=== PATIENT | male | born 1990 | race Caucasian/White ===

== ENCOUNTER → 2021-04-23 13:32 | Outpatient (BNVA) | payer OTHER, SELFPAY | PROVIDERS: PCP Internal Medicine; Visit Provider Internal Medicine | DX: S62.336D Displaced fracture of neck of fifth metacarpal bone, right hand, subsequent encounter for fracture with routine healing (principal); W34.09XD Accidental discharge from other specified firearms, subsequent encounter | CPT/HCPCS: 99202 ==

== ENCOUNTER → 2021-07-30 15:31 | Outpatient (BNVA) | payer OTHER, SELFPAY | PROVIDERS: PCP Internal Medicine | DX: Z02.1 Encounter for pre-employment examination (principal) ==

== ENCOUNTER 2022-05-16 17:55 | Emergency (ER) | payer OTHER, SELFPAY ==
--- NOTE | ~2022-05-16 | XR_ITS ---
EXAMINATION: PORTABLE CHEST 1 VIEW CLINICAL INFORMATION: hypoxia . COMPARISON: 07/27/2012. TECHNIQUE: Portable frontal view of the chest was obtained. FINDINGS: The lungs are hypoexpanded with minimal basilar atelectasis. No focal infiltrate, effusion, edema, or pneumothorax. Cardiac and mediastinal silhouettes are within normal limits for technique. No acute bony abnormality seen. XR/XR chest 1V IMPRESSION: Hypoexpanded with minimal basilar atelectasis but otherwise no evidence of acute disease.
--- NOTE | ~2022-05-16 | CT_ITS ---
EXAMINATION: CTA CHEST PE STUDY CLINICAL INFORMATION: hypoxia, tachycardia COMPARISON: No pertinent prior studies are available for comparison. TECHNIQUE: Prior to contrast administration, noncontrast localization images were obtained. After the administration of 65 mL of Omnipaque nonionic IV contrast, contiguous thin slice helical images were obtained through the thorax. Reformatted MIP images in the coronal and sagittal planes were obtained at the acquisition workstation. This CT examination was performed using dose optimization techniques as appropriate, variously including the following: *Automated exposure control *Adjustment of mA and/or kV according to patient size (this includes techniques or standardized protocols for targeted exams where dose is matched to indication/reason for exam; i.e. extremities or head) *Use of iterative reconstruction technique DLP: 453 mGy-cm. FINDINGS: The bolus timing on this study was suboptimal but acceptable for visualization of the pulmonary arterial tree. There are no intraluminal pulmonary arterial filling defects present to suggest central pulmonary embolism. Dependent atelectasis. No abnormal pulmonary nodules or masses are appreciated. No significant hilar or mediastinal adenopathy. There is no evidence of pleural effusion or pneumothorax. The heart is normal in size. No evidence of ventricular septal bowing or right heart strain. Great vessels are normal. Small hiatal hernia. There is no pericardial effusion or pericardial thickening. Limited evaluation of the upper abdominal viscera demonstrates prominent spleen measuring 16.[address] in AP length. CT/CT angio chest PE protocol IMPRESSION: No central pulmonary emboli. Distal branch vessels are less well seen but no segmental or subsegmental pulmonary emboli appreciated either VTE: Negative
[2022-05-16 18:12] LABS: Glucose, Whole Blood 120 mg/dL (60-115)
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
[2022-05-16 18:15] VITALS: BP 129/73; PULSE 121; O2SAT 85
--- NOTE | 2022-05-16 18:21 | ECG_ITS ---
Test Reason : GENERAL MEDICAL Blood Pressure : / mmHG Vent. Rate : 125 BPM Atrial Rate : 125 BPM P-R Int : 146 ms QRS Dur : 108 ms QT Int : 316 ms P-R-T Axes : 039 -26 032 degrees QTc Int : 456 ms Sinus tachycardia Minimal voltage criteria for LVH, may be normal variant ( R in aVL ) Abnormal ECG No previous ECGs available Referred By: Hannah Watt Electronically Signed By:ANÍBAL OLSON
[2022-05-16 18:30] VITALS: BP 116/49; PULSE 127; RESP 18; TEMP 37; O2SAT 96; BMI 30.8
[2022-05-16] MEDS: 0.9 % Sodium Chloride 1,000 ML 999 ML IVCONT ×2 (18:52→21:23)
[2022-05-16 18:54] LABS: MANUAL DIFF FLAG NO
[2022-05-16 18:57] LABS: Basophils Absolute Auto 0.2 X10*3/uL (0.0-0.2); Basophils Percent Auto 1.9 % (0-2); Eosinophils Absolute Auto 0.4 X10*3/uL (0.0-0.4); Eosinophils Percent Auto 4.2 % (0-4); Hematocrit 45.8 % (42.0-52.0); Hemoglobin 15.5 g/dl (14.0-18.0); Imm Gran Abs Auto 0.03 X10*3/uL (0.00-0.03); Imm Gran Pct Auto 0.4 % (0.0-0.4); Lymphocytes Absolute Auto 2.8 X10*3/uL (1.2-4.9); Lymphocytes Percent Auto 33.1 % (20-40); Mean Corpuscular HGB Conc 33.8 g/dl (31.0-36.0); Mean Corpuscular Hemoglobin 31.3 pg (27.0-33.0); Mean Corpuscular Volume 92.5 fL (80.0-98.0); Mean Platelet Volume 11.6 fL (9.4-12.4); Monocytes Absolute Auto 0.7 X10*3/uL (0.1-1.2); Neutrophils Absolute Auto 4.4 x10*3/uL (2.0-8.3); Neutrophils Percent Auto 52.4 % (45-73); Platelet Count 160 X10*3/uL (160-400); Red Blood Count 4.95 X10*6/uL (4.60-5.80); Red Cell Distribution Width 12.9 % (11.0-16.0); White Blood Count 8.5 X10*3/uL (4.8-10.8)
[2022-05-16 19:17] LABS: Alanine Aminotransferase 85 U/L (0-40); Albumin Level 4.5 g/dL (3.5-5.0); Alkaline Phosphatase 144 U/L (39-117); Anion Gap 19 (12-20); Aspartate Amino Transferase 101 U/L (5-37); Bilirubin Direct 0.3 mg/dL (0.0-0.5); Bilirubin Total 0.7 mg/dL (0.0-1.0); Blood Urea Nitrogen 8 mg/dL (9-16); Calcium 9.4 mg/dL (8.4-10.2); Carbon Dioxide 25 mmol/L (22-29); Chloride 106 mmol/L (96-108); Creatinine Clr Calc Pharmacy 155.6; Estimated Glomerular Filt Rate > 60; Ethanol 374 mg/dL; Glucose Random 124 mg/dL (60-115); Lipase 19 U/L (8-78); Sodium 146 mmol/L (135-145); Total Protein 8.4 g/dL (6.5-8.0)
[2022-05-16 19:19] LABS: Troponin-I High Sensitivity < 3.5 ng/L (<3.5-35.0)
[2022-05-16 19:34] LABS: D Dimer High Sensitivity < 150 NG/ML
[2022-05-16 19:50] VITALS: BP 113/57; PULSE 118; RESP 19; TEMP 36.8; O2SAT 94
[2022-05-16 20:00] VITALS: BP 113/57; PULSE 127; RESP 16; O2SAT 95
--- NOTE | 2022-05-16 20:28 | PC.NURSE ---
pt a&ox3, sinus tach on monitor, vss, 18G IV placed left AC, labs drawn, 1L NS running, urine sample obtained, no new orders at this time.
[2022-05-16 20:38] LABS: Appearance Urine Clear; Color Urine Yellow; Glucose Urine UA Negative (Negative); Leukocyte Esterase Urine Negative (Negative); Nitrite Urine Negative (Negative); PH 6.5 (5.0-9.0); Urine Blood Negative (Negative); Urine Ketones Negative (Negative); Urine Protein Negative (Neg-Trace)
[2022-05-16 20:51] LABS: Amphetamine Screen Urine Not Detected (Not Detect); Barbiturates, Urine Not Detected (Not Detect); Benzodiazepines Screen Urine Not Detected (Not Detect); Cannabinoid Screen Urine Not Detected (Not Detect); Cocaine Screen Urine Not Detected (Not Detect); Fentanyl, urine Not Detected (Not Detect); Opiate Screen Urine Not Detected (Not Detect); Phencyclidine Screen Urine Not Detected (Not Detect)
--- NOTE | 2022-05-16 21:37 | PC.NURSE ---
pt taken off oxygen to test O2. pt desats into the 90's. pt placed back on O2. Will Medicated.
[2022-05-16] MEDS: iohexoL 350 MG/ML 100 ML INFUS..BTL IV (21:58)
[2022-05-16] MEDS: LORazepam 1 MG TABLET 2 MG PO (21:59)
[2022-05-16 22:35] LABS: COVID-19 Test Negative (Negative); IDNOW Serial# 55D5AD1C
[2022-05-16 23:30] VITALS: BP 135/86; PULSE 88; RESP 17; TEMP 36.4; O2SAT 94
--- NOTE | 2022-05-16 23:32 | PC.NURSE ---
Reviewed discharge instructions with pt. pt verbalized underttanding.
== END 2022-05-16 23:37 | disposition home or self-care (01) ==
PROVIDERS: Nurse Practitioner Family; Emergency Provider Student in an Organized Health Care Education/Training Program
DX: F10.129 Alcohol abuse with intoxication, unspecified (principal); R00.0 Tachycardia, unspecified; R09.02 Hypoxemia; Y90.8 Blood alcohol level of 240 mg/100 ml or more; Z20.822 Contact with and (suspected) exposure to COVID-19; Z79.899 Other long term (current) drug therapy
CPT/HCPCS: 36415; 71045; 71275; 80048; 80076; 80307; 81003; 82077; 82947; 83690; 83735; 84484; 85025; 85379; 87635; 93005; 96360; 99285; Q9967

== ENCOUNTER 2023-02-11 06:02 | Inpatient (IN) | payer OTHER, SELFPAY ==
[2023-02-11] VITALS (16 sets, daily range): BP systolic 115–156; BP diastolic 55–93; PULSE 106–130; RESP 17–24; TEMP 36.6–37.1; O2SAT 92–100; BMI 30.8
--- NOTE | 2023-02-11 | ECG_ITS ---
Test Reason : TACHYCARDIA Blood Pressure : / mmHG Vent. Rate : 127 BPM Atrial Rate : 127 BPM P-R Int : 152 ms QRS Dur : 088 ms QT Int : 316 ms P-R-T Axes : 052 -07 030 degrees QTc Int : 459 ms Sinus tachycardia Otherwise normal ECG When compared with ECG of 16-MAY-2022 18:42, No significant change was found Referred By: Generic ED Physician Electronically Signed By:TITI HUDSON
--- NOTE | ~2023-02-11 | CT_ITS ---
EXAMINATION: CT ABDOMEN AND PELVIS WITHOUT CONTRAST CLINICAL INFORMATION: Pancreatitis COMPARISON: None available. TECHNIQUE: Multidetector volumetric imaging was performed from the superior aspect of the liver through the pubic symphysis. Sagittal and coronal reformatted images were obtained on the technologist's workstation. This CT examination was performed using dose optimization techniques as appropriate, variously including the following: *Automated exposure control *Adjustment of mA and/or kV according to patient size (this includes techniques or standardized protocols for targeted exams where dose is matched to indication/reason for exam; i.e. extremities or head) *Use of iterative reconstruction technique DLP: 88 5 mGy-cm FINDINGS: LUNG BASES: The visualized lung bases are unremarkable. LIVER, GALLBLADDER, AND BILIARY TREE: Enlarged fatty liver. The gallbladder is normal. There is no biliary duct dilatation. PANCREAS: Unremarkable. SPLEEN: Unremarkable. ADRENAL GLANDS: Unremarkable. KIDNEYS AND URETERS: The kidneys are normal in size, shape, and attenuation. No hydronephrosis, hydroureter, or calculi seen. No perinephric stranding. BLADDER: Unremarkable. GASTROINTESTINAL TRACT: The small and large bowel are unremarkable. The appendix is unremarkable. ABDOMINAL WALL: No significant hernia is appreciated. Skin thickening and stranding of the subcutaneous fat of the right flank and buttock. LYMPH NODES: Normal. VASCULAR: Unremarkable. PELVIC VISCERA: Unremarkable. OSSEOUS STRUCTURES: Unremarkable. CT/CT abdomen pelvis wo IV con IMPRESSION: Enlarged fatty liver. Normal-appearing pancreas. Skin thickening and stranding of the subcutaneous fat over the right flank and buttock. Differential would include changes related to trauma cellulitis. Clinical correlation recommended. Fleischner guidelines were followed.
--- NOTE | ~2023-02-11 | CT_ITS ---
CT HEAD WITHOUT IV CONTRAST CT CERVICAL SPINE WITHOUT IV CONTRAST INDICATION: Fall. COMPARISON: None available. TECHNIQUE: Multidetector CT acquisitions of the head and cervical spine were obtained without IV contrast. Multiplanar reformats were acquired and utilized for image interpretation. This CT examination was performed using dose optimization techniques as appropriate, variously including the following: *Automated exposure control *Adjustment of mA and/or kV according to patient size (this includes techniques or standardized protocols for targeted exams where dose is matched to indication/reason for exam; i.e. extremities or head) *Use of iterative reconstruction technique FINDINGS: HEAD: There is no intracranial hemorrhage, hydrocephalus, extra-axial surface collection, midline shift, or other herniation pattern. Yan to white matter differentiation is diffusely maintained without evidence of an evolved acute territorial infarct. The basilar cisterns are preserved. No significant soft tissue abnormality. No acute osseous abnormality. The paranasal sinuses and the mastoid air cells are well aerated. CERVICAL SPINE: Straightening the cervical lordosis. The vertebral body heights are maintained. There is moderate disc volume loss at C4-C5. There are no acute fractures and there are no acute subluxations. Craniocervical junction is intact. CT/CT cervical spine wo IV con IMPRESSION: - No acute intracranial findings. - No acute osseous findings within the cervical spine.
--- NOTE | ~2023-02-11 | CT_ITS ---
CT HEAD WITHOUT IV CONTRAST CT CERVICAL SPINE WITHOUT IV CONTRAST INDICATION: Fall. COMPARISON: None available. TECHNIQUE: Multidetector CT acquisitions of the head and cervical spine were obtained without IV contrast. Multiplanar reformats were acquired and utilized for image interpretation. This CT examination was performed using dose optimization techniques as appropriate, variously including the following: *Automated exposure control *Adjustment of mA and/or kV according to patient size (this includes techniques or standardized protocols for targeted exams where dose is matched to indication/reason for exam; i.e. extremities or head) *Use of iterative reconstruction technique FINDINGS: HEAD: There is no intracranial hemorrhage, hydrocephalus, extra-axial surface collection, midline shift, or other herniation pattern. [place] to white matter differentiation is diffusely maintained without evidence of an evolved acute territorial infarct. The basilar cisterns are preserved. No significant soft tissue abnormality. No acute osseous abnormality. The paranasal sinuses and the mastoid air cells are well aerated. CERVICAL SPINE: Straightening the cervical lordosis. The vertebral body heights are maintained. There is moderate disc volume loss at C4-C5. There are no acute fractures and there are no acute subluxations. Craniocervical junction is intact. CT/CT head/brain wo IV con IMPRESSION: - No acute intracranial findings. - No acute osseous findings within the cervical spine.
--- NOTE | ~2023-02-11 | CT_ITS ---
EXAMINATION: CT CHEST WITHOUT CONTRAST CLINICAL INFORMATION: Rule out pneumonia COMPARISON: Previous chest CT and chest x-ray from April 2022 TECHNIQUE: Multidetector volumetric CT imaging of the chest was done. Axial MIP volume rendering provided. Sagittal and coronal reformatted images were obtained. This CT examination was performed using dose optimization techniques as appropriate, variously including the following: *Automated exposure control *Adjustment of mA and/or kV according to patient size (this includes techniques or standardized protocols for targeted exams where dose is matched to indication/reason for exam; i.e. extremities or head) *Use of iterative reconstruction technique DLP: 337 mGy-cm FINDINGS: LUNGS: The lungs are clear with no evidence of inflammation or nodules. MEDIASTINUM: The wall of the esophagus is diffusely thickened and the esophagus is slightly dilated and fluid-filled. The mediastinum is otherwise normal. CORONARY ARTERY CALCIFICATION: None visualized on this study. PLEURA: There is no pleural effusion. No pleural mass or thickening. AXILLA: No lymphadenopathy. UPPER ABDOMEN: Unremarkable. OSSEOUS STRUCTURES: Unremarkable. CT/CT chest wo IV con IMPRESSION: Diffuse wall thickening of the esophagus. The esophagus is slightly dilated and fluid-filled. This is a new finding from April 2022 exam. Esophagitis should be considered. Fleischner guidelines were followed.
[2023-02-11] MEDS: 0.9 % Sodium Chloride 1,000 ML 999 ML IV ×2 (06:23→07:47)
[2023-02-11] MEDS: LORazepam 2 MG/ML VIAL IVPUSH (06:24)
[2023-02-11] MEDS: ondansetron HCL 4 MG/2 ML VIAL IVPUSH ×4 (06:30→19:40)
[2023-02-11 06:34] LABS: Basophils Absolute Auto 0.1 X10*3/uL (0.0-0.2); Basophils Percent Auto 0.3 % (0-2); Hematocrit 44.7 % (42.0-52.0); Hemoglobin 16.4 g/dl (14.0-18.0); Imm Gran Abs Auto 0.23 X10*3/uL (0.00-0.03); Imm Gran Pct Auto 0.8 % (0.0-0.4); Lymphocytes Absolute Auto 1.2 X10*3/uL (1.2-4.9); Lymphocytes Percent Auto 3.9 % (20-40); MANUAL DIFF FLAG SCAN; Mean Corpuscular HGB Conc 36.7 g/dl (31.0-36.0); Mean Corpuscular Volume 84.5 fL (80.0-98.0); Mean Platelet Volume 12.2 fL (9.4-12.4); Monocytes Absolute Auto 1.7 X10*3/uL (0.1-1.2); Monocytes Percent Auto 5.7 % (2-11); Neutrophils Absolute Auto 26.6 x10*3/uL (2.0-8.3); Neutrophils Percent Auto 89.3 % (45-73); Platelet Count 183 X10*3/uL (160-400); Red Blood Count 5.29 X10*6/uL (4.60-5.80); Red Cell Distribution Width 12.6 % (11.0-16.0); SCAN SMEAR FLAG 1; White Blood Count 29.7 X10*3/uL (4.8-10.8)
[2023-02-11 06:41] LABS: INTERNATIONAL NORM RATIO 1.1 (0.9-1.1); Prothrombin Time 12.5 SEC (10.0-13.1)
[2023-02-11 06:44] LABS: Partial Thromboplastin Time 31.6 SEC (26.0-36.4)
--- NOTE | 2023-02-11 06:48 | ED_ITS ---
HPI - General Adult General Chief complaint: General Medical Stated complaint: Alcohol withdrawal Time Seen by Provider: 02/11/23 06:30 Source: patient Mode of arrival: ambulatory Limitations: no limitations History of Present Illness HPI narrative: 32 yold male with pmh of alcohol abuse presents to the ED for alochol withdrawal. Patient states he has been sober for 18 days cold turkey and then last night he had a relapse started drinking a lot of alcohol. Patient was drinking to compensate for lack of alcohol and the past 18 days and to treat his incoming withdrawal. Patient states abdominal pain, nausea, and vomitting. Patient also states tremors. Related Data Home Medications Medication Instructions Recorded Confirmed lisinopril 10 mg tablet 1 tab PO DAILY 05/16/22 02/11/23 acamprosate 333 mg tablet,delayed 666 mg PO TID 02/11/23 02/11/23 release bupropion HCl 300 mg 24 hr tablet, 300 mg PO DAILY 02/11/23 02/11/23 extended release clonidine HCl 0.2 mg tablet 0.2 mg PO Q8H PRN Anxiety 02/11/23 02/11/23 folic acid 1 mg tablet 1 mg PO DAILY 02/11/23 02/11/23 mirtazapine 15 mg tablet 15 mg PO BEDTIME 02/11/23 02/11/23 multivitamin with folic acid 400 1 tab PO DAILY 02/11/23 02/11/23 mcg tablet (Daily-Roma (with folic acid)) naltrexone microspheres 380 mg 380 mg IM QMONTH 02/11/23 02/11/23 intramuscular suspension,extended release (Vivitrol) thiamine HCl (vitamin B1) 100 mg 100 mg PO DAILY 02/11/23 02/11/23 tablet Allergies Allergy/AdvReac Type Severity Reaction Status Date / Time No Known Allergies Allergy Verified 05/16/22 18:15 Review of Systems Review of Systems: Tremors. Abdominal pain, nausea, vomiting, Yes all other systems are reviewed and are negative PMFSH Past Medical History Medical History (Updated 02/12/23 @ 09:22 by Vickie Heath MD) Anxiety Depression Hypertension Social History Social History Household Members: Spouse Housing: Apartment Alcohol intake: current Alcohol intake frequency: 3 or more drinks per day Alcohol type: hard liquor Patient Tobacco Use Status: Never used Tobacco Use of substances other than those prescribed or required for medical reasons: No Currently Displaying Signs/Symptoms of Drug Intoxication Withdrawal: No Have you been hit, kicked, punched, or otherwise hurt by someone within the past year? If so, by whom?: No Do you feel safe in your current relationship?: Yes Is there a partner from a previous relationship who is making you feel unsafe now?: No Are you made to feel afraid or neglected: No Advance Directives: No Advance Directives Information Provided: No Do you have thoughts of harming others: None Do you have a plan to hurt others: No Plan Recently lost weight without trying: No Nutrition Risks: Poor intake 0-25% >4 days service: No Physical Exam ED Vital Signs: Vital Signs - 24 hr 02/11/23 06:03 02/11/23 06:32 02/11/23 09:46 Temperature 98.7 F 97.9 F Pulse Rate 129 H 127 H 130 H Respiratory Rate 20 21 H 24 H Blood Pressure 156/88 H 140/93 H 151/74 H Pulse Oximetry 97 99 95 Oxygen Delivery Method Room Air Room Air Room Air 02/11/23 10:35 Temperature Pulse Rate 130 H Respiratory Rate 21 H Blood Pressure Pulse Oximetry 96 Oxygen Delivery Method Room Air BMI result Body Mass Index 30.8 Const General: cooperative, healthy appearing, comfortable, no acute distress, well de veloped, alert, awake and Physically active Orientation/consciousness: oriented to person, oriented to place, oriented to time and patient oriented x3 [facility] Head: Yes normal to inspection, Yes No palpable skull fracture present, Yes normocephalic, Yes atraumatic and No abrasion Eyes General: appearance normal, both eyes and all related structures Neck Neck: Yes normal visual inspection, Yes full ROM, Yes no lymphadenopathy, Yes no meningeal signs, Yes trachea midline, Yes supple, No anterior neck swelling and No tender Chest Chest palpation & inspection: normal inspection of the chest and normal palpation of entire chest wall Resp Effort & Inspection: normal respiratory effort and able to speak in complete sentences Auscultation: clear to auscultation bilaterally Cardio Jugular venous distension: no JVD Heart sounds: S1 normal heart sound present and S2 normal heart sound present GI Inspection: Yes normal to inspection and No abdominal wall ecchymosis Palpation (GI): Soft to palpation, not firm, Tenderness to palpation present (GI) (generalized), no guarding and not rigid General: No CVA tenderness and Yes no CVA tenderness Back/Spine/Pelvis Back: no CVA tenderness, No CVA tenderness and No back tenderness Back/spine/pelvis image: 1. Positive for area of ecchymosis and tenderness. Negative for erythema or warmth. Skin General skin exam: no rashes or lesions noted and elasticity normal Neuro General: oriented to person, oriented to place, oriented to time, patient oriented x3, gait normal, tone normal, moves all extremities, Normal light touch and pain sensation, no meningeal signs, no focal motor deficits, CN's II-XI intact bilaterally and normal sensation to monofilament Extrem General: Yes normal to inspection and Yes full ROM Psych Appearance: grossly normal, well kempt and not disheveled Course Reevaluation(s) Reevaluation #1: Patient presented as alcohol severe withdrawal. Patient already received Ativan and Zofran. Patient will be started on phenobarbital. Chemistry shows severe electrolyte deficiency. Fluids ordered. Thiamine and folate ordered. Patient in an TIFFANIE. Magnesium normal. Anion Gap is 41. Patient dehydrated. White blood cell count [id number] was sent for abdominal CT scan to check for pancreatitis other lipase is normal. AK I would not do IV contrast. Was sent for chest CT to rule out walking pneumonia aspiration pneumonia. ABG ordered with bicarb of 15 Time: 07:42 Reevaluation #2: Patient placed on sodium bicarb drip. Waiting for CT scan imaging results. Time: 07:50 Reevaluation #3: CT scan of chest shows esophagitis. CT scan of abdomen states no pancreatitis just fatty liver also show possible right flank subcutaneous cellulitis. Upon evaluation of right flank, it was found that patient has actual ecchymosis patient states he might have fallen the past 3 days but do not remember. Right flank negative for any erythema or warmth. just ecchymosis. Not suspecting cellulitis. Right flank area is a contusion. Will order head CT cervical spine CT scan due to possibility of fall. Chest CT negative for pneumonia. Time: 20:26 Additional Reevaluation(s): Consulted with ICU Dr., Dr. Heath recommends patient be admitted to ICU. Rec ommends Garcia administration, serum osmolality, and Tylenol/salicylate levels. Patient had one episode of mild coffee ground emesis.Protonix given 80mg bolus. Dr. Mittal recommends patient being on protonix drip for gastritis. Medications Administered Generic Name Dose Route Start Last Admin Trade Name Freq PRN Reason Stop Dose Admin Acamprosate 666 mg 02/12/23 21:00 02/14/23 16:13 Acamprosate Calcium 333 Mg Tablet.Dr PO Not Given TID DEVON Benzocaine 1 lozenge 02/12/23 00:28 02/13/23 11:23 Throat Lozenge, Medicated Lozenge MUCOUS MEM 1 lozenge Q2H PRN Administration Sore Throat Bupropion HCl 300 mg 02/12/23 20:40 02/14/23 09:04 Bupropion Hcl Xl 300 Mg Tab.Er.24h PO 300 mg DAILY DEVON Administration Calcium Carbonate 750 mg 02/12/23 14:34 02/14/23 03:58 Calcium Carbonate 750 Mg Tab.Chew PO 750 mg Q4H PRN Administration heartburn Clonidine HCl 0.2 mg 02/12/23 20:38 02/14/23 12:02 Clonidine Hcl 0.2 Mg Tablet PO 0.2 mg Q8H PRN Administration Anxiety Protocol Folic Acid 1 mg 02/13/23 09:00 02/14/23 09:04 Folic Acid 1 Mg Tablet PO 1 mg DAILY DEVON Administration Lisinopril 10 mg 02/13/23 09:00 02/14/23 09:04 Lisinopril 10 Mg Tablet PO 10 mg DAILY DEVON Administration Protocol Mirtazapine 15 mg 02/12/23 21:00 02/13/23 20:31 Mirtazapine 15 Mg Tablet PO 15 mg BEDTIME DEVON Administration Multivitamins/Vitamin C 1 tab 02/13/23 09:00 02/14/23 09:05 Multivitamin Tablet PO 1 tab DAILY DEVON Administration Ondansetron HCl 4 mg 02/12/23 14:34 02/13/23 20:32 Ondansetron Hcl 4 Mg/2 Ml Vial IVPUSH 4 mg Q8H PRN Administration Nausea and Vomiting Phenobarbital 30 mg 02/13/23 21:00 02/14/23 09:04 Phenobarbital 30 Mg Tablet PO 02/15/23 09:01 30 mg BID DEVON Administration Protocol Phenobarbital Sodium 130 mg 02/14/23 12:09 02/14/23 13:46 Phenobarbital Sodium 130 Mg/Ml Vial IM 130 mg ONCE PRN Administration Alcohol Withdrawal Sucralfate 1 gm 02/13/23 11:30 02/14/23 17:22 Sucralfate Oral Suspension 1 Gm/10 Ml Oral.Susp PO 1 gm QIDACHS DEVON Administration Thiamine HCl 100 mg 02/13/23 09:00 02/14/23 09:05 Thiamine Hcl 100 Mg Tablet PO 100 mg DAILY DEVON Administration Discontinued Medications Generic Name Dose Route Start Last Admin Trade Name Terranceq PRN Reason Stop Dose Admin Al Hydroxide/Mg Hydroxide 30 ml 02/12/23 20:39 02/12/23 20:54 Magnesium Hydrox/Alum Hydrox 30 Ml Oral.Susp PO 02/12/23 20:40 30 ml ONCE ONE Administration Folic Acid 1 mg 02/11/23 07:08 02/11/23 07:59 Folic Acid 1 Mg Tablet PO 02/11/23 07:09 1 mg ONCE ONE Administration Sodium Chloride 1,000 mls @ 999 mls/hr 02/11/23 06:22 02/11/23 07:24 Ns IV 02/11/23 07:22 Infused .Q1H1M STA Infusion Sodium Chloride 1,000 mls @ 999 mls/hr 02/11/23 06:54 02/11/23 10:09 Ns IV 02/11/23 07:54 Infused .Q1H1M STA Infusion Sodium Bicarbonate 150 meq/ 1,000 mls @ 100 mls/hr 02/11/23 07:55 02/11/23 13:23 Dextrose IV 02/11/23 17:54 Infused .Q10H STA Infusion Albumin Human 100 mls @ 100 mls/hr 02/11/23 10:30 02/11/23 14:07 Kedbumin 25 % IV 02/11/23 12:29 Infused Q1H DEVON Infusion Potassium Chloride/Dextrose/Sod Cl 20 meq in 1,000 mls @ 150 mls/hr 02/11/23 12:00 02/11/23 20:33 Kcl 20 Meq In 5% Dex/0.45% Sod IVCONT Infused .Q6H40M DEVON Infusion Thiamine HCl 100 mg/ Sodium 101 mls @ 202 mls/hr 02/11/23 12:00 02/12/23 09:50 Chloride IV Infused DAILY DEVON Infusion Magnesium Sulfate 2 gm in 50 mls @ 25 mls/hr 02/11/23 11:52 02/11/23 15:49 Magnesium Sulfate/H2o IV 02/11/23 13:51 Infused ONCE ONE Infusion Potassium Phosphate 15 mmol in 250 mls @ 62.5 mls/hr 02/11/23 20:45 02/12/23 06:30 Kphos IV 02/12/23 04:44 Infused Q4H DEVON Infusion Potassium Chloride/Dextrose/Sod Cl 20 meq in 1,000 mls @ 100 mls/hr 02/11/23 20:45 02/13/23 23:21 Kcl 20 Meq In 5% Dex/0.9% Sod IVCONT 02/13/23 22:00 Infused .Q10H DEVON Infusion Potassium Phosphate 15 mmol in 250 mls @ 62.5 mls/hr 02/12/23 08:00 02/12/23 12:33 Kphos IV 02/12/23 11:59 Infused ONCE ONE Infusion Potassium Phosphate 15 mmol in 250 mls @ 62.5 mls/hr 02/12/23 08:57 02/12/23 11:17 Kphos IV 02/12/23 12:56 Not Given ONCE ONE Lorazepam 2 mg 02/11/23 06:15 02/11/23 06:24 Lorazepam 2 Mg/Ml Vial IVPUSH 02/11/23 06:16 2 mg ONCE ONE Administration Lorazepam 2 mg 02/11/23 06:52 02/11/23 08:10 Lorazepam 2 Mg/Ml Vial IVPUSH 02/11/23 06:53 Not Given ONCE ONE Morphine Sulfate 4 mg 02/11/23 06:52 02/11/23 07:57 Morphine Sulfate 4 Mg/Ml Cartridge IVPUSH 02/11/23 06:53 4 mg ONCE ONE Administration Protocol Ondansetron HCl 4 mg 02/11/23 06:28 02/11/23 06:30 Ondansetron Hcl 4 Mg/2 Ml Vial IVPUSH 02/11/23 06:29 4 mg ONCE ONE Administration Ondansetron HCl 4 mg 02/11/23 07:52 02/11/23 08:01 Ondansetron Hcl 4 Mg/2 Ml Vial IVPUSH 02/11/23 07:53 4 mg ONCE ONE Administration Ondansetron HCl 4 mg 02/11/23 13:24 02/11/23 19:40 Ondansetron Hcl 4 Mg/2 Ml Vial IVPUSH 4 mg Q4H PRN Administration Nausea Pantoprazole Sodium 80 mg 02/11/23 09:06 02/11/23 11:22 Pantoprazole Sodium 40 Mg/10 Ml Vial IVPUSH 02/11/23 09:07 80 mg ONCE ONE Administration Pantoprazole Sodium 40 mg 02/11/23 16:30 02/14/23 06:22 Pantoprazole Sodium 40 Mg/10 Ml Vial IVPUSH 40 mg BID@0630,1630 DEVON Administration Phenobarbital 60 mg 02/11/23 21:00 02/13/23 08:10 Phenobarbital 30 Mg Tablet PO 02/13/23 09:01 60 mg BID DEVON Administration Protocol Phenobarbital Sodium 427.7 mg 02/11/23 07:30 02/11/23 07:45 Phenobarbital Sodium 130 Mg/Ml Im Once IM 02/11/23 07:31 427.7 mg ONCE ONE Administration Protocol Phenobarbital Sodium 320.76 mg 02/11/23 10:30 02/11/23 13:35 Phenobarbital Sodium 130 Mg/Ml Vial Im Q3hx2 IM 02/11/23 13:31 320.76 mg Q3H DEVON Administration Protocol Thiamine HCl 100 mg 02/11/23 07:08 02/11/23 07:59 Thiamine Hcl 100 Mg Tablet PO 02/11/23 07:09 100 mg ONCE ONE Administration Medical Decision Making Medical Decision Making [facility] Narrative: 32-year-old male presents to the ED for alcohol withdrawal. Patient has history of alcohol abuse. Patient states he has been sober for 18 days and then went on a drinking binge. Patient states abdominal pain, nausea vomiting. Patient vital signs indicate tachycardia hypertensive. Due to severity of withdrawals patient given Ativan morphine and Zofran. Patient started on phenobarb protoc ol. Patient has white blood cell count [id number] no source of infection. CT scan is negative for pancreatitis. Chest CT negative for pneumonia. Abdominal CT scan shows fatty liver. Abdominal CT scan states right flank possible cellulitis but on physical exam right flank is not red or warm but does shows ecchymosis consistent with contusionn. Patient is in alcoholic ketoacidosis from alcohol abuse. Patient is in TIFFANIE. Patient's hyponatremia. Case discussed with ICU attending Dr. Heath for admission. Patient given sodium bicarb. patient given protonix for one episode of mild coffee ground emesis. Patient does not have pneumoina. Differential Diagnosis Differential Diagnoses: The differential diagnosis associated with the p resentation includes (Alcohol withdrawal, pancreatitis, delirium tremors, aspiration pneumonia, metabolic acidosis, brain bleed, skull fracture) Admission/Observation Consideration of admission/observation: Escalation of care including admission/observation considered Consult Healthcare Provider Management of the patient was discussed with: Hydrostatic Tubing Tester (Dr. Heath ICU) Lab Data MDM Lab Attestation statement: I reviewed the patient's lab results. 02/11/23 06:21 02/11/23 06:21 Labs: Lab Results 02/11/23 02/11/23 02/11/23 Range/Units 06:21 06:21 06:21 WBC 29.7 H (4.8-10.8) X10*3/uL RBC 5.29 (4.60-5.80) X10*6/uL Hgb 16.4 (14.0-18.0) g/dl Hct 44.7 (42.0-52.0) % MCV 84.5 (80.0-98.0) fL MCH 31.0 (27.0-33.0) pg MCHC 36.7 H (31.0-36.0) g/dl RDW 12.6 (11.0-16.0) % Plt Count 183 (160-400) X10*3/uL MPV 12.2 (9.4-12.4) fL Immature Gran % (Auto) 0.8 H (0.0-0.4) % Neut % (Auto) 89.3 H (45-73) % Lymph % (Auto) 3.9 L (20-40) % Putnam % (Auto) 5.7 (2-11) % Eos % (Auto) 0.0 (0-4) % Baso % (Auto) 0.3 (0-2) % Lymph # (Auto) 1.2 (1.2-4.9) X10*3/uL Putnam # (Auto) 1.7 H (0.1-1.2) X10*3/uL Eos # (Auto) 0.0 (0.0-0.4) X10*3/uL Baso # (Auto) 0.1 (0.0-0.2) X10*3/uL Abs Immat Gran (auto) 0.23 H (0.00-0.03) X10*3/uL Absolute Neuts (auto) 26.6 H (2.0-8.3) x10*3/uL Absolute Nucleated RBC 0.000 (0.0-0.012) X10*3/uL Nucleated RBC % (auto) 0.0 (0.0-0.2) /100WBC Smear Tech's Comments VERIFIED PT 12.5 (10.0-13.1) SEC INR 1.1 (0.9-1.1) APTT 31.6 (26.0-36.4) SEC O2 Saturation % ABG pH at Pt Temp (7.35-7.45) ABG pCO2 at Pt Temp (32-45) mmHg ABG pO2 at Pt Temp (83-108) mmHg ABG HCO3 (22-26) mmol/L ABG Base Excess (Actual) mmol/L Sodium 129 L (135-145) mmol/L Potassium 4.4 (3.3-5.1) mmol/L Chloride 79 L D (96-108) mmol/L Carbon Dioxide 13 L (22-29) mmol/L Anion Gap 41 H (12-20) BUN 22 H (9-16) mg/dL Creatinine 1.58 H (0.5-1.4) mg/dL Estim Creat Clear Calc 94.6 Estimated GFR 51 Random Glucose 130 H (60-115) mg/dL Osmolality (281-305) mosm/kg Lactic Acid (0.5-2.0) mmol/L Lactic Acid F/U @ 2Hr (0.5-2.0) mmol/L Calcium 9.6 (8.4-10.2) mg/dL Phosphorus (2.7-4.5) mg/dL Magnesium 1.7 (1.6-2.6) mg/dL Total Bilirubin 2.6 H (0.0-1.0) mg/dL AST 120 H (5-37) U/L ALT 104 H (0-40) U/L Alkaline Phosphatase 164 H (39-117) U/L Troponin I High Sens (<3.5-35.0) ng/L Total Protein 9.1 H (6.5-8.0) g/dL Albumin 5.2 H (3.5-5.0) g/dL Lipase 19 (8-78) U/L Urine Color Urine Appearance Urine pH (5.0-9.0) Ur Specific Pearson (1.005-1.025) Urine Protein (Neg-Trace) mg/dL Urine Glucose (UA) (Negative) mg/dL Urine Ketones (Negative) mg/dL Urine Blood (Negative) Urine Nitrite (Negative) Ur Leukocyte Esterase (Negative) Urine RBC (0-2) /HPF Urine WBC (0-5) /HPF Ur Squamous Epith Cells (0-2) /HPF Urine Bacteria (None Seen) Hyaline Casts (0-2) /LPF Salicylates (15-30) mg/dL Urine Opiates Screen (Not Detect) Urine Fentanyl Screen (Not Detect) Acetaminophen (<30) mcg/mL Ur Barbiturates Screen (Not Detect) Ur Phencyclidine Scrn (Not Detect) Ur Amphetamines Screen (Not Detect) U Benzodiazepines Scrn (Not Detect) Urine Cocaine Screen (Not Detect) U Marijuana (THC) Screen (Not Detect) Volat Analys Perform On Ethyl Alcohol 11 mg/dL Ethyl Alcohol mg/dL (NONE DETECTED) mg/dL Ethyl Alcohol g/dL (NONE DETECTED) g/dL(%) Isopropyl Alc, Quant (NONE DETECTED) mg/dL Acetone Level (NONE DETECTED) mg/dL B-Hydroxybutyrate (0.02-0.027) mmol/L 02/11/23 02/11/23 02/11/23 Range/Units 07:09 07:38 07:38 WBC (4.8-10.8) X10*3/uL RBC (4.60-5.80) X10*6/uL Hgb (14.0-18.0) g/dl Hct (42.0-52.0) % MCV (80.0-98.0) fL MCH (27.0-33.0) pg MCHC (31.0-36.0) g/dl RDW (11.0-16.0) % Plt Count (160-400) X10*3/uL MPV (9.4-12.4) fL Immature Gran % (Auto) (0.0-0.4) % Neut % (Auto) (45-73) % Lymph % (Auto) (20-40) % Putnam % (Auto) (2-11) % Eos % (Auto) (0-4) % Baso % (Auto) (0-2) % Lymph # (Auto) (1.2-4.9) X10*3/uL Putnam # (Auto) (0.1-1.2) X10*3/uL Eos # (Auto) (0.0-0.4) X10*3/uL Baso # (Auto) (0.0-0.2) X10*3/uL Abs Immat Gran (auto) (0.00-0.03) X10*3/uL Absolute Neuts (auto) (2.0-8.3) x10*3/uL Absolute Nucleated RBC (0.0-0.012) X10*3/uL Nucleated RBC % (auto) (0.0-0.2) /100WBC Smear Tech's Comments PT (10.0-13.1) SEC INR (0.9-1.1) APTT (26.0-36.4) SEC O2 Saturation 89.0 % ABG pH at Pt Temp 7.39 (7.35-7.45) ABG pCO2 at Pt Temp 24 L (32-45) mmHg ABG pO2 at Pt Temp 70 L (83-108) mmHg ABG HCO3 15 L (22-26) mmol/L ABG Base Excess (Actual) -7.3 mmol/L Sodium (135-145) mmol/L Potassium (3.3-5.1) mmol/L Chloride (96-108) mmol/L Carbon Dioxide (22-29) mmol/L Anion Gap (12-20) BUN (9-16) mg/dL Creatinine (0.5-1.4) mg/dL Estim Creat Clear Calc Estimated GFR Random Glucose (60-115) mg/dL Osmolality (281-305) mosm/kg Lactic Acid 3.4 H* (0.5-2.0) mmol/L Lactic Acid F/U @ 2Hr (0.5-2.0) mmol/L Calcium (8.4-10.2) mg/dL Phosphorus (2.7-4.5) mg/dL Magnesium (1.6-2.6) mg/dL Total Bilirubin (0.0-1.0) mg/dL AST (5-37) U/L ALT (0-40) U/L Alkaline Phosphatase (39-117) U/L Troponin I High Sens 20.2 (<3.5-35.0) ng/L Total Protein (6.5-8.0) g/dL Albumin (3.5-5.0) g/dL Lipase (8-78) U/L Urine Color Urine Appearance Urine pH (5.0-9.0) Ur Specific Pearson (1.005-1.025) Urine Protein (Neg-Trace) mg/dL Urine Glucose (UA) (Negative) mg/dL Urine Ketones (Negative) mg/dL Urine Blood (Negative) Urine Nitrite (Negative) Ur Leukocyte Esterase (Negative) Urine RBC (0-2) /HPF Urine WBC (0-5) /HPF Ur Squamous Epith Cells (0-2) /HPF Urine Bacteria (None Seen) Hyaline Casts (0-2) /LPF Salicylates (15-30) mg/dL Urine Opiates Screen (Not Detect) Urine Fentanyl Screen (Not Detect) Acetaminophen (<30) mcg/mL Ur Barbiturates Screen (Not Detect) Ur Phencyclidine Scrn (Not Detect) Ur Amphetamines Screen (Not Detect) U Benzodiazepines Scrn (Not Detect) Urine Cocaine Screen (Not Detect) U Marijuana (THC) Screen (Not Detect) Volat Analys Perform On Ethyl Alcohol mg/dL Ethyl Alcohol mg/dL (NONE DETECTED) mg/dL Ethyl Alcohol g/dL (NONE DETECTED) g/dL(%) Isopropyl Alc, Quant (NONE DETECTED) mg/dL Acetone Level (NONE DETECTED) mg/dL B-Hydroxybutyrate (0.02-0.027) mmol/L 02/11/23 02/11/23 02/11/23 Range/Units 09:50 09:50 09:53 WBC (4.8-10.8) X10*3/uL RBC (4.60-5.80) X10*6/uL Hgb (14.0-18.0) g/dl Hct (42.0-52.0) % MCV (80.0-98.0) fL MCH (27.0-33.0) pg MCHC (31.0-36.0) g/dl RDW (11.0-16.0) % Plt Count (160-400) X10*3/uL MPV (9.4-12.4) fL Immature Gran % (Auto) (0.0-0.4) % Neut % (Auto) (45-73) % Lymph % (Auto) (20-40) % Putnam % (Auto) (2-11) % Eos % (Auto) (0-4) % Baso % (Auto) (0-2) % Lymph # (Auto) (1.2-4.9) X10*3/uL Putnam # (Auto) (0.1-1.2) X10*3/uL Eos # (Auto) (0.0-0.4) X10*3/uL Baso # (Auto) (0.0-0.2) X10*3/uL Abs Immat Gran (auto) (0.00-0.03) X10*3/uL Absolute Neuts (auto) (2.0-8.3) x10*3/uL Absolute Nucleated RBC (0.0-0.012) X10*3/uL Nucleated RBC % (auto) (0.0-0.2) /100WBC Smear Tech's Comments PT (10.0-13.1) SEC INR (0.9-1.1) APTT (26.0-36.4) SEC O2 Saturation % ABG pH at Pt Temp (7.35-7.45) ABG pCO2 at Pt Temp (32-45) mmHg ABG pO2 at Pt Temp (83-108) mmHg ABG HCO3 (22-26) mmol/L ABG Base Excess (Actual) mmol/L Sodium (135-145) mmol/L Potassium (3.3-5.1) mmol/L Chloride (96-108) mmol/L Carbon Dioxide (22-29) mmol/L Anion Gap (12-20) BUN (9-16) mg/dL Creatinine (0.5-1.4) mg/dL Estim Creat Clear Calc Estimated GFR Random Glucose (60-115) mg/dL Osmolality (281-305) mosm/kg Lactic Acid (0.5-2.0) mmol/L Lactic Acid F/U @ 2Hr (0.5-2.0) mmol/L Calcium (8.4-10.2) mg/dL Phosphorus (2.7-4.5) mg/dL Magnesium (1.6-2.6) mg/dL Total Bilirubin (0.0-1.0) mg/dL AST (5-37) U/L ALT (0-40) U/L Alkaline Phosphatase (39-117) U/L Troponin I High Sens (<3.5-35.0) ng/L Total Protein (6.5-8.0) g/dL Albumin (3.5-5.0) g/dL Lipase (8-78) U/L Urine Color Yellow Urine Appearance Clear Urine pH 5.5 (5.0-9.0) Ur Specific Pearson 1.020 (1.005-1.025) Urine Protein 30 (1+) H (Neg-Trace) mg/dL Urine Glucose (UA) Negative (Negative) mg/dL Urine Ketones >=160 (Negative) mg/dL Urine Blood Negative (Negative) Urine Nitrite Negative (Negative) Ur Leukocyte Esterase Negative (Negative) Urine RBC 3-5 H (0-2) /HPF Urine WBC 0-5 (0-5) /HPF Ur Squamous Epith Cells 3-5 (0-2) /HPF Urine Bacteria None Seen (None Seen) Hyaline Casts >20 (0-2) /LPF Salicylates < 5.0 L (15-30) mg/dL Urine Opiates Screen POSITIVE H (Not Detect) Urine Fentanyl Screen Not Detected (Not Detect) Acetaminophen < 17 (<30) mcg/mL Ur Barbiturates Screen POSITIVE H (Not Detect) Ur Phencyclidine Scrn Not Detected (Not Detect) Ur Amphetamines Screen Not Detected (Not Detect) U Benzodiazepines Scrn Not Detected (Not Detect) Urine Cocaine Screen Not Detected (Not Detect) U Marijuana (THC) Screen Not Detected (Not Detect) Volat Analys Perform On Ethyl Alcohol mg/dL Ethyl Alcohol mg/dL (NONE DETECTED) mg/dL Ethyl Alcohol g/dL (NONE DETECTED) g/dL(%) Isopropyl Alc, Quant (NONE DETECTED) mg/dL Acetone Level (NONE DETECTED) mg/dL B-Hydroxybutyrate (0.02-0.027) mmol/L 02/11/23 02/11/23 02/11/23 Range/Units 09:53 09:53 11:43 WBC (4.8-10.8) X10*3/uL RBC (4.60-5.80) X10*6/uL Hgb (14.0-18.0) g/dl Hct (42.0-52.0) % MCV (80.0-98.0) fL MCH (27.0-33.0) pg MCHC (31.0-36.0) g/dl RDW (11.0-16.0) % Plt Count (160-400) X10*3/uL MPV (9.4-12.4) fL Immature Gran % (Auto) (0.0-0.4) % Neut % (Auto) (45-73) % Lymph % (Auto) (20-40) % Putnam % (Auto) (2-11) % Eos % (Auto) (0-4) % Baso % (Auto) (0-2) % Lymph # (Auto) (1.2-4.9) X10*3/uL Putnam # (Auto) (0.1-1.2) X10*3/uL Eos # (Auto) (0.0-0.4) X10*3/uL Baso # (Auto) (0.0-0.2) X10*3/uL Abs Immat Gran (auto) (0.00-0.03) X10*3/uL Absolute Neuts (auto) (2.0-8.3) x10*3/uL Absolute Nucleated RBC (0.0-0.012) X10*3/uL Nucleated RBC % (auto) (0.0-0.2) /100WBC Smear Tech's Comments PT (10.0-13.1) SEC INR (0.9-1.1) APTT (26.0-36.4) SEC O2 Saturation % ABG pH at Pt Temp (7.35-7.45) ABG pCO2 at Pt Temp (32-45) mmHg ABG pO2 at Pt Temp (83-108) mmHg ABG HCO3 (22-26) mmol/L ABG Base Excess (Actual) mmol/L Sodium (135-145) mmol/L Potassium (3.3-5.1) mmol/L Chloride (96-108) mmol/L Carbon Dioxide (22-29) mmol/L Anion Gap (12-20) BUN (9-16) mg/dL Creatinine (0.5-1.4) mg/dL Estim Creat Clear Calc Estimated GFR Random Glucose (60-115) mg/dL Osmolality 298 (281-305) mosm/kg Lactic Acid (0.5-2.0) mmol/L Lactic Acid F/U @ 2Hr 1.6 (0.5-2.0) mmol/L Calcium (8.4-10.2) mg/dL Phosphorus 2.1 L (2.7-4.5) mg/dL Magnesium (1.6-2.6) mg/dL Total Bilirubin (0.0-1.0) mg/dL AST (5-37) U/L ALT (0-40) U/L Alkaline Phosphatase (39-117) U/L Troponin I High Sens (<3.5-35.0) ng/L Total Protein (6.5-8.0) g/dL Albumin (3.5-5.0) g/dL Lipase (8-78) U/L Urine Color Urine Appearance Urine pH (5.0-9.0) Ur Specific Pearson (1.005-1.025) Urine Protein (Neg-Trace) mg/dL Urine Glucose (UA) (Negative) mg/dL Urine Ketones (Negative) mg/dL Urine Blood (Negative) Urine Nitrite (Negative) Ur Leukocyte Esterase (Negative) Urine RBC (0-2) /HPF Urine WBC (0-5) /HPF Ur Squamous Epith Cells (0-2) /HPF Urine Bacteria (None Seen) Hyaline Casts (0-2) /LPF Salicylates (15-30) mg/dL Urine Opiates Screen (Not Detect) Urine Fentanyl Screen (Not Detect) Acetaminophen (<30) mcg/mL Ur Barbiturates Screen (Not Detect) Ur Phencyclidine Scrn (Not Detect) Ur Amphetamines Screen (Not Detect) U Benzodiazepines Scrn (Not Detect) Urine Cocaine Screen (Not Detect) U Marijuana (THC) Screen (Not Detect) Volat Analys Perform On Ethyl Alcohol mg/dL Ethyl Alcohol mg/dL (NONE DETECTED) mg/dL Ethyl Alcohol g/dL (NONE DETECTED) g/dL(%) Isopropyl Alc, Quant (NONE DETECTED) mg/dL Acetone Level (NONE DETECTED) mg/dL B-Hydroxybutyrate 7.60 H (0.02-0.027) mmol/L 02/11/23 Range/Units 11:43 WBC (4.8-10.8) X10*3/uL RBC (4.60-5.80) X10*6/uL Hgb (14.0-18.0) g/dl Hct (42.0-52.0) % MCV (80.0-98.0) fL MCH (27.0-33.0) pg MCHC (31.0-36.0) g/dl RDW (11.0-16.0) % Plt Count (160-400) X10*3/uL MPV (9.4-12.4) fL Immature Gran % (Auto) (0.0-0.4) % Neut % (Auto) (45-73) % Lymph % (Auto) (20-40) % [place] % (Auto) (2-11) % Eos % (Auto) (0-4) % Baso % (Auto) (0-2) % Lymph # (Auto) (1.2-4.9) X10*3/uL [place] # (Auto) (0.1-1.2) X10*3/uL Eos # (Auto) (0.0-0.4) X10*3/uL Baso # (Auto) (0.0-0.2) X10*3/uL Abs Immat Gran (auto) (0.00-0.03) X10*3/uL Absolute Neuts (auto) (2.0-8.3) x10*3/uL Absolute Nucleated RBC (0.0-0.012) X10*3/uL Nucleated RBC % (auto) (0.0-0.2) /100WBC Smear Tech's Comments PT (10.0-13.1) SEC INR (0.9-1.1) APTT (26.0-36.4) SEC O2 Saturation % ABG pH at Pt Temp (7.35-7.45) ABG pCO2 at Pt Temp (32-45) mmHg ABG pO2 at Pt Temp (83-108) mmHg ABG HCO3 (22-26) mmol/L ABG Base Excess (Actual) mmol/L Sodium (135-145) mmol/L Potassium (3.3-5.1) mmol/L Chloride (96-108) mmol/L Carbon Dioxide (22-29) mmol/L Anion Gap (12-20) BUN (9-16) mg/dL Creatinine (0.5-1.4) mg/dL Estim Creat Clear Calc Estimated GFR Random Glucose (60-115) mg/dL Osmolality (281-305) mosm/kg Lactic Acid (0.5-2.0) mmol/L Lactic Acid F/U @ 2Hr (0.5-2.0) mmol/L Calcium (8.4-10.2) mg/dL Phosphorus (2.7-4.5) mg/dL Magnesium (1.6-2.6) mg/dL Total Bilirubin (0.0-1.0) mg/dL AST (5-37) U/L ALT (0-40) U/L Alkaline Phosphatase (39-117) U/L Troponin I High Sens (<3.5-35.0) ng/L Total Protein (6.5-8.0) g/dL Albumin (3.5-5.0) g/dL Lipase (8-78) U/L Urine Color Urine Appearance Urine pH (5.0-9.0) Ur Specific [place] (1.005-1.025) Urine Protein (Neg-Trace) mg/dL Urine Glucose (UA) (Negative) mg/dL Urine Ketones (Negative) mg/dL Urine Blood (Negative) Urine Nitrite (Negative) Ur Leukocyte Esterase (Negative) Urine RBC (0-2) /HPF Urine WBC (0-5) /HPF Ur Squamous Epith Cells (0-2) /HPF Urine Bacteria (None Seen) Hyaline Casts (0-2) /LPF Salicylates (15-30) mg/dL Urine Opiates Screen (Not Detect) Urine Fentanyl Screen (Not Detect) Acetaminophen (<30) mcg/mL Ur Barbiturates Screen (Not Detect) Ur Phencyclidine Scrn (Not Detect) Ur Amphetamines Screen (Not Detect) U Benzodiazepines Scrn (Not Detect) Urine Cocaine Screen (Not Detect) U Marijuana (THC) Screen (Not Detect) Volat Analys Perform On WHOLE BLOOD Ethyl Alcohol mg/dL Ethyl Alcohol mg/dL NONE DETECTED (NONE DETECTED) mg/dL Ethyl Alcohol g/dL NONE DETECTED (NONE DETECTED) g/dL(%) Isopropyl Alc, Quant NONE DETECTED (NONE DETECTED) mg/dL Acetone Level 21 H (NONE DETECTED) mg/dL B-Hydroxybutyrate (0.02-0.027) mmol/L Independent Interpretation I performed an independent interpretation of an: EKG (Sinus tachycardia. Ventricular rate 127. Pr interval 152. Care is 88. QTC 459. Negative STEMI) and CT Scan Radiology Impression Discussion of test interpretation with radiology: I have reviewed the radiologist's reading. Independent Historian Clinical information obtained from an independent historian. History obtained from or confirmed by: Parent Chronic Conditions Patient?s care impacted by: Other (Alcohol abuse) Critical Care Time Critical Care Time Critical Care Time: Yes Total Critical Care Time: 60 Attestation: Patient is severe alcoholic withdrawal. placed on phenobarbital protocol and placed on sodium bicarb drip. Discharge Plan Discharge Clinical Impression: Alcohol withdrawal, TIFFANIE (acute kidney injury), Alcoholic ketoacidosis Patient Disposition: Admitted As Inpatient Interventions: Admission Worksheet (ED) Last Done: 02/11/23 15:12 Discharge Date/Time: 02/11/23 13:15
[2023-02-11 06:51] LABS: Alanine Aminotransferase 104 U/L (0-40); Albumin Level 5.2 g/dL (3.5-5.0); Alkaline Phosphatase 164 U/L (39-117); Anion Gap 41 (12-20); Aspartate Amino Transferase 120 U/L (5-37); Bilirubin Total 2.6 mg/dL (0.0-1.0); Blood Urea Nitrogen 22 mg/dL (9-16); Calcium 9.6 mg/dL (8.4-10.2); Carbon Dioxide 13 mmol/L (22-29); Chloride 79 mmol/L (96-108); Creatinine Clr Calc Pharmacy 94.6; Estimated Glomerular Filt Rate 51; Ethanol 11 mg/dL; Glucose Random 130 mg/dL (60-115); Lipase 19 U/L (8-78); Potassium 4.4 mmol/L (3.3-5.1); Sodium 129 mmol/L (135-145); Total Protein 9.1 g/dL (6.5-8.0)
--- NOTE | 2023-02-11 06:52 | ECG_ITS ---
Test Reason : etoh Blood Pressure : / mmHG Vent. Rate : 118 BPM Atrial Rate : 118 BPM P-R Int : 170 ms QRS Dur : 100 ms QT Int : 342 ms P-R-T Axes : 056 -16 035 degrees QTc Int : 479 ms Sinus tachycardia Minimal voltage criteria for LVH, may be normal variant ( R in aVL ) Borderline ECG When compared with ECG of 11-FEB-2023 06:22, No significant change was found Referred By: Pablo Woods Electronically Signed By:TITI HUDSON
[2023-02-11 07:01] LABS: SLIDE REVIEW VERIFIED
[2023-02-11 07:18] LABS: ABG Base Excess -7.3 mmol/L; ABG HCO3 15 mmol/L (22-26); ABG pCO2 24 mmHg (32-45); ABG pH 7.39 (7.35-7.45); ABG pO2 70 mmHg (83-108)
[2023-02-11 07:40] LABS: Magnesium 1.7 mg/dL (1.6-2.6)
[2023-02-11] MEDS: PHENobarbitaL sodium 130 MG/ML IM ONCE 427.7 MG IM (07:45)
[2023-02-11] MEDS: Morphine Sulfate 4 MG/ML CARTRIDGE IVPUSH (07:57)
[2023-02-11] MEDS: Folic Acid 1 MG TABLET PO (07:59)
[2023-02-11] MEDS: Thiamine HCL 100 MG TABLET PO (07:59)
[2023-02-11 08:04] LABS: Lactic Acid 3.4 mmol/L (0.5-2.0)
--- NOTE | 2023-02-11 08:04 | PC.NURSE ---
Pt alert and orient, calm, pleasant on approach. c/o pain to ABD and nausea, medication administered. call gomez placed with in reach and bed at lowest position.
[2023-02-11 08:07] LABS: Troponin-I High Sensitivity 20.2 ng/L (<3.5-35.0)
[2023-02-11 08:16] LABS: ABG Refer to POC result
[2023-02-11 09:43] LABS: Reflex Lactate? Lactic Acid Added
--- NOTE | 2023-02-11 10:04 | PHA.MEDREC ---
Pharmacy Consult ? Medication Reconciliation Pharmacy has completed the medication reconciliation. Patient confirmed medications. Patient reports not adherent when he is drinking. Reports use to take naltrexone and will restart, last filled in . Report not adherent to acampraosate, last filled 11/23/22. His last vivitrol injection was a few months ago. Fior Hirsch, PharmD
[2023-02-11 10:09] LABS: Appearance Urine Clear; Color Urine Yellow; Glucose Urine UA Negative (Negative); Leukocyte Esterase Urine Negative (Negative); Nitrite Urine Negative (Negative); PH 5.5 (5.0-9.0); UMIC TRIGGER UACC YES; Urine Blood Negative (Negative); Urine Ketones >=160 mg/dL (Negative); Urine Protein 30 (1+) mg/dL (Neg-Trace)
[2023-02-11 10:19] LABS: Bacteria Urine None Seen (None Seen); Hyaline Casts Urine >20 /LPF (0-2); WBC Urine 0-5 /HPF (0-5)
[2023-02-11 10:22] LABS: ~Lactic Acid-LAB USE ONLY 1.6 mmol/L (0.5-2.0)
[2023-02-11 10:24] LABS: Osmolality, Serum 298 mosm/kg (281-305)
[2023-02-11 10:26] LABS: Amphetamine Screen Urine Not Detected (Not Detect); Barbiturates, Urine POSITIVE (Not Detect); Benzodiazepines Screen Urine Not Detected (Not Detect); Cannabinoid Screen Urine Not Detected (Not Detect); Cocaine Screen Urine Not Detected (Not Detect); Fentanyl, urine Not Detected (Not Detect); Opiate Screen Urine POSITIVE (Not Detect); Phencyclidine Screen Urine Not Detected (Not Detect)
[2023-02-11 10:33] LABS: Acetaminophen LAB < 17 mcg/mL (<30); Salicylate < 5.0 mg/dL (15-30)
--- NOTE | 2023-02-11 10:33 | PC.NURSE ---
Pharmacy contacted, pending Sodium bi-carb from pharmacy
[2023-02-11] MEDS: Sodium Bicarbonate 8.4% 150 MEQ in Dextrose 5 % 850 ML 100 MEQ IV (11:20)
[2023-02-11] MEDS: PHENobarbitaL sodium 130 MG/ML VIAL IM Q3Hx2 320.76 MG IM ×2 (11:21→13:35)
[2023-02-11] MEDS: Albumin Human 25 % 100 ML IV ×2 (11:22→12:54)
[2023-02-11] MEDS: Pantoprazole Sodium 40 MG/10 ML VIAL 80 MG IVPUSH (11:22)
--- NOTE | 2023-02-11 12:11 | P.HPCC_ITS ---
History of Present Illness Date of Service: 02/11/23 Attending physician on admission: Vickie Heath Chief Complaint: Feels ill and with vague epigastric and periumbilical abdominal pain 32-year-old male who is a chronic binge alcoholic who just went on a recent binge for the last 3 days with very high volume of vodka stopped the the night before arriving here and and still has an alcohol level of 11 but he feels he is having some withdrawal issues he senses palpitations and he is in sinus tach no tremors he claims that he is having some visual hallucinations but he is perfectly oriented nonfocal neurologically and he is afebrile but feels better very sick with mid abdominal pain but a benign abdominal exam Bedside echo shows class 1 LV and RV function CT scan of the abdomen pelvis shows normal pancreas liver consistent with steatosis and chest the CT of course is clean and head CT scan is clean By laboratory he has evidence of metabolic acidosis with a profound anion gap of about 40 with a very trivial level of a lactate so clearly there is another metabolic acid and because the syndrome is so mimicked by salicylate toxicity I sent off that level sent off acetaminophen to get a sense as to whether not this is Roulette glutamic acid and of course will working him up for sepsis with volume replacement by protocol as well as culturing him but I do not believe that that is the case ultimately from what I am seeing I believe this is going to be alcoholic ketoacidosis so will send off a beta hydroxybutyrate and and urine for ketones and I believe he also has with the elevated transaminases alcoholic hepatitis but he has a normal PT INR and he has modest transaminase elevation so I do not think we are going to have a high meld score Review of Systems Review of Systems: Yes all other systems are reviewed and are negative [facility] Past Medical History Medical History (Updated 02/12/23 @ 09:22 by Vickie Heath MD) Anxiety Depression Hypertension Social History Social History Household Members: Spouse Housing: Apartment Alcohol intake: current Alcohol intake frequency: 3 or more drinks per day Alcohol type: hard liquor Patient Tobacco Use Status: Never used Tobacco Use of substances other than those prescribed or required for medical reasons: No Currently Displaying Signs/Symptoms of Drug Intoxication Withdrawal: No Have you been hit, kicked, punched, or otherwise hurt by someone within the past year? If so, by whom?: No Do you feel safe in your current relationship?: Yes Is there a partner from a previous relationship who is making you feel unsafe now?: No Are you made to feel afraid or neglected: No Advance Directives: No Advance Directives Information Provided: No Do you have thoughts of harming others: None Do you have a plan to hurt others: No Plan Recently lost weight without trying: No Nutrition Risks: Poor intake 0-25% >4 days Meds Allergies Allergy/AdvReac Type Severity Reaction Status Date / Time No Known Allergies Allergy Verified 05/16/22 18:15 Active Medications: Current Medications Sodium Bicarbonate 150 meq/ (Dextrose) 1,000 mls @ 100 mls/hr IV .Q10H STA Stop: 02/11/23 17:54 Last Admin: 02/11/23 11:20 Dose: 100 mls/hr Albumin Human (Kedbumin 25 %) 100 mls @ 100 mls/hr IV Q1H DEVON Stop: 02/11/23 12:29 Last Admin: 02/11/23 11:22 Dose: 100 mls/hr Potassium Chloride/Dextrose/Sod Cl (Kcl 20 Meq In 5% Dex/0.45% Sod) 20 meq in 1,000 mls @ 150 mls/hr IVCONT .Q6H40M DEVON Thiamine HCl 100 mg/ Sodium (Chloride) 101 mls @ 202 mls/hr IV DAILY DEVON Magnesium Sulfate (Magnesium Sulfate/H2o) 2 gm in 50 mls @ 25 mls/hr IV ONCE ONE Stop: 02/11/23 13:51 Pharmacy Consult (Consult Rx Etoh Phenob Im/Po) 1 each MISCELLANE ONCE PRN; Protocol PRN Reason: Consult order Phenobarbital (Phenobarbital 30 Mg Tablet) 60 mg PO BID DEVON; Protocol Stop: 02/13/23 09:01 Phenobarbital (Phenobarbital 30 Mg Tablet) 30 mg PO BID DEVON; Protocol Stop: 02/15/23 09:01 Phenobarbital (Phenobarbital 30 Mg Tablet) 30 mg PO DAILY DEVON; Protocol Stop: 02/17/23 09:01 Phenobarbital Sodium (Phenobarbital Sodium 130 Mg/Ml Vial Im Q3hx2) 320.76 mg IM Q3H DEVON; Protocol Stop: 02/11/23 13:31 Last Admin: 02/11/23 11:21 Dose: 320.76 mg Home Medications Medication Instructions Recorded Confirmed Last Taken Type lisinopril 10 mg tablet 1 tab PO DAILY 05/16/22 02/11/23 Unknown History acamprosate 333 mg tablet,delayed 666 mg PO TID 02/11/23 02/11/23 Unknown History release bupropion HCl 300 mg 24 hr tablet, 300 mg PO DAILY 02/11/23 02/11/23 Unknown History extended release clonidine HCl 0.2 mg tablet 0.2 mg PO Q8H PRN Anxiety 02/11/23 02/11/23 Unknown History folic acid 1 mg tablet 1 mg PO DAILY 02/11/23 02/11/23 Unknown History mirtazapine 15 mg tablet 15 mg PO BEDTIME 02/11/23 02/11/23 Unknown History multivitamin with folic acid 400 1 tab PO DAILY 02/11/23 02/11/23 Unknown History mcg tablet (Daily-Roma (with folic acid)) naltrexone microspheres 380 mg 380 mg IM QMONTH 02/11/23 02/11/23 2 Months Ago History intramuscular suspension,extended ~12/12/22 release (Vivitrol) thiamine HCl (vitamin B1) 100 mg 100 mg PO DAILY 02/11/23 02/11/23 Unknown History tablet Physical Exam Vital Signs: Vital Signs: Last Vital Signs Temp 97.9 F 02/11/23 09:46 Pulse 130 H 02/11/23 10:35 Resp 21 H 02/11/23 10:35 BP 151/74 H 02/11/23 09:46 Pulse Ox 96 02/11/23 10:35 O2 Del Method Room Air 02/11/23 10:35 BMI result Body Mass Index 30.8 Alert oriented and physically much more comfortable with resolution of that as we are resolving I should say his metabolic acidosis Tachycardic but not tremulous skin color is normal Abdomen is soft and nontender to exam with no organomegaly Lungs clear no adventitious sounds Cardiac exam with normal LV and RV function Results Labs 02/11/23 06:21 02/11/23 06:21 Labs: Laboratory Results - last 24 hr 02/11/23 02/11/23 02/11/23 06:21 06:21 06:21 MCV 84.5 MCH 31.0 MCHC 36.7 H RDW 12.6 Plt Count 183 MPV 12.2 Immature Gran % (Auto) 0.8 H Neut % (Auto) 89.3 H Lymph % (Auto) 3.9 L [place] % (Auto) 5.7 Eos % (Auto) 0.0 Baso % (Auto) 0.3 Lymph # (Auto) 1.2 [place] # (Auto) 1.7 H Eos # (Auto) 0.0 Baso # (Auto) 0.1 Abs Immat Gran (auto) 0.23 H Absolute Neuts (auto) 26.6 H Absolute Nucleated RBC 0.000 Nucleated RBC % (auto) 0.0 Smear Tech's Comments VERIFIED PT 12.5 INR 1.1 APTT 31.6 O2 Saturation ABG pH at Pt Temp ABG pCO2 at Pt Temp ABG pO2 at Pt Temp ABG HCO3 ABG Base Excess (Actual) Anion Gap 41 H Estim Creat Clear Calc 94.6 Estimated GFR 51 Random Glucose 130 H Osmolality Lactic Acid Lactic Acid F/U @ 2Hr Calcium 9.6 Magnesium 1.7 Total Bilirubin 2.6 H AST 120 H ALT 104 H Alkaline Phosphatase 164 H Troponin I High Sens Total Protein 9.1 H Albumin 5.2 H Lipase 19 Urine Color Urine Appearance Urine pH Ur Specific [place] Urine Protein Urine Glucose (UA) Urine Ketones Urine Blood Urine Nitrite Ur Leukocyte Esterase Urine RBC Urine WBC Ur Squamous Epith Cells Urine Bacteria Hyaline Casts Salicylates Urine Opiates Screen Urine Fentanyl Screen Acetaminophen Ur Barbiturates Screen Ur Phencyclidine Scrn Ur Amphetamines Screen U Benzodiazepines Scrn Urine Cocaine Screen U Marijuana (THC) Screen Ethyl Alcohol 11 02/11/23 02/11/23 02/11/23 07:09 07:38 07:38 MCV MCH MCHC RDW Plt Count MPV Immature Gran % (Auto) Neut % (Auto) Lymph % (Auto) [place] % (Auto) Eos % (Auto) Baso % (Auto) Lymph # (Auto) [place] # (Auto) Eos # (Auto) Baso # (Auto) Abs Immat Gran (auto) Absolute Neuts (auto) Absolute Nucleated RBC Nucleated RBC % (auto) Smear Tech's Comments PT INR APTT O2 Saturation 89.0 ABG pH at Pt Temp 7.39 ABG pCO2 at Pt Temp 24 L ABG pO2 at Pt Temp 70 L ABG HCO3 15 L ABG Base Excess (Actual) -7.3 Anion Gap Estim Creat Clear Calc Estimated GFR Random Glucose Osmolality Lactic Acid 3.4 H* Lactic Acid F/U @ 2Hr Calcium Magnesium Total Bilirubin AST ALT Alkaline Phosphatase Troponin I High Sens 20.2 Total Protein Albumin Lipase Urine Color Urine Appearance Urine pH Ur Specific [place] Urine Protein Urine Glucose (UA) Urine Ketones Urine Blood Urine Nitrite Ur Leukocyte Esterase Urine RBC Urine WBC Ur Squamous Epith Cells Urine Bacteria Hyaline Casts Salicylates Urine Opiates Screen Urine Fentanyl Screen Acetaminophen Ur Barbiturates Screen Ur Phencyclidine Scrn Ur Amphetamines Screen U Benzodiazepines Scrn Urine Cocaine Screen U Marijuana (THC) Screen Ethyl Alcohol 02/11/23 02/11/23 02/11/23 09:50 09:50 09:53 MCV MCH MCHC RDW Plt Count MPV Immature Gran % (Auto) Neut % (Auto) Lymph % (Auto) [place] % (Auto) Eos % (Auto) Baso % (Auto) Lymph # (Auto) [place] # (Auto) Eos # (Auto) Baso # (Auto) Abs Immat Gran (auto) Absolute Neuts (auto) Absolute Nucleated RBC Nucleated RBC % (auto) Smear Tech's Comments PT INR APTT O2 Saturation ABG pH at Pt Temp ABG pCO2 at Pt Temp ABG pO2 at Pt Temp ABG HCO3 ABG Base Excess (Actual) Anion Gap Estim Creat Clear Calc Estimated GFR Random Glucose Osmolality Lactic Acid Lactic Acid F/U @ 2Hr Calcium Magnesium Total Bilirubin AST ALT Alkaline Phosphatase Troponin I High Sens Total Protein Albumin Lipase Urine Color Yellow Urine Appearance Clear Urine pH 5.5 Ur Specific [place] 1.020 Urine Protein 30 (1+) H Urine Glucose (UA) Negative Urine Ketones >=160 Urine Blood Negative Urine Nitrite Negative Ur Leukocyte Esterase Negative Urine RBC 3-5 H Urine WBC 0-5 Ur Squamous Epith Cells 3-5 Urine Bacteria None Seen Hyaline Casts >20 Salicylates < 5.0 L Urine Opiates Screen POSITIVE H Urine Fentanyl Screen Not Detected Acetaminophen < 17 Ur Barbiturates Screen POSITIVE H Ur Phencyclidine Scrn Not Detected Ur Amphetamines Screen Not Detected U Benzodiazepines Scrn Not Detected Urine Cocaine Screen Not Detected U Marijuana (THC) Screen Not Detected Ethyl Alcohol 02/11/23 02/11/23 09:53 09:53 MCV MCH MCHC RDW Plt Count MPV Immature Gran % (Auto) Neut % (Auto) Lymph % (Auto) [place] % (Auto) Eos % (Auto) Baso % (Auto) Lymph # (Auto) [place] # (Auto) Eos # (Auto) Baso # (Auto) Abs Immat Gran (auto) Absolute Neuts (auto) Absolute Nucleated RBC Nucleated RBC % (auto) Smear Tech's Comments PT INR APTT O2 Saturation ABG pH at Pt Temp ABG pCO2 at Pt Temp ABG pO2 at Pt Temp ABG HCO3 ABG Base Excess (Actual) Anion Gap Estim Creat Clear Calc Estimated GFR Random Glucose Osmolality 298 Lactic Acid Lactic Acid F/U @ 2Hr 1.6 Calcium Magnesium Total Bilirubin AST ALT Alkaline Phosphatase Troponin I High Sens Total Protein Albumin Lipase Urine Color Urine Appearance Urine pH Ur Specific [place] Urine Protein Urine Glucose (UA) Urine Ketones Urine Blood Urine Nitrite Ur Leukocyte Esterase Urine RBC Urine WBC Ur Squamous Epith Cells Urine Bacteria Hyaline Casts Salicylates Urine Opiates Screen Urine Fentanyl Screen Acetaminophen Ur Barbiturates Screen Ur Phencyclidine Scrn Ur Amphetamines Screen U Benzodiazepines Scrn Urine Cocaine Screen U Marijuana (THC) Screen Ethyl Alcohol Imaging Radiologist's Impressions: Impressions Abdomen/Pelvis CT 02/11/23 07:25 IMPRESSION: Enlarged fatty liver. Normal-appearing pancreas. Skin thickening and stranding of the subcutaneous fat over the right flank and buttock. Differential would include changes related to trauma cellulitis. Clinical correlation recommended. Fleischner guidelines were followed. Chest CT 02/11/23 07:25 IMPRESSION: Diffuse wall thickening of the esophagus. The esophagus is slightly dilated and fluid-filled. This is a new finding from April 2022 exam. Esophagitis should be considered. Fleischner guidelines were followed. Cervical Spine CT 02/11/23 09:10 IMPRESSION: - No acute intracranial findings. - No acute osseous findings within the cervical spine. Head CT 02/11/23 09:10 IMPRESSION: - No acute intracranial findings. - No acute osseous findings within the cervical spine. Assessment and Plan (1) Alcohol withdrawal: Status: Acute (2) TIFFANIE (acute kidney injury): Status: Acute (3) Alcoholic ketoacidosis: Status: Acute (4) Alcoholic hepatitis without ascites: Status: Acute (5) Hypophosphatemia: Status: Acute (6) Hyponatremia: Status: Acute (7) Thrombocytopenia: Status: Acute Plan The plan now is IV fluids at relatively high rate with but with potassium and as needed magnesium and phosphate replacement and this is after we initiated IV thigh min as we continue to watch by TESFAYE protocol for worsening withdrawal sy mptomatology for which he is on phenobarbital protocol and we continue to watch his liver functions to be sure they do not worsen Time Spent With Patient Time: Total time managing care of this patient today 60____ minutes.
--- NOTE | 2023-02-11 12:24 | PC.NURSE ---
Pt A&O X 4, stated he was able to rest for a little. IV's patent, stated he is having positive effect from phenobarb protocol. remains in bed with at bedside.
[2023-02-11 13:04] LABS: Phosphorus 2.1 mg/dL (2.7-4.5)
[2023-02-11] MEDS: Thiamine HCL 100 MG in 0.9 % Sodium Chloride 100 ML 202 MG IV (13:31)
[2023-02-11] MEDS: KCl 20 mEq in 5% Dex/0.45% Sod 20 MEQ/1,000 ML IV.SOLN 150 MEQ IVCONT ×2 (13:32→19:42)
[2023-02-11] MEDS: Magnesium Sulfate/H2O 2 GM/50 ML PIGGYBACK IV (13:35)
--- NOTE | 2023-02-11 15:50 | PC.NURSE ---
per md stop bicarb drip and start Kcl drip. md informed of pt's CIWA, anxiety and nausea. zofrna given w/ minimal effect, md informed. no new orders at this time. admission assessment completed. pts took belongings home. pt requested psych consult, md informed. md spoke with pt and pt's at bedside
[2023-02-11] MEDS: Pantoprazole Sodium 40 MG/10 ML VIAL IVPUSH (16:37)
[2023-02-11 18:13] LABS: VBG Base Excess 5.1 mmol/L; VBG HCO3 28 mmol/L (22-26); VBG pCO2 37 mmHg; VBG pH 7.49 (7.32-7.43); VBG pO2 83 mmHg
[2023-02-11 18:15] LABS: INTERNATIONAL NORM RATIO 1.1 (0.9-1.1)
[2023-02-11 18:31] LABS: Venous Blood Gas Refer to POC result
[2023-02-11] MEDS: PHENobarbitaL 30 MG TABLET 60 MG PO (19:54)
[2023-02-11 20:08] LABS: Alanine Aminotransferase 74 U/L (0-40); Albumin Level 4.4 g/dL (3.5-5.0); Alkaline Phosphatase 104 U/L (39-117); Anion Gap 21 (12-20); Aspartate Amino Transferase 98 U/L (5-37); Bilirubin Total 2.5 mg/dL (0.0-1.0); Blood Urea Nitrogen 21 mg/dL (9-16); Calcium 8.5 mg/dL (8.4-10.2); Carbon Dioxide 23 mmol/L (22-29); Chloride 86 mmol/L (96-108); Creatinine Clr Calc Pharmacy 114.1; Estimated Glomerular Filt Rate > 60; Glucose Random 113 mg/dL (60-115); Magnesium 2.1 mg/dL (1.6-2.6); Phosphorus 1.5 mg/dL (2.7-4.5); Potassium 3.7 mmol/L (3.3-5.1); Sodium 126 mmol/L (135-145); Total Protein 7.3 g/dL (6.5-8.0)
[2023-02-11] MEDS: KCl 20 mEq in 5% Dex/0.9% Sod 20 MEQ/1,000 ML IV.SOLN 150 MEQ IVCONT (20:46)
--- NOTE | 2023-02-11 21:07 | PC.NURSE ---
Patient alert and oriented x 4. C/O nausea, prn zofran given at 1939. C/O increasing anxiety, PO pheno given early at 2044 per LEARNING COORDINATOR order. Denies any pain or discomfort. Sinus tach on tele hr 115. No respiratory distress noted, on room air- 02 94%. Patient resting comfortably in bed at this time.
[2023-02-11] MEDS: Potassium Phosphate/NS 15 MMOL/250 ML PLAST..BAG 62.5 MMOL IV (21:50)
[2023-02-12] VITALS (14 sets, daily range): BP systolic 95–152; BP diastolic 62–89; PULSE 74–122; RESP 14–20; TEMP 36.1–37.7; O2SAT 92–98; BMI 31.9
[2023-02-12] MEDS: Throat Lozenge, Medicated LOZENGE 1 LOZENGE MUCOUS MEM (00:37)
[2023-02-12] MEDS: Potassium Phosphate/NS 15 MMOL/250 ML PLAST..BAG 62.5 MMOL IV ×2 (02:09→07:45)
[2023-02-12] MEDS: KCl 20 mEq in 5% Dex/0.9% Sod 20 MEQ/1,000 ML IV.SOLN 150 MEQ IVCONT (02:57)
[2023-02-12 05:29] LABS: VBG Base Excess 5.4 mmol/L; VBG HCO3 28 mmol/L (22-26); VBG pCO2 37 mmHg; VBG pH 7.49 (7.32-7.43); VBG pO2 36 mmHg
[2023-02-12 05:36] LABS: Venous Blood Gas Refer to POC result
[2023-02-12 05:49] LABS: MANUAL DIFF FLAG NO
[2023-02-12 05:51] LABS: Basophils Percent Auto 0.5 % (0-2); Eosinophils Absolute Auto 0.1 X10*3/uL (0.0-0.4); Eosinophils Percent Auto 1.2 % (0-4); Hematocrit 32.8 % (42.0-52.0); Hemoglobin 11.8 g/dl (14.0-18.0); Imm Gran Abs Auto 0.03 X10*3/uL (0.00-0.03); Imm Gran Pct Auto 0.3 % (0.0-0.4); Lymphocytes Absolute Auto 1.2 X10*3/uL (1.2-4.9); Lymphocytes Percent Auto 14.1 % (20-40); Mean Corpuscular Hemoglobin 31.2 pg (27.0-33.0); Mean Corpuscular Volume 86.8 fL (80.0-98.0); Mean Platelet Volume 12.1 fL (9.4-12.4); Monocytes Absolute Auto 0.7 X10*3/uL (0.1-1.2); Monocytes Percent Auto 7.9 % (2-11); Neutrophils Absolute Auto 6.6 x10*3/uL (2.0-8.3); Red Blood Count 3.78 X10*6/uL (4.60-5.80); Red Cell Distribution Width 12.7 % (11.0-16.0); White Blood Count 8.6 X10*3/uL (4.8-10.8)
[2023-02-12] MEDS: Pantoprazole Sodium 40 MG/10 ML VIAL IVPUSH ×2 (06:01→17:27)
[2023-02-12 06:09] LABS: Alanine Aminotransferase 74 U/L (0-40); Albumin Level 4.1 g/dL (3.5-5.0); Alkaline Phosphatase 100 U/L (39-117); Anion Gap 17 (12-20); Aspartate Amino Transferase 104 U/L (5-37); Bilirubin Total 2.3 mg/dL (0.0-1.0); Blood Urea Nitrogen 13 mg/dL (9-16); Calcium 8.8 mg/dL (8.4-10.2); Carbon Dioxide 23 mmol/L (22-29); Chloride 94 mmol/L (96-108); Estimated Glomerular Filt Rate > 60; Glucose Random 114 mg/dL (60-115); Magnesium 2.2 mg/dL (1.6-2.6); Phosphorus 1.5 mg/dL (2.7-4.5); Sodium 130 mmol/L (135-145); Total Protein 6.7 g/dL (6.5-8.0)
[2023-02-12 06:13] LABS: Platelet Count 48 X10*3/uL (160-400)
[2023-02-12] MEDS: Thiamine HCL 100 MG in 0.9 % Sodium Chloride 100 ML 202 MG IV (08:51)
[2023-02-12] MEDS: PHENobarbitaL 30 MG TABLET 60 MG PO ×2 (08:51→19:53)
--- NOTE | 2023-02-12 08:58 | P.PNCC_ITS ---
Subjective Subjective Date of Service: 02/12/23 Interval History: 32-year-old recent bingeing alcoholic on vodka and for that and he stopped his naltrexone a few weeks ago and also recently stopped his Wellbutrin and came in early in the withdrawal. Feeling he was withdrawing but he had abdominal complaints like a classic ketoacidotic in this case it is an alcoholic ketoacidosis but is anion gap of 40 has now normalized and his depressed serum bicarb has normalized we did document the presence of beta hydroxybutyrate and urine ketones so all consistent with alcoholic ketoacidosis with all the metabolic issues fully repaired he just remains mildly hypophosphatemic at 1.5 that is being replaced orally and he is able now to start a diet goes all nausea is gone but he did develop thrombocytopenia very abrupt his platelets today are 48,000 I believe the Zofran is probably the greater culprit so I stop the Zofran that simply has to be watched but the initial hyponatremia is improving from 126-130 so I decreased his IV rate started him on a diet and we could start mobilizing and his alcoholic hepatitis is stable in terms of the transaminase level which is modest and his PT INR is still normal so he does not have a high meld score Thus far no withdrawal symptomatology definitely calmer with a diminishing heart rate yesterday in the 120s today's just about 100 and also no complicating fever Critical Care Time (minutes): 35 Physical Exam Vital Signs: Vital Signs: Last Vital Signs Temp 99.4 F 02/12/23 08:00 Pulse 96 02/12/23 08:00 Resp 15 02/12/23 08:00 BP 127/85 02/12/23 08:00 Pulse Ox 94 02/12/23 08:00 O2 Del Method Room Air 02/12/23 08:00 BMI result Body Mass Index 31.9 Stable vital signs with diminishing heart rate no tremor no confusion nonfocal neurologic Normal LV and RV function by bedside echo Clear chest Abdomen benign nontender Objective Data Labs 02/12/23 05:24 02/12/23 05:24 Labs: Laboratory Results - last 24 hr 02/11/23 02/11/23 02/11/23 09:50 09:50 09:53 WBC RBC Hgb Hct MCV MCH MCHC RDW Plt Count MPV Immature Gran % (Auto) Neut % (Auto) Lymph % (Auto) Drew % (Auto) Eos % (Auto) Baso % (Auto) Lymph # (Auto) Drew # (Auto) Eos # (Auto) Baso # (Auto) Abs Immat Gran (auto) Absolute Neuts (auto) Absolute Nucleated RBC Nucleated RBC % (auto) PT INR VBG pH VBG pCO2 VBG pO2 VBG HCO3 VBG O2 Saturation VBG Base Excess Sodium Potassium Chloride Carbon Dioxide Anion Gap BUN Creatinine Estim Creat Clear Calc Estimated GFR Random Glucose Osmolality Lactic Acid F/U @ 2Hr Calcium Phosphorus Magnesium Total Bilirubin AST ALT Alkaline Phosphatase Total Protein Albumin Urine Color Yellow Urine Appearance Clear Urine pH 5.5 Ur Specific [place] 1.020 Urine Protein 30 (1+) H Urine Glucose (UA) Negative Urine Ketones >=160 Urine Blood Negative Urine Nitrite Negative Ur Leukocyte Esterase Negative Urine RBC 3-5 H Urine WBC 0-5 Ur Squamous Epith Cells 3-5 Urine Bacteria None Seen Hyaline Casts >20 Salicylates < 5.0 L Urine Opiates Screen POSITIVE H Urine Fentanyl Screen Not Detected Acetaminophen < 17 Ur Barbiturates Screen POSITIVE H Ur Phencyclidine Scrn Not Detected Ur Amphetamines Screen Not Detected U Benzodiazepines Scrn Not Detected Urine Cocaine Screen Not Detected U Marijuana (THC) Screen Not Detected B-Hydroxybutyrate 02/11/23 02/11/23 02/11/23 09:53 09:53 11:43 WBC RBC Hgb Hct MCV MCH MCHC RDW Plt Count MPV Immature Gran % (Auto) Neut % (Auto) Lymph % (Auto) Drew % (Auto) Eos % (Auto) Baso % (Auto) Lymph # (Auto) Drew # (Auto) Eos # (Auto) Baso # (Auto) Abs Immat Gran (auto) Absolute Neuts (auto) Absolute Nucleated RBC Nucleated RBC % (auto) PT INR VBG pH VBG pCO2 VBG pO2 VBG HCO3 VBG O2 Saturation VBG Base Excess Sodium Potassium Chloride Carbon Dioxide Anion Gap BUN Creatinine Estim Creat Clear Calc Estimated GFR Random Glucose Osmolality 298 Lactic Acid F/U @ 2Hr 1.6 Calcium Phosphorus 2.1 L Magnesium Total Bilirubin AST ALT Alkaline Phosphatase Total Protein Albumin Urine Color Urine Appearance Urine pH Ur Specific [place] Urine Protein Urine Glucose (UA) Urine Ketones Urine Blood Urine Nitrite Ur Leukocyte Esterase Urine RBC Urine WBC Ur Squamous Epith Cells Urine Bacteria Hyaline Casts Salicylates Urine Opiates Screen Urine Fentanyl Screen Acetaminophen Ur Barbiturates Screen Ur Phencyclidine Scrn Ur Amphetamines Screen U Benzodiazepines Scrn Urine Cocaine Screen U Marijuana (THC) Screen B-Hydroxybutyrate 7.60 H 02/11/23 02/11/23 02/11/23 18:00 18:00 18:03 WBC RBC Hgb Hct MCV MCH MCHC RDW Plt Count MPV Immature Gran % (Auto) Neut % (Auto) Lymph % (Auto) Drew % (Auto) Eos % (Auto) Baso % (Auto) Lymph # (Auto) Drew # (Auto) Eos # (Auto) Baso # (Auto) Abs Immat Gran (auto) Absolute Neuts (auto) Absolute Nucleated RBC Nucleated RBC % (auto) PT 13.0 INR 1.1 VBG pH 7.49 H VBG pCO2 37 VBG pO2 83 VBG HCO3 28 H VBG O2 Saturation 99.0 VBG Base Excess 5.1 Sodium 126 L Potassium 3.7 Chloride 86 L Carbon Dioxide 23 Anion Gap 21 H BUN 21 H Creatinine 1.31 Estim Creat Clear Calc 114.1 Estimated GFR > 60 Random Glucose 113 Osmolality Lactic Acid F/U @ 2Hr Calcium 8.5 D Phosphorus 1.5 L Magnesium 2.1 Total Bilirubin 2.5 H AST 98 H ALT 74 H Alkaline Phosphatase 104 Total Protein 7.3 Albumin 4.4 Urine Color Urine Appearance Urine pH Ur Specific [place] Urine Protein Urine Glucose (UA) Urine Ketones Urine Blood Urine Nitrite Ur Leukocyte Esterase Urine RBC Urine WBC Ur Squamous Epith Cells Urine Bacteria Hyaline Casts Salicylates Urine Opiates Screen Urine Fentanyl Screen Acetaminophen Ur Barbiturates Screen Ur Phencyclidine Scrn Ur Amphetamines Screen U Benzodiazepines Scrn Urine Cocaine Screen U Marijuana (THC) Screen B-Hydroxybutyrate 02/12/23 02/12/23 02/12/23 05:20 05:24 05:24 WBC 8.6 RBC 3.78 L D Hgb 11.8 L D Hct 32.8 L D MCV 86.8 MCH 31.2 MCHC 36.0 RDW 12.7 Plt Count 48 L D MPV 12.1 Immature Gran % (Auto) 0.3 Neut % (Auto) 76.0 H Lymph % (Auto) 14.1 L Drew % (Auto) 7.9 Eos % (Auto) 1.2 Baso % (Auto) 0.5 Lymph # (Auto) 1.2 Drew # (Auto) 0.7 Eos # (Auto) 0.1 Baso # (Auto) 0.0 Abs Immat Gran (auto) 0.03 Absolute Neuts (auto) 6.6 Absolute Nucleated RBC 0.000 Nucleated RBC % (auto) 0.0 PT INR VBG pH 7.49 H VBG pCO2 37 VBG pO2 36 VBG HCO3 28 H VBG O2 Saturation 64.0 VBG Base Excess 5.4 Sodium 130 L Potassium 4.0 Chloride 94 L Carbon Dioxide 23 Anion Gap 17 BUN 13 Creatinine 1.04 Estim Creat Clear Calc 146.0 Estimated GFR > 60 Random Glucose 114 Osmolality Lactic Acid F/U @ 2Hr Calcium 8.8 Phosphorus 1.5 L Magnesium 2.2 Total Bilirubin 2.3 H AST 104 H ALT 74 H Alkaline Phosphatase 100 Total Protein 6.7 Albumin 4.1 Urine Color Urine Appearance Urine pH Ur Specific [place] Urine Protein Urine Glucose (UA) Urine Ketones Urine Blood Urine Nitrite Ur Leukocyte Esterase Urine RBC Urine WBC Ur Squamous Epith Cells Urine Bacteria Hyaline Casts Salicylates Urine Opiates Screen Urine Fentanyl Screen Acetaminophen Ur Barbiturates Screen Ur Phencyclidine Scrn Ur Amphetamines Screen U Benzodiazepines Scrn Urine Cocaine Screen U Marijuana (THC) Screen B-Hydroxybutyrate Progress Note: A&P Assessment and plan (1) Thrombocytopenia: Status: Acute (2) Hyponatremia: Status: Acute (3) Hypophosphatemia: Status: Acute (4) Alcoholic hepatitis without ascites: Status: Acute (5) Alcohol withdrawal: Status: Acute (6) TIFFANIE (acute kidney injury): Status: Acute (7) Alcoholic ketoacidosis: Status: Acute Plan So his alcoholic ketoacidosis has resolved and I am replacing his mild hypophosphatemia initiating a diet and he has no further signs of withdrawal and his hyponatremia is resolving with a sodium now up to 130 and the plan therefore is to send him to a step-down area and he wishes before discharge psych consult to help him with his addiction habits Quality Stroke Does the patient have a stroke diagnosis?: No VTE Prior VTE?: No VTE Risk Level:: Medical - moderate - high VTE Device Contraindication: N/A - Device Ordered VTE Drug Contraindication: N/A - Med Ordered
[2023-02-12] MEDS: KCl 20 mEq in 5% Dex/0.9% Sod 20 MEQ/1,000 ML IV.SOLN 100 MEQ IVCONT ×2 (11:13→19:53)
--- NOTE | 2023-02-12 13:43 | MHC.CM.PN ---
Addendum entered by Charissa Ann RN 02/12/23 14:02: PT VERIFIES COVID VACC X2, PCP IS ALLA BRIONES AT HAS COMPLETED A HCP NAMING HIS LAWSON [facility]ERSEN [phone] HIS [facility] AND NO ALTERNATE CHOSEN, PT PROVIDED W/EDUCATIONAL INFO ORGINAL AND 2 COPIES, COP[facility] AND PLACED IN CHART. 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 ANTIC D/C HOME NO SERVICES ONCE MEDICALLY CLEARED.
[2023-02-12] MEDS: Calcium Carbonate 750 MG TAB.CHEW PO (15:22)
[2023-02-12] MEDS: ondansetron HCL 4 MG/2 ML VIAL IVPUSH (15:23)
[2023-02-12] MEDS: cloNIDine HCL 0.2 MG TABLET PO (20:53)
[2023-02-12] MEDS: Mirtazapine 15 MG TABLET PO (20:53)
[2023-02-12] MEDS: buPROPion HCl XL 300 MG TAB.ER.24H PO (20:53)
[2023-02-12] MEDS: Magnesium Hydrox/Alum Hydrox 30 ML ORAL.SUSP PO (20:54)
[2023-02-13 00:11] VITALS: BP 130/70; PULSE 88; RESP 16; TEMP 36.5; O2SAT 98
[2023-02-13] MEDS: Pantoprazole Sodium 40 MG/10 ML VIAL IVPUSH ×2 (05:31→16:09)
[2023-02-13] MEDS: KCl 20 mEq in 5% Dex/0.9% Sod 20 MEQ/1,000 ML IV.SOLN 100 MEQ IVCONT ×2 (05:31→16:09)
[2023-02-13 05:34] LABS: Acetone 21 mg/dL (NONE DETECTED); Analysis performed on: WHOLE BLOOD; Ethyl Alcohol g/dL (%) NONE DETECTED g/dL(%) (NONE DETECTED); Ethyl Alcohol mg/dL NONE DETECTED (NONE DETECTED); Isopropanol NONE DETECTED (NONE DETECTED)
[2023-02-13 07:22] VITALS: BP 142/87; PULSE 94; RESP 18; TEMP 36.7; O2SAT 96
[2023-02-13] MEDS: PHENobarbitaL 30 MG TABLET 60 MG PO (08:10)
[2023-02-13] MEDS: buPROPion HCl XL 300 MG TAB.ER.24H PO (08:11)
[2023-02-13] MEDS: cloNIDine HCL 0.2 MG TABLET PO ×2 (08:11→18:31)
[2023-02-13] MEDS: Folic Acid 1 MG TABLET PO (08:11)
[2023-02-13] MEDS: Calcium Carbonate 750 MG TAB.CHEW PO ×2 (08:11→20:32)
[2023-02-13] MEDS: lisinopriL 10 MG TABLET PO (08:11)
[2023-02-13] MEDS: Multivitamin TABLET 1 TAB PO (08:11)
[2023-02-13] MEDS: Thiamine HCL 100 MG TABLET PO (08:11)
[2023-02-13 08:32] LABS: MANUAL DIFF FLAG NO
[2023-02-13 08:34] LABS: Basophils Absolute Auto 0.1 X10*3/uL (0.0-0.2); Basophils Percent Auto 0.8 % (0-2); Eosinophils Absolute Auto 0.1 X10*3/uL (0.0-0.4); Eosinophils Percent Auto 1.9 % (0-4); Hematocrit 31.6 % (42.0-52.0); Hemoglobin 11.2 g/dl (14.0-18.0); Imm Gran Abs Auto 0.02 X10*3/uL (0.00-0.03); Imm Gran Pct Auto 0.3 % (0.0-0.4); Lymphocytes Absolute Auto 1.3 X10*3/uL (1.2-4.9); Lymphocytes Percent Auto 20.6 % (20-40); Mean Corpuscular HGB Conc 35.4 g/dl (31.0-36.0); Mean Corpuscular Hemoglobin 31.5 pg (27.0-33.0); Mean Platelet Volume 12.4 fL (9.4-12.4); Monocytes Absolute Auto 0.6 X10*3/uL (0.1-1.2); Monocytes Percent Auto 9.3 % (2-11); Neutrophils Absolute Auto 4.3 x10*3/uL (2.0-8.3); Neutrophils Percent Auto 67.1 % (45-73); Red Blood Count 3.55 X10*6/uL (4.60-5.80); Red Cell Distribution Width 12.9 % (11.0-16.0); White Blood Count 6.4 X10*3/uL (4.8-10.8)
[2023-02-13 08:35] LABS: Platelet Count 51 X10*3/uL (160-400)
[2023-02-13 08:53] LABS: Anion Gap 12 (12-20); Blood Urea Nitrogen 5 mg/dL (9-16); Calcium 9.5 mg/dL (8.4-10.2); Carbon Dioxide 26 mmol/L (22-29); Chloride 100 mmol/L (96-108); Creatinine Clr Calc Pharmacy 199.8; Estimated Glomerular Filt Rate > 60; Glucose Random 113 mg/dL (60-115); Potassium 3.8 mmol/L (3.3-5.1); Sodium 134 mmol/L (135-145)
[2023-02-13] MEDS: Sucralfate Oral Suspension 1 GM/10 ML ORAL.SUSP PO ×3 (11:17→20:31)
[2023-02-13] MEDS: Throat Lozenge, Medicated LOZENGE 1 LOZENGE MUCOUS MEM (11:23)
--- NOTE | 2023-02-13 12:02 | P.PNIM_ITS ---
Subjective Subjective Date of Service: 02/13/23 Interval History: Seen and evaluated this morning denies fever or chills reporting mild withdrawal symptoms and feeling generally weak No reported overnight events Review of Systems Review of Systems: Yes all other systems are reviewed and are negative Physical Exam Vital Signs: Vital Signs: Last Vital Signs Temp 98.1 F 02/13/23 07:22 Pulse 94 02/13/23 07:22 Resp 18 02/13/23 07:22 BP 142/87 H 02/13/23 07:22 Pulse Ox 96 02/13/23 07:22 O2 Del Method Room Air 02/13/23 07:22 BMI result Body Mass Index 31.9 Const: Other: Constitutional : Awake, interactive, in mild distress but overall comfortable Neck : Normal inspection, Supple Cardiovascular : RRR, no JVP, no lower extremity edema Respiratory : good bilateral air entry, no crackles, wheezes or rhonchi Gastrointestinal: soft, lax, Normal bowel sounds, Non tender Skin : Warm, Dry Neurological : Alert & oriented x3, No focal deficit Objective Data Active Medications Acamprosate (Acamprosate Calcium 333 Mg Tablet.) 666 mg PO TID [facility] Last Admin: 02/13/23 08:11 Dose: Not Given Documented By: KATLIN Non-Admin Reason: Patient Refused Benzocaine (Throat Lozenge, Medicated Lozenge) 1 lozenge MUCOUS MEM Q2H PRN PRN Reason: Sore Throat Last Admin: 02/13/23 11:23 Dose: 1 lozenge Documented By: KATLIN Bupropion HCl (Bupropion Hcl Xl 300 Mg Tab.Er.24h) 300 mg PO DAILY [facility] Last Admin: 02/13/23 08:11 Dose: 300 mg Documented By: KATLIN Calcium Carbonate (Calcium Carbonate 750 Mg Tab.Chew) 750 mg PO Q4H PRN PRN Reason: heartburn Last Admin: 02/13/23 08:11 Dose: 750 mg Documented By: KATLIN Clonidine HCl (Clonidine Hcl 0.2 Mg Tablet) 0.2 mg PO Q8H PRN; Protocol PRN Reason: Anxiety Last Admin: 02/13/23 08:11 Dose: 0.2 mg Documented By: KATLIN Folic Acid (Folic Acid 1 Mg Tablet) 1 mg PO DAILY [facility] Last Admin: 02/13/23 08:11 Dose: 1 mg Documented By: KATLIN Potassium Chloride/Dextrose/Sod Cl (Kcl 20 Meq In 5% Dex/0.9% Sod) 20 meq in 1,000 mls @ 100 mls/hr IVCONT .Q10H [facility] Last Admin: 02/13/23 05:31 Dose: 100 mls/hr Documented By: LALIT Lisinopril (Lisinopril 10 Mg Tablet) 10 mg PO DAILY [facility]; Protocol Last Admin: 02/13/23 08:11 Dose: 10 mg Documented By: KATLIN Mirtazapine (Mirtazapine 15 Mg Tablet) 15 mg PO BEDTIME [facility] Last Admin: 02/12/23 20:53 Dose: 15 mg Documented By: LALIT Multivitamins/Vitamin C (Multivitamin Tablet) 1 tab PO DAILY [facility] Last Admin: 02/13/23 08:11 Dose: 1 tab Documented By: KATLIN Ondansetron HCl (Ondansetron Hcl 4 Mg/2 Ml Vial) 4 mg IVPUSH Q8H PRN PRN Reason: Nausea and Vomiting Last Admin: 02/12/23 15:23 Dose: 4 mg Documented By: KATLIN Pantoprazole Sodium (Pantoprazole Sodium 40 Mg/10 Ml Vial) 40 mg IVPUSH BID@0630,1630 [facility] Last Admin: 02/13/23 05:31 Dose: 40 mg Documented By: LALIT Pharmacy Consult (Consult Rx Etoh Phenob Im/Po) 1 each MISCELLANE ONCE PRN; Protocol PRN Reason: Consult order Phenobarbital (Phenobarbital 30 Mg Tablet) 30 mg PO BID [facility]; Protocol Stop: 02/15/23 09:01 Phenobarbital (Phenobarbital 30 Mg Tablet) 30 mg PO DAILY [facility]; Protocol Stop: 02/17/23 09:01 Sucralfate (Sucralfate Oral Suspension 1 Gm/10 Ml Oral.Susp) 1 gm PO QIDACHS [facility] Last Admin: 02/13/23 11:17 Dose: 1 gm Documented By: KATLIN Thiamine HCl (Thiamine Hcl 100 Mg Tablet) 100 mg PO DAILY [facility] Last Admin: 02/13/23 08:11 Dose: 100 mg Documented By: KATLIN Labs 02/13/23 08:20 02/13/23 08:20 Labs: Laboratory Results - last 24 hr 02/11/23 02/13/23 02/13/23 11:43 08:20 08:20 MCV 89.0 MCH 31.5 MCHC 35.4 RDW 12.9 Plt Count 51 L MPV 12.4 Immature Gran % (Auto) 0.3 Neut % (Auto) 67.1 Lymph % (Auto) 20.6 Payne % (Auto) 9.3 Eos % (Auto) 1.9 Baso % (Auto) 0.8 Lymph # (Auto) 1.3 Payne # (Auto) 0.6 Eos # (Auto) 0.1 Baso # (Auto) 0.1 Abs Immat Gran (auto) 0.02 Absolute Neuts (auto) 4.3 Absolute Nucleated RBC 0.000 Nucleated RBC % (auto) 0.0 Anion Gap 12 Estim Creat Clear Calc 199.8 Estimated GFR > 60 Random Glucose 113 Calcium 9.5 D Volat Analys Perform On WHOLE BLOOD Ethyl Alcohol mg/dL NONE DETECTED Ethyl Alcohol g/dL NONE DETECTED Isopropyl Alc, Quant NONE DETECTED Acetone Level 21 H Microbiology Microbiology Results: Microbiology 02/11/23 07:57 Blood Culture - Preliminary Blood - Venous No growth after 48 hours. 02/11/23 07:38 Blood Culture - Preliminary Blood - Venous No growth after 48 hours. Assessment and Plan (1) Thrombocytopenia: Status: Acute (2) Hyponatremia: Status: Acute (3) Hypophosphatemia: Status: Acute (4) Alcoholic hepatitis without ascites: Status: Acute (5) Alcohol withdrawal: Status: Acute (6) TIFFANIE (acute kidney injury): Status: Acute (7) Alcoholic ketoacidosis: Status: Acute Plan 32-year-old recent bingeing alcoholic on vodka and for that and he stopped his naltrexone and Wellbutrin a few weeks ago presented with severe withdrawal and alcoholic ketoacidosis requiring ICU admission.? Alcoholic ketoacidosis in Alcohol abuse and withdrawal ketosis resolved withdrawal controlled Continue PHenobarbital Thiamin and folate Bupropion restarted consider Naltrexone, addiction team consult Nausea, heartburn likely 2/2 alcoholic gastritis PPI, add carafate advance diet as tolerated Hypophosphatemia replacement given Hyponatremia 2/2 dehydration Improved to baseline follow BMP TIFFANIE on presentation, resolved Thrombocytopenia 2/2 alcoholosim, on presentation it was mistakenly normal because of dehydration follow as OP Alcoholic hepatitis LFT trending down PT\INR normal Mood disorder psych consult DVT Ppx early ambulation The patient will need overnight hospital stay for alcohol withdrawal pending clinical improvement and safe discharge plan. Time Spent With Patient Time: Total time managing care of this patient today ____ minutes. Quality Stroke Does the patient have a stroke diagnosis?: No VTE Prior VTE?: No VTE Risk Level:: Medical - moderate - high VTE Device Contraindication: N/A - Device Ordered VTE Drug Contraindication: N/A - Med Ordered
--- NOTE | 2023-02-13 12:26 | MHC.RECOVRN ---
Met with pt in 378 after consult placed to Addiction Medicine for alcohol use. Pt sitting in bed, awake, alert, easily engages in conversation, flat affect. Pt reports nothing has ever happened this bad before. Pt reports having a manageable relationship with alcohol up until 3 years ago. 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 Pt states I just turned to the bottle. Pt reports most recent recurrence was over span of 3 days and had consumed 50+ 100 proof vodka nips. Pt reports he had been vomiting blood and had excruciating abdominal pain and decided to come to the hospital. Pt subsequently admitted for ETOH ketoacidosis. 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 Pt has utilized naltrexone and Vivitrol x a few months with positive effect. Pt is interested in continuing inpatient treatment for AUD, preferably at a facility other than [facility]. Pt provided with resources as well as contact for [facility]. Pt awaiting to hear if [facility] accepts [facility]. 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 Pt has supportive . Does not find AA helpful. Pt denies family hx AUD. Plan to discuss reinitiation of naltrexone with Nati Torres APRN. Pt to follow up with facilities to secure further tx. Once pt completes inpatient tx, plan to follow up with [facility] to continue outpatient and [facility] tx. T/w available as needed.
--- NOTE | 2023-02-13 13:08 | PM.EVENT ---
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 Please see note dated 02/13/23 Will continue to follow during admission, naltrexone to be started after detox complete Time Spent With Patient Time: Total time managing care of this patient today ____ minutes.
[2023-02-13 15:32] VITALS: BP 144/79; PULSE 104; RESP 20; TEMP 36.6; O2SAT 99
[2023-02-13 20:00] VITALS: BP 128/78; PULSE 99; RESP 20; TEMP 36.6; O2SAT 98
[2023-02-13] MEDS: Mirtazapine 15 MG TABLET PO (20:31)
[2023-02-13] MEDS: ondansetron HCL 4 MG/2 ML VIAL IVPUSH (20:32)
[2023-02-13] MEDS: PHENobarbitaL 30 MG TABLET PO (20:32)
[2023-02-14 03:52] VITALS: BP 133/73; PULSE 92; RESP 16; TEMP 36.8; O2SAT 97
[2023-02-14] MEDS: Calcium Carbonate 750 MG TAB.CHEW PO ×3 (03:57→22:22)
--- NOTE | 2023-02-14 03:59 | MHC.PIE ---
p; pt c/o heartburn asking for Tums x2 i; dr lockett notified; ok to give Tums x2 as extra dose e; will cont to marie
[2023-02-14] MEDS: Pantoprazole Sodium 40 MG/10 ML VIAL IVPUSH (06:22)
[2023-02-14] MEDS: Sucralfate Oral Suspension 1 GM/10 ML ORAL.SUSP PO ×4 (06:22→22:23)
[2023-02-14 07:08] LABS: Hematocrit 30.7 % (42.0-52.0); Hemoglobin 10.6 g/dl (14.0-18.0); Mean Corpuscular HGB Conc 34.5 g/dl (31.0-36.0); Mean Corpuscular Hemoglobin 30.8 pg (27.0-33.0); Mean Corpuscular Volume 89.2 fL (80.0-98.0); Mean Platelet Volume 13.4 fL (9.4-12.4); Red Blood Count 3.44 X10*6/uL (4.60-5.80); Red Cell Distribution Width 13.2 % (11.0-16.0); White Blood Count 4.9 X10*3/uL (4.8-10.8)
[2023-02-14 07:15] LABS: Platelet Count 42 X10*3/uL (160-400)
[2023-02-14 07:17] LABS: Anion Gap 11 (12-20); Blood Urea Nitrogen 5 mg/dL (9-16); Calcium 9.5 mg/dL (8.4-10.2); Carbon Dioxide 27 mmol/L (22-29); Chloride 102 mmol/L (96-108); Creatinine Clr Calc Pharmacy 202.5; Estimated Glomerular Filt Rate > 60; Glucose Random 101 mg/dL (60-115); Potassium 3.6 mmol/L (3.3-5.1); Sodium 136 mmol/L (135-145)
[2023-02-14 07:22] VITALS: BP 150/90; PULSE 88; RESP 18; TEMP 36.1; O2SAT 98
[2023-02-14] MEDS: lisinopriL 10 MG TABLET PO (09:04)
[2023-02-14] MEDS: buPROPion HCl XL 300 MG TAB.ER.24H PO (09:04)
[2023-02-14] MEDS: PHENobarbitaL 30 MG TABLET PO ×2 (09:04→22:23)
[2023-02-14] MEDS: Folic Acid 1 MG TABLET PO (09:04)
[2023-02-14] MEDS: Thiamine HCL 100 MG TABLET PO (09:05)
[2023-02-14] MEDS: Multivitamin TABLET 1 TAB PO (09:05)
--- NOTE | 2023-02-14 09:36 | MHC.RECOVRN ---
This automobile and property underwriter met with patient after receiving phone call from Carmina at [facility]. Carmina requesting to speak with patient to complete phone intake/assessment for ETOH treatment. This automobile and property underwriter gave contact information and clear instruction to pt to follow up with Carmina at [facility]. Pt states is only interested in [facility], as they have a first officer and flight instructor program . This automobile and property underwriter encouraged pt to call Carmina at [facility] to inquire about first officer and flight instructor program and/or other questions related to inpatient level of tx. Pt agreeable. Pt requesting psychiatric evaluation and proof of PTSD in order to have health converage continued through job. This automobile and property underwriter reviewed role of Nati Torres NP and Addiction/Recovery Team. Pt requesting psychiatric evaluation.
--- NOTE | 2023-02-14 10:36 | MHC.RECOVRN ---
Met with pt in 378 to follow up and provide clarification. Pt had been interested in [facility] bottle feeder program, however, that facility does not accept pts health insurance. Pt is interested in co-occurring program at [facility], encouraged to follow up with Carmina, as previously discussed with RSRNYahaira. Pt reports needing a psych consult in order to provide documentation for work regarding PTSD diagnosis. Pt does have psych consult ordered from 02/12 for mood disorder. Pt plans to follow up with Carmina once psych consult is complete. Discussed with pts RN.
[2023-02-14] MEDS: cloNIDine HCL 0.2 MG TABLET PO ×2 (12:02→22:23)
--- NOTE | 2023-02-14 12:09 | HO.PM.IMPN ---
Subjective Subjective Date of Service: 02/14/23 Interval History: Seen and evaluated this morning denies fever or chills still reporting mild withdrawal symptoms and feeling generally weak No reported overnight events Review of Systems Review of Systems: Yes all other systems are reviewed and are negative Physical Exam Vital Signs: Vital Signs: Last Vital Signs Temp 97 F 02/14/23 07:22 Pulse 88 02/14/23 07:22 Resp 18 02/14/23 07:22 BP 150/90 H 02/14/23 07:22 Pulse Ox 98 02/14/23 07:22 O2 Del Method Room Air 02/14/23 07:22 BMI result Body Mass Index 31.9 Const: Other: Constitutional : Awake, interactive, in mild distress but overall comfortable Neck : Normal inspection, Supple Cardiovascular : RRR, no JVP, no lower extremity edema Respiratory : good bilateral air entry, no crackles, wheezes or rhonchi Gastrointestinal: soft, lax, Normal bowel sounds, Non tender Skin : Warm, Dry Neurological : Alert & oriented x3, No focal deficit Objective Data Active Medications Acamprosate (Acamprosate Calcium 333 Mg Tablet.) 666 mg PO TID [facility] Last Admin: 02/14/23 09:13 Dose: Not Given Documented By: ABDIRASHID Non-Admin Reason: Patient Refused Benzocaine (Throat Lozenge, Medicated Lozenge) 1 lozenge MUCOUS MEM Q2H PRN PRN Reason: Sore Throat Last Admin: 02/13/23 11:23 Dose: 1 lozenge Documented By: KATLIN Bupropion HCl (Bupropion Hcl Xl 300 Mg Tab.Er.24h) 300 mg PO DAILY [facility] Last Admin: 02/14/23 09:04 Dose: 300 mg Documented By: ABDIRASHID Calcium Carbonate (Calcium Carbonate 750 Mg Tab.Chew) 750 mg PO Q4H PRN PRN Reason: heartburn Last Admin: 02/14/23 03:58 Dose: 750 mg Documented By: LALIT Comments: extra dose, md chaudhary Clonidine HCl (Clonidine Hcl 0.2 Mg Tablet) 0.2 mg PO Q8H PRN; Protocol PRN Reason: Anxiety Last Admin: 02/14/23 12:02 Dose: 0.2 mg Documented By: ABDIRASHID Folic Acid (Folic Acid 1 Mg Tablet) 1 mg PO DAILY [facility] Last Admin: 02/14/23 09:04 Dose: 1 mg Documented By: ABDIRASHID Lisinopril (Lisinopril 10 Mg Tablet) 10 mg PO DAILY [facility]; Protocol Last Admin: 02/14/23 09:04 Dose: 10 mg Documented By: ABDIRASHID Mirtazapine (Mirtazapine 15 Mg Tablet) 15 mg PO BEDTIME [facility] Last Admin: 02/13/23 20:31 Dose: 15 mg Documented By: LALIT Multivitamins/Vitamin C (Multivitamin Tablet) 1 tab PO DAILY [facility] Last Admin: 02/14/23 09:05 Dose: 1 tab Documented By: ABDIRASHID Ondansetron HCl (Ondansetron Hcl 4 Mg/2 Ml Vial) 4 mg IVPUSH Q8H PRN PRN Reason: Nausea and Vomiting Last Admin: 02/13/23 20:32 Dose: 4 mg Documented By: LALIT Pantoprazole Sodium (Pantoprazole Sodium 40 Mg/10 Ml Vial) 40 mg IVPUSH BID@0630,1630 [facility] Last Admin: 02/14/23 06:22 Dose: 40 mg Documented By: LALIT Pharmacy Consult (Consult Rx Etoh Phenob Im/Po) 1 each MISCELLANE ONCE PRN; Protocol PRN Reason: Consult order Phenobarbital (Phenobarbital 30 Mg Tablet) 30 mg PO BID [facility]; Protocol Stop: 02/15/23 09:01 Last Admin: 02/14/23 09:04 Dose: 30 mg Documented By: ABDIRASHID Phenobarbital (Phenobarbital 30 Mg Tablet) 30 mg PO DAILY [facility]; Protocol Stop: 02/17/23 09:01 Sucralfate (Sucralfate Oral Suspension 1 Gm/10 Ml Oral.Susp) 1 gm PO QIDACHS [facility] Last Admin: 02/14/23 11:58 Dose: 1 gm Documented By: ABDIRASHID Thiamine HCl (Thiamine Hcl 100 Mg Tablet) 100 mg PO DAILY [facility] Last Admin: 02/14/23 09:05 Dose: 100 mg Documented By: ABDIRASHID Labs 02/14/23 06:22 02/14/23 06:22 Labs: Laboratory Results - last 24 hr 02/14/23 02/14/23 06:22 06:22 MCV 89.2 MCH 30.8 MCHC 34.5 RDW 13.2 Plt Count 42 L MPV 13.4 H Absolute Nucleated RBC 0.000 Nucleated RBC % (auto) 0.0 Anion Gap 11 L Estim Creat Clear Calc 202.5 Estimated GFR > 60 Random Glucose 101 Calcium 9.5 Microbiology Microbiology Results: Microbiology 02/11/23 07:57 Blood Culture - Preliminary Blood - Venous No growth after 48 hours. 02/11/23 07:38 Blood Culture - Preliminary Blood - Venous No growth after 48 hours. Assessment and Plan (1) Thrombocytopenia: Status: Acute (2) Hyponatremia: Status: Acute (3) Hypophosphatemia: Status: Acute (4) Alcoholic hepatitis without ascites: Status: Acute (5) Alcohol withdrawal: Status: Acute Plan 32-year-old recent bingeing alcoholic on vodka and for that and he stopped his naltrexone and Wellbutrin a few weeks ago presented with severe withdrawal and alcoholic ketoacidosis requiring ICU admission.? Alcoholic ketoacidosis in Alcohol abuse and withdrawal ketosis resolved withdrawal controlled Continue PHenobarbital, add extra dose IM prn for worsening symptoms Thiamin and folate Bupropion restarted Start Naltrexone once out of withdrawal, addiction team consult Nausea, heartburn likely 2/2 alcoholic gastritis PPI, add carafate advance diet as tolerated Hypophosphatemia replacement given Hyponatremia 2/2 dehydration Improved to normal follow BMP TIFFANIE on presentation, resolved Thrombocytopenia 2/2 alcoholosim, on presentation it was mistakenly normal because of dehydration follow as OP Alcoholic hepatitis LFT trending down PT\INR normal Mood disorder psych consult DVT Ppx early ambulation The patient will need overnight hospital stay for alcohol withdrawal pending clinical improvement and safe discharge plan. Time Spent With Patient Time: Total time managing care of this patient today ____ minutes. Quality Stroke Does the patient have a stroke diagnosis?: No VTE Prior VTE?: No VTE Risk Level:: Medical - moderate - high VTE Device Contraindication: N/A - Device Ordered VTE Drug Contraindication: N/A - Med Ordered
--- NOTE | 2023-02-14 12:33 | MHC.RECOVRN ---
Pt spoke with [facility]. Plan to dc tomorrow, go home and pack a bag, and father will transport to [facility].
[2023-02-14] MEDS: PHENobarbitaL sodium 130 MG/ML VIAL IM (13:46)
--- NOTE | 2023-02-14 13:52 | MHC.CM.PN ---
PLAN IS DC TOMORROW (02/15/23)
[2023-02-14 13:54] VITALS: BP 134/64; PULSE 92; RESP 18; TEMP 36.6; O2SAT 98
[2023-02-14 15:31] VITALS: BP 121/63; PULSE 109; RESP 20; TEMP 36.7; O2SAT 97
[2023-02-14 19:19] VITALS: BP 143/78; PULSE 92; RESP 18; TEMP 37; O2SAT 98
[2023-02-14] MEDS: Mirtazapine 15 MG TABLET PO (22:22)
[2023-02-15 07:00] VITALS: BP 117/64; PULSE 80; RESP 18; TEMP 36.6; O2SAT 99
[2023-02-15] MEDS: Sucralfate Oral Suspension 1 GM/10 ML ORAL.SUSP PO ×2 (08:08→12:45)
[2023-02-15] MEDS: buPROPion HCl XL 300 MG TAB.ER.24H PO (08:08)
[2023-02-15] MEDS: Thiamine HCL 100 MG TABLET PO (08:08)
[2023-02-15] MEDS: Multivitamin TABLET 1 TAB PO (08:09)
[2023-02-15] MEDS: lisinopriL 10 MG TABLET PO (08:09)
[2023-02-15] MEDS: PHENobarbitaL 30 MG TABLET PO (08:09)
[2023-02-15] MEDS: Folic Acid 1 MG TABLET PO (08:09)
[2023-02-15 09:23] LABS: Hematocrit 31.8 % (42.0-52.0); Hemoglobin 11.2 g/dl (14.0-18.0)
[2023-02-15 09:40] LABS: Platelet Count 50 X10*3/uL (160-400)
--- NOTE | 2023-02-15 11:18 | MHC.CM.PN ---
PATIENT IS DC. PLAN HAS BEEN TO RETURN HOME TO [employer]ATH[employer] BELONGINGS AND BE TRANSPORTED TO [facility] (PER SECURITY OPERATIONS MANAGER NOTE) RN AWARE OF DC
--- NOTE | 2023-02-15 11:38 | MHC.RECOVRN ---
This bond underwriter in touch with Ra Montoya, referral faxed and emailed x's 2 with updated progress note and labs, received confirmation from Ra Montoya that updated referral received, Ra Montoya directed to contact pt directly in regard to admission time as pt discharging today from [facility].
--- NOTE | 2023-02-15 12:00 | MHC.CM.PN ---
PATIENT ASKS THAT HIS DC PACKET, LABS, AND PROGRESS NOTES BE FAXED OT NAOMIE AT [facility] ([phone]) ONCE DC SUMMARY IS IN, IT WILL BE FAXED
--- NOTE | 2023-02-15 12:58 | P.DS_ITS ---
DS: Providers Provider Date of Service: 02/15/23 Date of admission: 02/11/23 11:56 Date of discharge: 02/15/23 Primary care physician: MARIA ESTHER Miller Consults: 02/12/23 14:36 Addiction Medicine Routine Consulting Provider: Addiction Covering Reason for consultation: alcohol abuse/addiction Has provider been notified: No 02/12/23 20:40 Consult to Psychiatry Routine Consulting Provider: Psych Covering Reason for consultation: mood disorder Attending physician on discharge: Geremias Palm Discharging clinician: Geremias Palm DS: Diagnosis Discharge Diagnosis (1) Thrombocytopenia: Status: Acute (2) Hyponatremia: Status: Acute (3) Hypophosphatemia: Status: Acute (4) Alcoholic hepatitis without ascites: Status: Acute (5) Alcohol withdrawal: Status: Acute DS: Summary Hospital Course Hospital Course: 32-year-old male who is a chronic binge alcoholic who just went on a recent binge for the last 3 days with very high volume of vodka stopped the the night before arriving here and and still has an alcohol level of 11 but he feels he is having some withdrawal issues he senses palpitations and he is in sinus tach no tremors he claims that he is having some visual hallucinations but he is perfectly oriented nonfocal neurologically and he is afebrile but feels better very sick with mid abdominal pain but a benign abdominal exam Bedside echo shows class 1 LV and RV function CT scan of the abdomen pelvis shows normal pancreas liver consistent with steatosis and chest the CT of course is clean and head CT scan is clean By laboratory he has evidence of metabolic acidosis with a profound anion gap of about 40 with a very trivial level of a lactate so clearly there is another metabolic acid and because the syndrome is so mimicked by salicylate toxicity I sent off that level sent off acetaminophen to get a sense as to whether not this is Tong glutamic acid and of course will working him up for sepsis with volume replacement by protocol as well as culturing him but I do not believe that that is the case ultimately from what I am seeing I believe this is going to be alcoholic ketoacidosis so will send off a beta hydroxybutyrate and and urine for ketones and I believe he also has with the elevated transaminases alcoholic hepatitis but he has a normal PT INR and he has modest transaminase elevation so I do not think we are going to have a high meld score. Hospital course: Patient was admitted for alcohol withdrawal with ketoacidosis -patient was admitted to ICU, received phenobarb protocol-seems to be improved significantly. Patient has possible mild gastritis for which we started on omeprazole. In addition patient had TIFFANIE improved with hydration, hyponatremia also improved with hydration. Patient also had mild hypophosphatemia possible related to decreased p.o. intake and alcohol use. Added replacement. Patient has mild elevated LFTs and also thrombocytopenia possibly related to alcohol use: Repeated LFTs and platelet seems similar range, patient denies any bruising or any bleeding. Patient was also seen by addiction-patient will be going to the outpatient program to [facility]. Monitor CBC and BMP,phosphorus levels outpatient in 1 week. follow up with pcp. plan: Encouraged for hydration, strongly advised to abstain from alcohol. Monitor CBC for thrombocytopenia and anemia. Monitor BMP and LFTs-for elevated LFT levels, also monitor phosphorous level since was low. Further management outpatient with PCP. Time Spent with Patient Time attestation: Total time managing care of this patient today ____ minutes. Discharge coordination time: Greater than 30 minutes Quality: Safe Use of Opioids Does Pt have an Active Cancer Diagnosis on the Problem List?: No Quality: Stroke Does the patient have a stroke diagnosis?: No Physical Exam Vital Signs: Vital Signs: Last Vital Signs Temp 97.9 F 02/15/23 07:00 Pulse 80 02/15/23 07:00 Resp 18 02/15/23 07:00 BP 117/64 02/15/23 07:00 Pulse Ox 99 02/15/23 07:00 O2 Del Method Room Air 02/15/23 07:00 BMI result Body Mass Index 31.9 Appearance: Alert.? Oriented X3.? not in distress.? cvs: rrr, [id number] , no murmur res: clear to auscultation ,no rhonchii or wheezing abd: no rebound or guarding ,nt, bs present. ext pulses present , no cyanosis . neuro: axo3 , nonfocal. DS: Data Data Completed and Pending Labs on day of discharge: Laboratory Results - last 24 hr 02/15/23 08:46 Hgb 11.2 L Hct 31.8 L Plt Count 50 L Preliminary micro results at discharge 02/11/23 07:57 Blood Culture - Preliminary Blood - Venous No growth after 48 hours. 02/11/23 07:38 Blood Culture - Preliminary Blood - Venous No growth after 48 hours. Imaging Chest x-ray: Radiologist's impression: ITS Impressions Abdomen/Pelvis CT 02/11/23 07:25 IMPRESSION: Enlarged fatty liver. Normal-appearing pancreas. Skin thickening and stranding of the subcutaneous fat over the right flank and buttock. Differential would include changes related to trauma cellulitis. Clinical correlation recommended. Fleischner guidelines were followed. Chest CT 02/11/23 07:25 IMPRESSION: Diffuse wall thickening of the esophagus. The esophagus is slightly dilated and fluid-filled. This is a new finding from April 2022 exam. Esophagitis should be considered. Fleischner guidelines were followed. Cervical Spine CT 02/11/23 09:10 IMPRESSION: - No acute intracranial findings. - No acute osseous findings within the cervical spine. Head CT 02/11/23 09:10 IMPRESSION: - No acute intracranial findings. - No acute osseous findings within the cervical spine. Discharge Plan Discharge Anticipated Discharge Date/Time: 02/15/23 11:09 Patient Disposition: Home, Self-Care Discharge Diagnosis: Alcohol withdrawal, electrolytic abnormalities. Referrals: Yrn Bui PA [Primary Care Provider] - 1 Week Discharge Medications: New omeprazole 20 mg capsule,delayed release(DR/EC) 20 mg PO DAILY Qty: 30 0RF potassium, sodium phosphates [Phos-NaK] 280-160-250 mg powder in packet 1 packet PO BID Qty: 10 0RF Continued lisinopril 10 mg tablet 1 tab PO DAILY thiamine HCl (vitamin B1) 100 mg tablet 100 mg PO DAILY folic acid 1 mg tablet 1 mg PO DAILY mirtazapine 15 mg tablet 15 mg PO BEDTIME bupropion HCl 300 mg tablet extended release 24 hr 300 mg PO DAILY acamprosate 333 mg tablet,delayed release (DR/EC) 666 mg PO TID Vivitrol 380 mg suspension,extended rel recon 380 mg IM QMONTH multivitamin with folic acid [Daily-Roma (with folic acid)] 400 mcg tablet 1 tab PO DAILY clonidine HCl 0.2 mg tablet 0.2 mg PO Q8H PRN (Reason: Anxiety) Discharge Orders: Discharge Order (Routine); Ordered 02/15/23 Ordered By: Geremias Palm Diet: Advance to usual diet Activity on Discharge: As tolerated Stand Alone Forms: Patient Portal Discharge page Care Plan Goals: Patient was admitted for alcohol withdrawal with ketoacidosis -patient was admitted to ICU, received phenobarb protocol-seems to be improved significantly. Patient has possible mild gastritis for which we started on omeprazole. In addition patient had a KI improved with hydration, hyponatremia also improved with hydration. Patient also had mild hypophosphatemia possible related to decreased p.o. intake and alcohol use. Added replacement. Patient has mild elevated LFTs and also thrombocytopenia possibly related to alcohol use: Repeated LFTs and platelet seems similar range, patient denies any bruising or any bleeding. Patient was also seen by addiction-patient will be going to the outpatient program to [facility]. Monitor CBC and BMP,phosphorusand Lft's levels outpatient in 1 week. follow up with pcp. Health Concerns: As above. Plan of Treatment: As above. Assessment: As above.
[2023-02-26 09:24] LABS: Methyl Alcohol NONE DETECTED
== END 2023-02-15 13:24 | disposition home or self-care (01) | DRG 422 ==
LOC: HO.ED 09:31 → HO.EDOVER 12:13 → HO.ICU 12:18 → HO.S3 02-12 12:02
PROVIDERS: Emergency Medicine Emergency Medical Services; Physician Assistant; Registered Nurse Community Health; Student in an Organized Health Care Education/Training Program; Admitting Provider Internal Medicine Cardiovascular Disease; Emergency Provider Emergency Medicine; PCP Physician Assistant Medical; Visit Provider Internal Medicine
DX: E87.29 Other acidosis (principal); E86.0 Dehydration; N17.9 Acute kidney failure, unspecified; K29.21 Alcoholic gastritis with bleeding; D69.59 Other secondary thrombocytopenia; K70.10 Alcoholic hepatitis without ascites; F10.239 Alcohol dependence with withdrawal, unspecified; F10.229 Alcohol dependence with intoxication, unspecified; E83.39 Other disorders of phosphorus metabolism; K29.20 Alcoholic gastritis without bleeding; K76.0 Fatty (change of) liver, not elsewhere classified; E87.1 Hypo-osmolality and hyponatremia; Y90.0 Blood alcohol level of less than 20 mg/100 ml; Z91.148 Patient's other noncompliance with medication regimen for other reason; Z79.899 Other long term (current) drug therapy
CPT/HCPCS: 36415; 70450; 71250; 72125; 74176; 80048; 80053; 80143; 80179; 80307; 80320; 81001; 82010; 82803; 83605; 83690; 83735; 83930; 84100; 84484; 85014; 85018; 85025; 85027; 85049; 85610; 85730; 87040; 93005; 99284; J2060; J2270; J2405; J2560; J3411; J3475; P9047

== ENCOUNTER 2023-06-14 22:03 | Inpatient (IN) | payer OTHER, SELFPAY ==
--- NOTE | 2023-06-14 | ECG_ITS ---
Test Reason : withdrawal Blood Pressure : / mmHG Vent. Rate : 136 BPM Atrial Rate : 136 BPM P-R Int : 152 ms QRS Dur : 094 ms QT Int : 280 ms P-R-T Axes : 029 -39 026 degrees QTc Int : 421 ms Sinus tachycardia Left axis deviation Cannot rule out Anterior infarct , age undetermined Abnormal ECG When compared with ECG of 11-FEB-2023 14:43, No significant change was found Referred By: Generic ED Physician Electronically Signed By:BRYANT GUPTA MD
[2023-06-14 22:06] VITALS: BP 151/103; PULSE 135; RESP 20; TEMP 36.9; O2SAT 95; BMI 29.6
[2023-06-14 22:14] VITALS: BP 157/95; PULSE 134; RESP 25; TEMP 37.3; O2SAT 95
--- NOTE | 2023-06-14 22:19 | MHC.CLN ---
Patient changed over
--- OUTSIDE RECORDS SUMMARY | 2023-06-14 22:19 | XMS_ITS | Continuity of Care Document ---
Author Name Unknown Organization [facility] Angelo chapis Address [address] [place] [address] [address] [place] [address]- Care Team Providers Care Die Finisher Name Role Phone Kerwin Zeng MD Primary Care Physician Encounter [facility] ACCT R [id number] Date(s): 02/19/21 - 04/19/21 [facility] [address] [place] [address]- Attending Physician: Delia FERRER, Fernando Diallo Referring Physician: Kerwin Zeng MD Allergies, Adverse Reactions, Alerts Substance Reaction Severity Status NKA Active Medications amLODIPine 10 mg oral tablet 10 mg, 1, tablet, By Mouth, Daily, # 30 tablet, Refills 0, Maintenance, 02/19/21 11:14:00 EDT, Partial fill upon patient request if the prescription is for a schedule II opioid drug. Start Date: 02/19/21 Status: Ordered Lexapro 20 mg oral tablet 1 tablet = 20 mg, By Mouth, Daily, # 30 tablet, 0 Refills, Maintenance, 02/19/21 11:14:00 EDT, Tablet, Partial fill upon patient request if the prescription is for a schedule II opioid drug. Start Date: 02/19/21 Status: Ordered Problem List Condition Effective Dates Status Health Status Inform ant Anxiety(Confirmed) Active Hypertension(Confirmed) Active Social History Social History Type Response Smoking Status Never smoker; Tobacc o user in household: No entered on: 01/06/17 Sex
--- OUTSIDE RECORDS SUMMARY | 2023-06-14 22:19 | XMS_ITS | Continuity of Care Document ---
Author Name Unknown Organization [facility] Address [address] [place] [address] [address] [place] [address]- Care Team Providers Care Pharmacy Technology Instructor Name Role Phone Yrn Sanchez Primary Care Physician Encounter [facility] Date(s): 04/10/21 - 07/05/21 [facility] [address] [place], [place] [address] Attending Physician: Fernando Lin MD Allergies, Adverse Reactions, Alerts Substance Reaction [...]
--- OUTSIDE RECORDS SUMMARY | 2023-06-14 22:19 | XMS_ITS | Continuity of Care Document ---
Author Name Unknown Organization [facility] Angelo chapis Address [address] [place] [address] [address] [place] [address]- Care Team Providers Care High School Mathematics Teacher Name Role Phone Karri FERRER, Kerwin Choi Primary Care Physician Encounter [facility] Date(s): 02/11/21 - 03/13/21 [facility] [address] [place], [place] [address] Allergies, Adverse Reactions, Alerts Substance Reaction Severity [...] Social History Type Response Smoking Status Never smoker entered on: 03/17/17 Sex
--- OUTSIDE RECORDS SUMMARY | 2023-06-14 22:19 | XMS_ITS | Continuity of Care Document ---
Author Name Unknown Organization [facility] al Address [address] [place] [address]- Care Team Providers Care Well Surveying Engineer Name Role Phone Yrn Sanchez Primary Care Physician Encounter [facility] Date(s): 01/19/23 - 01/21/[address] [address]- Discharge Disposition: A-D/C Home Attending Physician: Almas Hutton DO Admitting Physician: Skylar Oakley MD Referring Physician: Chapin Cardoso MD Allergies, Adverse Reactions, Alerts No Known Allergies Medications Adderall 10 mg oral tablet 1 tablet = 10 mg, By Mouth, Daily in AM, 0 Refills, Maintenance, 01/19/23 20:28:00 EDT, Partial fill upon patient request if the prescription is for a schedule II opioid drug. Start Date: 01/19/23 Status: Ordered buPROPion 300 mg/24 hours (XL) oral tablet, extended release 1 tablet = 300 mg, By Mouth, Daily, # 30 tablet, 0 Refills, Maintenance, 01/19/23 20:11:00 EDT, ER Tablet, Partial fill upon patient request if the prescription is for a schedule II opioid drug. Start Date: 01/19/23 Status: Ordered lisinopril 10 mg oral tablet 10 mg, 1, tablet, By Mouth, Daily, # 30 tablet, Refills 0, Maintenance, 01/19/23 15:16:00 EDT, Partial fill upon patient request if the prescription is for a schedule II opioid drug. Start Date: 01/19/23 Status: Ordered mirtazapine 15 mg oral tablet 1 tablet = 15 mg, By Mouth, Daily at bedtime, # 30 tablet, 0 Refills, Maintenance, 01/19/23 20:12:00 EDT, Tablet, Partial fill upon patient request if the prescription is for a schedule II opioid drug. Start Date: 01/19/23 Status: Ordered Problem List Condition Confirmation Course Effective Dates Status Health St at[facility] Informant Anxiety Confirmed Active Hypertension Confirmed Active Obese class I Confirmed Active Vital Signs Most recent to oldest [Reference Range]: 1 2 3 Height 195 cm (01/21/23 11:33 AM) 195 cm (01/21/23 7:54 AM) 195 cm (01/21/23 6:37 AM) Weight 123 kg (01/19/23 8:11 PM) 125 kg (01/19/23 8:02 PM) 120.7 kg (01/19/23 3:10 PM) Oxygen Saturation [94-100 %] 99 % (01/21/23 11:33 AM) 100 % (01/21/23 7:54 AM) 97 % (01/21/23 6:37 AM) Pulse Rate [55-90 bpm] 92 bpm *H* (01/21/23 11:33 AM) 83 bpm (01/21/23 7:54 AM) 92 bpm *H* (01/21/23 6:37 AM) Body Mass Index [18.5-24.99 kg/m2] 32.35 kg/m2 *>HHI* (01/19/23 8:11 PM) 32.87 kg/m2 *>HHI* (01/19/23 8:02 PM) Blood Pressure [90-138/55-84 mm Hg] 143/96mm Hg 1 *H* (01/21/23 11:33 AM) 137/78mm Hg 2 (01/21/23 7:54 AM) 144/76mm Hg *H* (01/21/23 6:37 AM) Respiratory Rate [16-30 br/min] 18 br/min (01/21/23 11:33 AM) 16 br/min (01/21/23 7:54 AM) 18 br/min (01/21/23 6:37 AM) Temperature [96.8-100.4 DegF] 98.6 DegF (01/21/23 11:33 AM) 98.6 DegF (01/21/23 7:54 AM) 98 DegF (01/21/23 6:37 AM) Liters per Minute 0 L/min (01/20/23 3:00 PM) 0 L/min (01/20/23 11:42 AM) 0 L/min (01/20/23 8:07 AM) Mode of Delivery (Oxygen) Room air (01/21/23 11:33 AM) Room air (01/21/23 7:54 AM) Room air (01/21/23 6:37 AM) Blood pressure sites Arm, right (01/21/23 11:33 AM) Arm, left (01/21/23 7:54 AM) Arm, left (01/21/23 6:37 AM) Temperature Route Oral (01/21/23 11:33 AM) Oral (01/21/23 7:54 AM) Oral (01/21/23 6:37 AM) Dry Weight 118 kg (01/19/23 8:02 PM) 120.7 kg (01/19/23 3:10 PM) Weight Obtained Via Standing scale (01/19/23 8:11 PM) Bed scale (01/19/23 8:02 PM) Standing scale (01/19/23 3:10 PM) Dry Weight Obtained Via Patient/family s tated (01/19/23 8:02 PM) Standing scale (01/19/23 3:10 PM) 1Result Comment: rn informed 2Result Comment: Itzel informed Social History Social History Type Response Smoking Status Never smoker; Tobacc o user in household: No entered on: 01/06/17 Sex Admission evaluation note * Concepción FERRER, Pam: PERFORM Event Display: Admission Note Authored Date: Patient: ??ODIN PETERSEN ? Age:??32 Years?Sex:??Male?:??1990?? History of Present Illness This is a 31-year-old male with history of?? HTN, depression and anxiety and alcohol abuse with dependence presented today to ER with etoh??withdrawal. Patient states that he typically drinks a largeamount of vodka per day, he is unable to quantify how much. ??He states that he has had some mild withdrawal symptoms in the past but this was during detox. Last drink was last night and throughout the day today he thought that he had some visual hallucinations. In ED he was tachycardic to 120s andhypertensive to 180s, very tremulous, agitated, complained of diffuse body pain, nausea and feelingvery sick. Bloodwork was remarkable for transaminitis and metabolic acidosis. He was loaded with phe nobarbital and given 3L LR. The patient denies any chest pain, dyspnea, orthopnea, PND, lightheadedness, palpitations, syncope,?? vomiting, diarrhea or abdominal pain Review of Systems Complete review of systems was obtained and is negative except for those mentioned above. Objective ?? Physical Exam Temperature?98.6 ?(20:07) Systolic Blood Pressure?192 ?(20:07) Diastolic Blood Pressure?89 ?(20:07) Pulse?125 ?(20:07) SpO2?99 ?(20:07) Respiratory Rate?18 ?(20:07) ? Constitutional: Alert, tremulous,??in??mild distress. Head EENT: Normocephalic. Extraocular muscles intact.??Moist mucous membranes.?? Neck: Supple. No JVD. Respiratory: Clear to auscultation. No wheezing or crackles. No use of accessory muscles. Cardiovascular: S1S2 regular. No murmurs, rubs or gallops. Gastrointestinal: Abdomen soft, non-tender, non-distended. Normal bowel sounds. Extremities: No lower extremity pitting pedal edema. No cyanosis or clubbing. Neurologic: AAOx3, Speech normal. No focal neurological deficits. Skin: No rash. Psychiatric: Normal mood and affect?? Assessment/Plan Diagnoses Alcohol withdrawal ??(F16.811) Delirium tremens ??(F10.931) HTN (hypertension) ??(I10) Metabolic acidosis ??(E87.20) Transaminitis ??(R74.01) ?? Assessment:??This is a 31-year-old male with history of HTN, depression and anxiety and alcohol abuse with dependence presented today to ER with etoh withdrawal. ?? Alcohol withdrawal (F10.939):??with Delirium tremens (F10.931):??will continue with pheobarbtal protocol IV, start folate, pyridoxine, thiamine and miultivit. IV fluids as below. ?? Mood disorder: continuie home bupropione and mirtazapine ?? HTN (hypertension) (I10):??continue home lisinopril ?? Metabolic acidosis (E87.20):??likely etoh ketoacidosis, will start D5NS 150cc/hr ?? Transaminitis (R74.01):??probably alcoholic hepatitis, will stat IV fluids as above and monitor ?? VTE Prophylaxis:??lovenox ?VTE Prophylaxis Assessment:??VTE Prophylaxis Ordered ?? Code Status:??full code ?Order Code Status:??Code Status Ordered ?? Discharge Planning:? Histories Allergies Allergies ?(Active and Proposed Allergies Only) NKA? (Severity: Unknown severity, Onset: Unknown) ? Past Medical History/Problem List Active Problems??(3) Anxiety Hypertension Obese class I ? Social History Alcohol Details:??Use: Current. ??Frequency: Daily. ??Type: Liquor. ??Other: HEAVY DRINKING X 2 YRS AFTER AN INCIDENT. WENT TO DETOX 30 DAY IN MAY. RELAPSED WENT BACK INTO REHAB IN JUNE. STAYED SOBERCOUPL 70 DAYS RELAPSED WENT BACK TO REHAB IN JUNE AND ??STAYED SOBER COUPLE MONTHS THEN ??STARTED BACK UP AGAIN 15 NIPS/DA. Employment/School Details:??Status: Employed. Home/Environment Details:??Living situation: Home/Independent. ??Lives with: Spouse. ??Other: DOG. Nutrition/Health Details:??Diet: Regular. ??Caffeine intake amount: 1 coffee/day. Substance Abuse Details:??Use: Never. Tobacco Details:??Never smoker, Tobacco user in household: No. Electronic Cigarette/Vaping Details:??Electronic Cigarette Use: Never. ? Family History No family history recorded. ? Medications Home Medications BuPROpion (Wellbutrin)?By Mouth BuPROpion (buPROPion 300 mg/24 hours (XL) oral tablet, extended release)?1?tab(s)?300?Milligram?By Mouth?Daily Lisinopril (lisinopril 10 mg oral tablet)?10?Milligram?1?tablet?By Mouth?Daily Lisinopril (lisinopril 10 mg oral tablet)?10?Milligram?1?tablet?By Mouth?Daily Mirtazapine (mirtazapine 15 mg oral tablet)?1?tab(s)?15?Milligram?By Mouth?Daily at bedtime ? Results Recent Labs BLOOD COUNT & DIFF WBC 14.5 k/mm3 (High)?? 01/19/2023 15:26 RBC 5.45 m/mm3 ()?? 01/19/2023 15:26 Hgb 17.2 Gm/dL (High)?? 01/19/2023 15:26 Hct 47.6 % ()?? 01/19/2023 15:26 MCV 87.3 femtoliters ()?? 01/19/2023 15:26 MCH 31.6 pg ()?? 01/19/2023 15:26 MCHC 36.1 g/dL ()?? 01/19/2023 15:26 Platelet Count 217 k/mm3 ()?? 01/19/2023 15:26 RDW-SD 42.3 femtoliters ()?? 01/19/2023 15:26 MPV 10.7 femtoliters ()?? 01/19/2023 15:26 Nucleated RBC (Automated) 0.0 #/100 WBC'S ()?? 01/19/2023 15:26 Abs. NRBC 0.0 k/mm3 ()?? 01/19/2023 15:26 Abs. Neut 12.6 k/mm3 (High)?? 01/19/2023 15:26 Abs. Lymph 0.9 k/mm3 ()?? 01/19/2023 15:26 Abs. [place] 0.9 k/mm3 ()?? 01/19/2023 15:26 Abs. Eo 0.0 k/mm3 ()?? 01/19/2023 15:26 Abs. Baso 0.1 k/mm3 ()?? 01/19/2023 15:26 Neut % 86.4 % (High)?? 01/19/2023 15:26 Lymph % 6.3 % (Low)?? 01/19/2023 15:26 [place] % 5.9 % ()?? 01/19/2023 15:26 Eos % 0.1 % ()?? 01/19/2023 15:26 Baso % 0.9 % ()?? 01/19/2023 15:26 Imm Gran 0.4 % ()?? 01/19/2023 15:26 Abs. Imm Gran 0.1 k/mm3 ()?? 01/19/2023 15:26 ?? CHEM GENERAL Sodium 139 mmol/L ()?? 01/19/2023 18:27 Potassium 4.2 mmol/L ()?? 01/19/2023 18:27 Chloride 97 mmol/L (Low)?? 01/19/2023 18:27 Bicarbonate Level 18 mmol/L (Low)?? 01/19/2023 18:27 Anion Gap 24 (High)?? 01/19/2023 18:27 Glucose Level 90 mg/dL ()?? 01/19/2023 18:27 BUN 13 mg/dL ()?? 01/19/2023 18:27 Creatinine-Blood 0.8 mg/dL ()?? 01/19/2023 18:27 Estimated GFR Creatinine 120 ML/MIN/1.73 M2 ()?? 01/19/2023 18:27 Calcium 8.9 mg/dL ()?? 01/19/2023 18:27 Protein, Total 7.8 Gm/dL ()?? 01/19/2023 18:27 Albumin 4.7 Gm/dL ()?? 01/19/2023 18:27 AG Ratio 1.5 ()?? 01/19/2023 18:27 Alkaline Phosphatase 133 units/L (High)?? 01/19/2023 18:27 Lipase 15 units/L ()?? 01/19/2023 15:26 AST (SGOT) 90 units/L (High)?? 01/19/2023 18:27 ALT (SGPT) 85 units/L (High)?? 01/19/2023 18:27 Bilirubin, Total 2.6 mg/dL (High)?? 01/19/2023 18:27 Lactate 1.3 mmol/L ()?? 01/19/2023 18:27 ?? HEME OTHER Hold Blue Top SPECIMEN DISCARDED AFTER 4 HOURS. ()?? 01/19/2023 15:26 ?? MISC. CHEMISTRY Hold Green Top SPECIMEN DISCARDED AFTER 1 WEEK ()?? 01/19/2023 15:26 ?? TOXICOLOGY/TDM Ethanol, Serum or Plasma NONE DETECTED mg/dL ()?? 01/19/2023 15:26 ?? UA/URINALYSIS Appear/Color, Urine YELLOW ()?? 01/19/2023 18:01 Clarity CLEAR (N)?? 01/19/2023 18:01 Specific [place], Urine >1.030 (High)?? 01/19/2023 18:01 pH, Urine 5.5 ()?? 01/19/2023 18:01 Albumin, Urine 2+ (Abnormal)?? 01/19/2023 18:01 Glucose, Urine NEGATIVE (N)?? 01/19/2023 18:01 Ketones, Urine 4+ (Abnormal)?? 01/19/2023 18:01 Bilirubin, Urine NEGATIVE (N)?? 01/19/2023 18:01 Hemoglobin, Urine NEGATIVE (N)?? 01/19/2023 18:01 Nitrite, Urine NEGATIVE (N)?? 01/19/2023 18:01 Leukocyte, Urine NEGATIVE (N)?? 01/19/2023 18:01 Urobilinogen NORMAL mg/dL (N)?? 01/19/2023 18:01 WBC's, Urine 1 /HPF ()?? 01/19/2023 18:01 RBC's, Urine NONE SEEN /HPF ()?? 01/19/2023 18:01 Hyaline Cast 19 LPF (High)?? 01/19/2023 18:01 Granular Cast 9 /LPF ()?? 01/19/2023 18:01 Mucus MODERATE /LPF ()?? 01/19/2023 18:01 Hold Urine Culture Testing available 48 hours from time of collection. ()?? 01/19/2023 18:01 ?? URINE OTHER Est Creatinine Clearance 164.54 mL/min ()?? 01/19/2023 18:50 ?? VIROLOGY COVID-19 by RT-PCR NEGATIVE ()?? 01/19/2023 17:46 ? Microbiology ?? COVID-19 (Novel Coronavirus), Rapid PCR?? Completed?? Source: Nasal Body Site: Nose Collected Dt/Tm: 01/19/2023 17:40 Last Updated Dt/Tm: 01/19/2023 18:28 ? Hospital Progress note * Itzel Bowers RN: PERFORM, SIGN, VERIFY Event Display: Progress Note Hospital Authored Date: Patient: ODIN PETERSEN Age: 32 years Sex: Male : 1990 Associated Diagnoses: None Author: Itzel Bowers RN Findings Problem Related to Alteration in Psychosocial : Alteration in Psychosocial Function/new 01/21/2023 10:00 EDT Alteration in Psychosocial Related to Acute Alcohol Withdrawal Goals & Outcomes, Psychosocial Psychosocial support will be provided to Pt/S.O. as needed, Pt will identify stressors leading up to event, Pt will state importance of adhering to medication regime, Pt/caregiver will express feelings/needs/fears /concerns, Pt/caregiver will maintain/obtain psychological stability Interventions, Psychosocial Assess psychosocial needs, Assess readiness to learn needed lifestyle changes, Assess/monitor level of consciousness BH Goals/Interventions, Psychosocial Yes Psychosocial, Problem Start 01/19/2023 20:19 Reviewed Plan with, Psychosocial Patient Patient Progression, Psychosocial Pt progressing according to plan . Alteration in Safety : Alteration in Safety/new 01/21/2023 10:00 EDT Alteration in Safety Related to Other: high fall risk Goals & Outcomes, Safety Pt will remain safe & injury free Interventions, Safety Provide info on community resources for education, support, Provide teaching as needed Goals/Interventions, Safety Yes Safety, Problem Start 01/20/2023 4:38 Reviewed plan with, Safety Patient Patient Progression, Safety Pt progressing according to plan . Evaluation Patient is alert and oriented. On room air tolerating well. Denies any pain. Takes pills whole withwater. OOB independently, refuses bed alarm On CIWA precaution and seizure precautions. Monitored on telemetry, Sinus tacky/ NSR. Continent of bowel and bladder. Safety maintained, will continue to monitor. Itzel Bowers RN . * Garret Hinson RN: MODIFY, SIGN, VERIFY, PERFORM Event Display: Progress Note Hospital Authored Date: Patient: ODIN PETERSEN Age: 32 years Sex: Male : 1990 Associated Diagnoses: None Author: Garret Hinson RN Findings Problem Related to Alteration in Psychosocial : Alteration in Psychosocial Function/new 01/21/2023 0:00 EDT Alteration in Psychosocial Related to Acute Alcohol Withdrawal Goals & Outcomes, Psychosocial Psychosocial support will be provided to Pt/S.O. as needed, Pt will identify stressors leading up to event, Pt will state importance of adhering to medication regime, Pt/caregiver will express feelings/needs/fears /concerns, Pt/caregiver will maintain/obtain psychological stability Interventions, Psychosocial Assess psychosocial needs, Provide a calm, supportive environment Goals/Interventions, Psychosocial Yes Psychosocial, Problem Start 01/19/2023 20:19 Reviewed Plan with, Psychosocial Patient Patient Progression, Psychosocial Pt progressing according to plan . Evaluation pt alert and oriented x4. Dx w/ ETOH withdrawal. Denied chest pain, sob or nausea. No tremors noted. Lungs CTA. Abdomen soft and nontender, BSx4. CIWA scored1- 8. Seizure precaution in place. pt appeared comfortable and asleep in bed. TAB alarm on. Call gomez within reach. Hourly rounds maintained. . * Almas Hutton DO: MODIFY, PERFORM Event Display: Progress Note Hospital Authored Date: Patient: ??ODIN PETERSEN ? Age:??32 Years?Sex:??Male?:??1990?? Subjective Patient seen and examined at bedside. No significant overnight events. BP at times elevated and tachycardic. Patient scored 12 on CIWA overnight as a max. Patient does admit some nausea, sweating, faint tremors, and headache with anxiety. Discussed alcohol detox at length. Review of Systems Constitutional:??Patient denies fever, chills, sweats HEENT: patient reports neck swelling Cardiovascular: Patient denies chest pain, palpitations Pulmonary: Patient denies dyspnea, cough GI: Patient admits mild nausea,??denies vomiting, abdominal pain, diarrhea : Patient denies dysuria, urgency, frequency Neurologic: Patient reports mild headache, no dizziness, syncope Musculoskeletal: Patient denies muscle pain, back pain, joint pain Psychiatric: Patient denies depression, admits some anxiety Objective Vital Signs?? Temperature: 98.4 DegF (01/20/23 18:22:00) Temperature Route: Oral (01/20/23 18:22:00) Pulse Rate:??106 bpm??High (01/20/23 18:22:00) Respiratory Rate: 18 br/min (01/20/23 18:22:00) Systolic Blood Pressure:??158 mm Hg??High (01/20/23 18:22:00) Diastolic Blood Pressure:??104 mm Hg??High (01/20/23 18:22:00) Blood pressure sites: Arm, left (01/20/23 15:00:00) Mean Arterial Pressure: 96 mm Hg (01/20/23 11:42:00) Pulse Pressure: 61 mm Hg (01/20/23 15:00:00) Oxygen Saturation: 100 % (01/20/23 15:00:00) Liters per Minute: 0 L/min (01/20/23 15:00:00) Mode of Delivery (Oxygen): Room air (01/20/23 15:00:00) Early Warning Score: 8 (01/20/23 18:24:42) ? Physical Exam Constitutional: Alert, in no acute distress Eyes: EOMI, no pallor or scleral icterus Ear, Nose and Throat: mucous membranes moist. Entire neck enlarged/swollen without stridor, tonsilsnot enlarged, no bruits Respiratory: Clear to auscultation b/l without wheezes, rales or rhonchi. No use of accessory muscles. Cardiovascular: Regular rate and rhythm, no rubs, murmurs or gallops. Gastrointestinal: Abdomen soft, non-tender, non-distended. Normal bowel sounds. Genitourinary: No costovertebral angle tenderness. No suprapubic tenderness. Extremities: No lower extremity pitting edema. No cyanosis or clubbing. Neurologic: AAOx3, Cranial nerves II-XII intact. Moves all 4 extremities spontaneously. Sensation intact bilaterally.??+ tremor. _ Inpatient Medications Medications (19) Active SCHEDULED: (9) BuPROPion XL 150 mg Tablet (BuPROpion XL Tablet) ??300 mg, By Mouth, Daily Folic Acid 1 mg Tablet (Folic Acid Tablet) ??1 mg, By Mouth, Daily Lisinopril 5 mg Tablet (lisinopril 5 mg oral tablet) ??10 mg, By Mouth, Daily Mirtazapine 15 mg Tablet (mirtazapine 15 mg oral tablet) ??15 mg, By Mouth, Daily at bedtime Multivitamin Tablet ??1 tablet, By Mouth, Daily NaCl 0.9% Flush 3ml (NaCL 0.9% Flush) ??3 mL, IV Push, Every 8 hours Pantoprazole 40 mg EC Tablet (Protonix 40 mg oral delayed release tablet) ??40 mg, By Mouth, Daily Pyridoxine 50 mg Tablet (Pyridoxine Tablet) ??50 mg, By Mouth, Daily Thiamine 100 mg Tablet (Thiamine Tablet) ??100 mg, By Mouth, 2 times a day CONTINUOUS: (0) PRN: (10) Acetaminophen 325 mg Tablet (Acetaminophen Tablet) ??650 mg, By Mouth, Every 4 hours Al hydroxide/Mg hydroxide/simethicone 200 mg-200 mg-20 mg/5 mL Susp UD (Maalox Plus Liquid) ??15 mL, By Mouth, 4 times a day Dextromethorphan-Guaifenesin 20 mg-200 mg/10 mL Liqu UD (Robitussin DM Liquid) ??10 mL, By Mouth, Every 4 hours Melatonin 3 mg Tablet (Melatonin Tablet) ??3 mg, By Mouth, Daily at bedtime NaCl 0.9% Flush 3ml (NaCL 0.9% Flush) ??3 mL, IV Push, Every 8 hours Ondansetron 2mg/mL Inj (2mL Vial) (Zofran Inj) ??4 mg, IV Push, Every 6 hours Phenobarbital 130 mg/mL Inj (Phenobarbital Inj) ??130 mg 1 mL, IV Push, Every 2 hours Polyethylene Glycol 17 Gm Powder (MiraLax Powder) ??17 Gm 1 pack/packet, By Mouth, Daily Senna 8.6 mg / Docusate 50 mg tablet (Docusate/Senna Tablet) ??1 tablet, By Mouth, 2 times a day Simethicone 80 mg Chewable Tablet (Simethicone Tablet) ??80 mg, Chew, 3 times a day ? Results Recent Labs BLOOD COUNT & DIFF WBC 7.9 k/mm3 ()?? 01/20/2023 05:33 RBC 4.20 m/mm3 (Low)?? 01/20/2023 05:33 Hgb 13.4 Gm/dL (Low)?? 01/20/2023 05:33 Hct 36.7 % (Low)?? 01/20/2023 05:33 MCV 87.4 femtoliters ()?? 01/20/2023 05:33 MCH 31.9 pg ()?? 01/20/2023 05:33 MCHC 36.5 g/dL ()?? 01/20/2023 05:33 Platelet Count 68 k/mm3 (Low)?? 01/20/2023 05:33 RDW-SD 41.4 femtoliters ()?? 01/20/2023 05:33 MPV 11.4 femtoliters ()?? 01/20/2023 05:33 Nucleated RBC (Automated) 0.0 #/100 WBC'S ()?? 01/20/2023 05:33 Abs. NRBC 0.0 k/mm3 ()?? 01/20/2023 05:33 Abs. Neut 12.6 k/mm3 (High)?? 01/19/2023 15:26 Abs. Lymph 0.9 k/mm3 ()?? 01/19/2023 15:26 Abs. [place] 0.9 k/mm3 ()?? 01/19/2023 15:26 Abs. Eo 0.0 k/mm3 ()?? 01/19/2023 15:26 Abs. Baso 0.1 k/mm3 ()?? 01/19/2023 15:26 Neut % 86.4 % (High)?? 01/19/2023 15:26 Lymph % 6.3 % (Low)?? 01/19/2023 15:26 [place] % 5.9 % ()?? 01/19/2023 15:26 Eos % 0.1 % ()?? 01/19/2023 15:26 Baso % 0.9 % ()?? 01/19/2023 15:26 Imm Gran 0.4 % ()?? 01/19/2023 15:26 Abs. Imm Gran 0.1 k/mm3 ()?? 01/19/2023 15:26 ?? CHEM GENERAL Sodium 135 mmol/L ()?? 01/20/2023 05:33 Potassium 3.4 mmol/L (Low)?? 01/20/2023 05:33 Chloride 99 mmol/L ()?? 01/20/2023 05:33 Bicarbonate Level 23 mmol/L ()?? 01/20/2023 05:33 Anion Gap 13 ()?? 01/20/2023 05:33 Glucose Level 106 mg/dL (High)?? 01/20/2023 05:33 BUN 8 mg/dL ()?? 01/20/2023 05:33 Creatinine-Blood 0.7 mg/dL ()?? 01/20/2023 05:33 Estimated GFR Creatinine 125 ML/MIN/1.73 M2 ()?? 01/20/2023 05:33 Calcium 8.6 mg/dL ()?? 01/20/2023 05:33 Phosphorus 2.2 mg/dL (Low)?? 01/20/2023 05:33 Magnesium 1.5 mg/dL (Low)?? 01/20/2023 05:33 Protein, Total 6.4 Gm/dL ()?? 01/20/2023 05:33 Albumin 3.9 Gm/dL ()?? 01/20/2023 05:33 AG Ratio 1.6 ()?? 01/20/2023 05:33 Alkaline Phosphatase 103 units/L ()?? 01/20/2023 05:33 Lipase 15 units/L ()?? 01/19/2023 15:26 AST (SGOT) 72 units/L (High)?? 01/20/2023 05:33 ALT (SGPT) 67 units/L (High)?? 01/20/2023 05:33 Bilirubin, Total 2.0 mg/dL (High)?? 01/20/2023 05:33 Lactate 1.3 mmol/L ()?? 01/19/2023 18:27 ?? HEME OTHER Hold Blue Top SPECIMEN DISCARDED AFTER 4 HOURS. ()?? 01/19/2023 15:26 ?? MISC. CHEMISTRY Hold Green Top SPECIMEN DISCARDED AFTER 1 WEEK ()?? 01/19/2023 15:26 ?? TOXICOLOGY/TDM Ethanol, Serum or Plasma NONE DETECTED mg/dL ()?? 01/19/2023 15:26 ?? UA/URINALYSIS Appear/Color, Urine YELLOW ()?? 01/19/2023 18:01 Clarity CLEAR (N)?? 01/19/2023 18:01 Specific [place], Urine >1.030 (High)?? 01/19/2023 18:01 pH, Urine 5.5 ()?? 01/19/2023 18:01 Albumin, Urine 2+ (Abnormal)?? 01/19/2023 18:01 Glucose, Urine NEGATIVE (N)?? 01/19/2023 18:01 Ketones, Urine 4+ (Abnormal)?? 01/19/2023 18:01 Bilirubin, Urine NEGATIVE (N)?? 01/19/2023 18:01 Hemoglobin, Urine NEGATIVE (N)?? 01/19/2023 18:01 Nitrite, Urine NEGATIVE (N)?? 01/19/2023 18:01 Leukocyte, Urine NEGATIVE (N)?? 01/19/2023 18:01 Urobilinogen NORMAL mg/dL (N)?? 01/19/2023 18:01 WBC's, Urine 1 /HPF ()?? 01/19/2023 18:01 RBC's, Urine NONE SEEN /HPF ()?? 01/19/2023 18:01 Hyaline Cast 19 LPF (High)?? 01/19/2023 18:01 Granular Cast 9 /LPF ()?? 01/19/2023 18:01 Mucus MODERATE /LPF ()?? 01/19/2023 18:01 Hold Urine Culture Testing available 48 hours from time of collection. ()?? 01/19/2023 18:01 ?? URINE OTHER Est Creatinine Clearance 188.05 mL/min ()?? 01/20/2023 06:13 ?? VIROLOGY COVID-19 by RT-PCR NEGATIVE ()?? 01/19/2023 17:46 ? Microbiology ?? COVID-19 (Novel Coronavirus), Rapid PCR?? Completed?? Source: Nasal Body Site: Nose Collected Dt/Tm: 01/19/2023 17:40 Last Updated Dt/Tm: 01/19/2023 18:28 ? Assessment/Plan Diagnoses Alcohol withdrawal ??(F10.939) Delirium tremens ??(F10.931) HTN (hypertension) ??(I10) Metabolic acidosis ??(E87.20) Transaminitis ??(R74.01) Hypomagnesemia (E83.2) Hypophosphatemia (E83.39)?? Mood disorder (F39) ?? Assessment:??This is a 31-year-old male with history of HTN, depression and anxiety and alcohol abuse with dependence presented today to ER with etoh withdrawal. ?? Hypomagnesemia (E83.2) Hypophosphatemia (E83.39) Alcohol withdrawal (F10.939):?? Delirium tremens (F10.931):??The patient has a history of alcohol abuse and presented with alcohol withdrawal after drinking heavily for the past few weeks. He states he drinks 100% proof vodka??withhis last drink on Tuesday.??Labs revelaed hypomagnesemia and hypophosphatemia in the setting of heavy alcohol use. In the ED he was tachycardic and hypertensive, tremulous, nauseas and agitated. Patient was started on CIWA protocol with scheduled phenobarbital. ?? -Continue phenobarbital and CIWA protocol -Continue folate, pyridoxine, thiamine and miulti vitamin -Replete mag and phos and recheck in the am? Metabolic acidosis (E87.20):??Resolved. This was likely in the setting of alcohol ketosis that resolved with D5NS.? Transaminitis (R74.01):??Improving. Patient likely with alcoholic hepatitis.?? -Continue to??monitor LFTs periodically ?? HTN (hypertension) (I10):??continue home lisinopril ?? Mood disorder (F39): Continue home bupropion and mirtazapine ?? VTE Prophylaxis:??lovenox?? Code Status:??full code ?? [id number] Greater than 70 minutes spent reviewing patient's records, IPOC/nursing rounds, gathering HPI, discussing alcohol cessation and options, discussing in depth his previous attempts with alcohol cessation and multiple alcohol cessation programs and monthly naltrexone injections in the past? Note * Itzel Bowers RN: PERFORM Event Display: Discharge/Transfer Note Hospital Authored Date: Nursing Discharge Note Entered On: 01/21/2023 13:27 EDT Performed On: 01/21/2023 13:27 EDT by Itzel Bowers RN Nursing Discharge Note 2 Discharge Time : 01/21/2023 13:25 EDT Discharge Level of Care at Discharge : Home/Assisted/Foster Care Patient Left Unit Via : Ambulatory Patient Accompanied Off Unit with : Responsible adult DC Instructions Provided & Signed by Pt : Yes Patient Understands D/C Instructions : Yes Patient Instructions Discharge Signed : Yes Did Pt have Specialty Bed or Wound Vac : No Itzel Bowers RN - 01/21/2023 13:27 EDT * Almas Hutton DO: PERFORM, MODIFY Event Display: Discharge/Transfer Note Hospital Authored Date: Patient: ??ODIN PETERSEN ? Age:??32 Years?Sex:??Male?:??1990?? Patient Information Discharge Location: Med Surg Primary Care Physician: Yrn Sanchez Admit Date/Time: 01/19/23 19:08 Discharge Disposition Discharge Disposition: Home: No Services Discharge Diagnosis Alcohol withdrawal (F10.939) Delirium tremens (F10.931) HTN (hypertension) (I10) Hypomagnesemia (E83.42) Hypophosphatemia (E83.39) Metabolic acidosis (E87.20) Mood disorder (F39) Transaminitis (R74.01) _ Discharge Medications Amphetamine-Dextroamphetamine (Adderall 10 mg oral tablet)?1?tab(s)?10?Milligram?By Mouth?Daily in AM BuPROpion (buPROPion 300 mg/24 hours (XL) oral tablet, extended release)?1?tab(s)?300?Milligram?By Mouth?Daily Lisinopril (lisinopril 10 mg oral tablet)?10?Milligram?1?tablet?By Mouth?Daily Mirtazapine (mirtazapine 15 mg oral tablet)?1?tab(s)?15?Milligram?By Mouth?Daily at bedtime ? Durable Medical Equipment Ambulatory devices needed: None (01/21/23) ? Medications Started None Medications Discontinued None Doses Changed None Allergies Allergies ?(Active and Proposed Allergies Only) NKA? (Severity: Unknown severity, Onset: Unknown) ? PCP Follow-Up/Heads-Up Alcohol cessation Transaminitis Hospital Course History of Present Illness This is a 31-year-old male with history of HTN, depression and anxiety and alcohol abuse with dependence presented today to ER with etoh withdrawal. Patient states that he typically drinks a large amount of vodka per day, he is unable to quantify how much. He states that he has had some mild withdrawal symptoms in the past but this was during detox. Last drink was last night and throughout the day today he thought that he had some visual hallucinations. In ED he was tachycardic to 120s and hypertensive to 180s, very tremulous, agitated, complained of diffuse body pain, nausea and feeling verysick. Bloodwork was remarkable for transaminitis and metabolic acidosis. He was loaded with phenobarbital and given 3L LR. The patient denies any chest pain, dyspnea, orthopnea, PND, lightheadedness,palpitations, syncope, vomiting, diarrhea or abdominal pain ?? Objective Assessment and Plan Hypomagnesemia (E83.2) Hypophosphatemia (E83.39) Alcohol withdrawal (F10.939):?? Delirium tremens (F10.931):??The patient has a history of alcohol abuse and presented with alcohol withdrawal after drinking heavily for the past few weeks. He states he drinks 100% proof vodka??withhis last drink on Tuesday.??Labs revealed hypomagnesemia and hypophosphatemia in the setting of heavy alcohol use that resolved with repletion. In the ED he was tachycardic and hypertensive, tremulous, nauseas and agitated. Patient was started on CIWA protocol with scheduled phenobarbital, thiamine, flic acid, pyrodixine, and multivitamin. Patient scoring 1 on CIWA consistently prior to discharge. Patient was seen by social work, and he has a good support system and will continue to see his ther apist. Patient will see his primary care provider for medication to help with alcohol cessation. ?? Metabolic acidosis (E87.20):??Resolved. This was likely in the setting of alcohol ketosis that resolved with D5NS.? Transaminitis (R74.01):??Improving. Patient to follow up with his primary care provider to ensure resolution of transaminitis. ?? HTN (hypertension) (I10):??continue home lisinopril ?? Mood disorder (F39): Continue home bupropion and mirtazapine ?? Code Status:??full code ? Vital Signs?? Temperature: 98.6 DegF (01/21/23 11:33:00) Temperature Route: Oral (01/21/23 11:33:00) Pulse Rate:??92 bpm??High (01/21/23 11:33:00) Respiratory Rate: 18 br/min (01/21/23 11:33:00) Systolic Blood Pressure:??143 mm Hg??High (01/21/23 11:33:00) Diastolic Blood Pressure:??96 mm Hg??High (01/21/23 11:33:00) Blood pressure sites: Arm, right (01/21/23 11:33:00) Mean Arterial Pressure: 112 mm Hg (01/21/23 11:33:00) Pulse Pressure: 47 mm Hg (01/21/23 11:33:00) Oxygen Saturation: 99 % (01/21/23 11:33:00) Liters per Minute: 0 L/min (01/20/23 15:00:00) Mode of Delivery (Oxygen): Room air (01/21/23 11:33:00) Early Warning Score: 7 (01/21/23 11:37:28) ? . Physical Exam Constitutional: Alert, in no acute distress Head: Normocephalic, atraumatic Eyes: EOMI, no pallor or scleral icterus Ear, Nose and Throat: mucous membranes moist. Neck remains enlarged but decreased from yesterday without erythema, stridor, and no enlarged tonsils Respiratory: Clear to auscultation b/l without wheezes, rales or rhonchi. Cardiovascular: Regular rate and rhythm, no rubs, murmurs or gallops. Gastrointestinal: Abdomen soft, non-tender, non-distended. Normal bowel sounds. Genitourinary: No suprapubic tenderness. Extremities: No lower extremity pitting edema. Neurologic: AAOx3, Cranial nerves II-XII grossly intact. Moves all 4 extremities spontaneously. No tremors on exam. Psychiatric:??Appropriate mood and affect. Follow-Up Appointments Added Follow Up ?Time Frame ?Comments Yrn Sanchez Patient Instructions Follow up with your primary care provider, Yrn Bui, in 1 week if possible Continue to abstain from alcohol. Your liver function tests are improving and should continue to improve if you stay away from alcohol. Yrn Bui can start you on medication to help with abstaining from alcohol when you see him asyour liver function will be at your baseline Return to the ED if you experience similar withdrawal symptoms in the future ?? Results Discharge Labs BLOOD COUNT & DIFF WBC 5.0 k/mm3 ()?? 01/21/2023 06:09 RBC 4.07 m/mm3 (Low)?? 01/21/2023 06:09 Hgb 12.9 Gm/dL (Low)?? 01/21/2023 06:09 Hct 35.8 % (Low)?? 01/21/2023 06:09 MCV 88.0 femtoliters ()?? 01/21/2023 06:09 MCH 31.7 pg ()?? 01/21/2023 06:09 MCHC 36.0 g/dL ()?? 01/21/2023 06:09 Platelet Count 59 k/mm3 (Low)?? 01/21/2023 06:09 RDW-SD 41.9 femtoliters ()?? 01/21/2023 06:09 MPV 11.4 femtoliters ()?? 01/21/2023 06:09 Nucleated RBC (Automated) 0.0 #/100 WBC'S ()?? 01/21/2023 06:09 Abs. NRBC 0.0 k/mm3 ()?? 01/21/2023 06:09 Abs. Neut 12.6 k/mm3 (High)?? 01/19/2023 15:26 Abs. Lymph 0.9 k/mm3 ()?? 01/19/2023 15:26 Abs. [place] 0.9 k/mm3 ()?? 01/19/2023 15:26 Abs. Eo 0.0 k/mm3 ()?? 01/19/2023 15:26 Abs. Baso 0.1 k/mm3 ()?? 01/19/2023 15:26 Neut % 86.4 % (High)?? 01/19/2023 15:26 Lymph % 6.3 % (Low)?? 01/19/2023 15:26 [place] % 5.9 % ()?? 01/19/2023 15:26 Eos % 0.1 % ()?? 01/19/2023 15:26 Baso % 0.9 % ()?? 01/19/2023 15:26 Imm Gran 0.4 % ()?? 01/19/2023 15:26 Abs. Imm Gran 0.1 k/mm3 ()?? 01/19/2023 15:26 ?? CHEM GENERAL Sodium 134 mmol/L ()?? 01/21/2023 06:09 Potassium 3.5 mmol/L (Low)?? 01/21/2023 06:09 Chloride 98 mmol/L ()?? 01/21/2023 06:09 Bicarbonate Level 24 mmol/L ()?? 01/21/2023 06:09 Anion Gap 12 ()?? 01/21/2023 06:09 Glucose Level 106 mg/dL (High)?? 01/20/2023 05:33 BUN 8 mg/dL ()?? 01/20/2023 05:33 Creatinine-Blood 0.8 mg/dL ()?? 01/21/2023 06:09 Estimated GFR Creatinine 120 ML/MIN/1.73 M2 ()?? 01/21/2023 06:09 Calcium 8.6 mg/dL ()?? 01/20/2023 05:33 Phosphorus 2.7 mg/dL ()?? 01/21/2023 06:09 Magnesium 1.9 mg/dL ()?? 01/21/2023 06:09 Protein, Total 6.4 Gm/dL ()?? 01/20/2023 05:33 Albumin 3.9 Gm/dL ()?? 01/20/2023 05:33 AG Ratio 1.6 ()?? 01/20/2023 05:33 Alkaline Phosphatase 103 units/L ()?? 01/20/2023 05:33 Lipase 15 units/L ()?? 01/19/2023 15:26 AST (SGOT) 72 units/L (High)?? 01/20/2023 05:33 ALT (SGPT) 67 units/L (High)?? 01/20/2023 05:33 Bilirubin, Total 2.0 mg/dL (High)?? 01/20/2023 05:33 Lactate 1.3 mmol/L ()?? 01/19/2023 18:27 ? HEME OTHER Hold Blue Top SPECIMEN DISCARDED AFTER 4 HOURS. ()?? 01/19/2023 15:26 ? MISC. CHEMISTRY Hold Green Top SPECIMEN DISCARDED AFTER 1 WEEK ()?? 01/19/2023 15:26 ? TOXICOLOGY/TDM Ethanol, Serum or Plasma NONE DETECTED mg/dL ()?? 01/19/2023 15:26 ? UA/URINALYSIS Appear/Color, Urine YELLOW ()?? 01/19/2023 18:01 Clarity CLEAR (N)?? 01/19/2023 18:01 Specific [place], Urine >1.030 (High)?? 01/19/2023 18:01 pH, Urine 5.5 ()?? 01/19/2023 18:01 Albumin, Urine 2+ (Abnormal)?? 01/19/2023 18:01 Glucose, Urine NEGATIVE (N)?? 01/19/2023 18:01 Ketones, Urine 4+ (Abnormal)?? 01/19/2023 18:01 Bilirubin, Urine NEGATIVE (N)?? 01/19/2023 18:01 Hemoglobin, Urine NEGATIVE (N)?? 01/19/2023 18:01 Nitrite, Urine NEGATIVE (N)?? 01/19/2023 18:01 Leukocyte, Urine NEGATIVE (N)?? 01/19/2023 18:01 Urobilinogen NORMAL mg/dL (N)?? 01/19/2023 18:01 WBC's, Urine 1 /HPF ()?? 01/19/2023 18:01 RBC's, Urine NONE SEEN /HPF ()?? 01/19/2023 18:01 Hyaline Cast 19 LPF (High)?? 01/19/2023 18:01 Granular Cast 9 /LPF ()?? 01/19/2023 18:01 Mucus MODERATE /LPF ()?? 01/19/2023 18:01 Hold Urine Culture Testing available 48 hours from time of collection. ()?? 01/19/2023 18:01 ?? URINE OTHER Est Creatinine Clearance 164.54 mL/min ()?? 01/21/2023 06:59 ? VIROLOGY COVID-19 by RT-PCR NEGATIVE ()?? 01/19/2023 17:46 ? 35??minutes spent on discharge reviewing case, IPOC/nursing rounds, discussing alcohol cessation and discharge instructions. * VastareItzel goss RN: PERFORM, MODIFY Event Display: Patient Education/Instruction Authored Date: [id number] Inpatient Adult Discharge Instructions [address] [address] Name: ODIN PETERSEN : 1990 Visit: 01/19/2023 19:08:00 Current Date: 01/21/2023 13:06 Account: [id number] Inpatient Adult Discharge Instructions We would like to thank you for allowing us to assist you with your healthcare needs. The following includes patient education materials and information regarding your injury/illness. Our entire staffstrives to provide an excellent experience for our patients and their families. PLEASE ENSURE YOU FOLLOW-UP PER THE INSTRUCTIONS BELOW! ?? YOUR OPINION IS IMPORTANT TO US! Please complete the survey you may receive by mail or email. Your feedback will be used to make improvements to the healthcare experiences of our patients and their families. Surveys are administered by [employer] ?? If further treatment with your primary care physician or another doctor is recommended, it is important for you to keep the appointment. Call your primary care physician or return to the Emergency Department immediately if your condition worsens, fails to improve, or new symptoms develop. If you need to find a doctor, you can call [facility] for a referral at [phone] or toll free at [phone]) or log in to [email or web address].. ?? You can view and manage your care through the patient portal or by using a health care cris of your choosing. [employer] is a website that allows you to securely view your medical information including your hospital discharge summary, office visit summaries, medications and follow-up visits. You can also request appointments, renew medications, and request access to your medical information using a health care cris of your choosing, or just ask a question. You can enroll at [email or web address] or register during your next office visit. You have been discharged from [facility], Patient Care Unit: Med Surg. If you have any questions regarding these instructions after you leave, please call us and we will be happy to assist you. [facility] Your Care Team Attending Physician Almas Hutton DO Discharging Providers Almas Hutton DO Reason for Your Visit General medical Your Diagnosis Alcohol withdrawal Delirium tremens General medical HTN (hypertension) Hypomagnesemia Hypophosphatemia Metabolic acidosis Mood disorder Transaminitis Tests Performed Below is a partial list of the tests performed during your hospitalization. You may have had other tests and procedures not included in this list. Please discuss all test results with your provider. CBC CBC w/ Differential Comprehensive Metabolic Panel COVID-19 (Novel Coronavirus), Rapid PCR Creatinine Electrolytes Ethanol Level Hold Blue Top Tube HOLD GREEN TUBE Lactate Level Lactic Acid Level Lipase Magnesium Level Phosphorus Level Urinalysis w/hold for Urine Culture URINE MICROSCOPIC Primary Care Provider Yrn Sanchez Advance Directive . Discharge Vitals Temperature: 98.6 DegF Height: 195 cm Pulse Rate:??92 bpm??High Weight: 123 kg Respiratory Rate: 18 br/min Body Mass Index:??32.35 kg/m2??Critical Systolic Blood Pressure:??143 mm Hg??High Body surface area: 2.58 Diastolic Blood Pressure:??96 mm Hg??High ?? Oxygen Saturation: 99 % ?? Studies Pending All tests and labs ordered during this hospital stay have been completed unless listed below. Please discuss all pending results with your provider listed above in these instructions. ?? Add On Lab Order What to do next Instructions From Your Doctor Follow up with your primary care provider, Yrn Bui, in 1 week if possible Continue to abstain from alcohol. Your liver function tests are improving and should continue to improve if you stay away from alcohol. Yrn Bui can start you on medication to help with abstaining from alcohol when you see him asyour liver function will be at your baseline Return to the ED if you experience similar withdrawal symptoms in the future ?? Discharge Orders You Need to Schedule the Following Appointments Follow Up with??Yrn Sanchez Where: [address] [place] [address]- Discharge Medications PETERSEN, SEAN :1990 Visit Date:01/19/2023 Medications: Please continue your medications until treatment is completed or stopped by your provider. Medications not listed below should be discontinued. Discuss any questions related to medications with your provider. What How Much When Instructions Next Dose Changed BuPROpion (buPROPion 300 mg/ 24 hours (XL) oral tablet, extended release) 1 tab(s) Oral Daily 01/22 Changed Lisinopril (lisinopril 10 mg oral tablet) 1 tab(s) Oral Daily 01/22 Changed Mirtazapine (mirtazapine 15 mg oral tablet) 1 tab(s) Oral Daily at Bedtime 01/22 Unchanged Amphetamine-Dextroamphetamine (Adderall 10 mg oral tablet) 1 tab(s) Oral Daily in the morning 01/22 ?? What How Much When Comments Stop Taking Amlodipine (amLODIPine 10 mg oral tablet) 1 tab(s) Oral Daily stop taking Stop Taking Escitalopram (Lexapro 20 mg oral tablet) 1 tab(s) Oral Daily stop taking Test Results Below is a partial list of the most recent Laboratory test results done prior to this discharge. You may have had other tests and procedures not included in this list. Please discuss all test resultswith your provider. Est Creatinine Clearance - 164.54 mL/min (01/21/2023) CBC (01/21/2023) ???WBC - 5.0 k/mm3???RBC - 4.07 m/mm3???Hgb - 12.9 Gm/dL???Hct - 35.8 %???MCV - 88.0 femtoliters???MCH - 31.7 pg???MCHC - 36.0 g/dL???Platelet Count - 59 k/mm3???RDW-SD - 41.9 femtoliters???MPV - 11.4 femtoliters???Nucleated RBC (Automated) - 0.0 #/100 WBC'S???Abs. NRBC - 0.0 k/mm3 CBC w/ Differential (01/19/2023) ???WBC - 14.5 k/mm3???RBC - 5.45 m/mm3???Hgb - 17.2 Gm/dL???Hct - 47.6 %???MCV - 87.3 femtoliters???MCH - 31.6 pg???MCHC - 36.1 g/dL???Platelet Count - 217 k/mm3???RDW-SD - 42.3 femtoliters???MPV - 10.7 femtoliters???Nucleated RBC (Automated) - 0.0 #/100 WBC'S???Abs. NRBC - 0.0 k/mm3???Abs. Neut - 12.6 k/mm3???Abs. Lymph - 0.9 k/mm3???Abs. [place] - 0.9 k/mm3???Abs. Eo - 0.0 k/mm3???Abs. Baso - 0.1 k/mm3???Neut % - 86.4 %???Lymph % - 6.3 %???[place] % - 5.9 %???Eos % - 0.1 %???Baso % - 0.9 %???Imm Gran - 0.4 %???Abs. Imm Gran - 0.1 k/mm3 Comprehensive Metabolic Panel (01/20/2023) ???Sodium - 135 mmol/L???Potassium - 3.4 mmol/L???Chloride - 99 mmol/L???Bicarbonate Level - 23 mmol/L???Anion Gap - 13???Glucose Level - 106 mg/dL???BUN - 8 mg/dL???Creatinine-Blood - 0.7 mg/dL???Estimated GFR Creatinine - 125 ML/MIN/1.73 M2???Calcium - 8.6 mg/dL???Protein, Total - 6.4 Gm/dL???Albu min - 3.9 Gm/dL???AG Ratio - 1.6???Alkaline Phosphatase - 103 units/L???AST (SGOT) - 72 units/L???ALT (SGPT) - 67 units/L???Bilirubin, Total - 2.0 mg/dL COVID-19 (Novel Coronavirus), Rapid PCR (01/19/2023) ???COVID-19 by RT-PCR - NEGATIVE Creatinine (01/21/2023) ???Creatinine-Blood - 0.8 mg/dL???Estimated GFR Creatinine - 120 ML/MIN/1.73 M2 Electrolytes (01/21/2023) ???Sodium - 134 mmol/L???Potassium - 3.5 mmol/L???Chloride - 98 mmol/L???Bicarbonate Level - 24 mmol/L???Anion Gap - 12 Ethanol Level (01/19/2023) ???Ethanol, Serum or Plasma - NONE DETECTED Hold Blue Top Tube (01/19/2023) ???Hold Blue Top - SPECIMEN DISCARDED AFTER 4 HOURS. HOLD GREEN TUBE (01/19/2023) ???Hold Green Top - SPECIMEN DISCARDED AFTER 1 WEEK Lactate Level (01/19/2023) ???Lactate - 1.3 mmol/L Lactic Acid Level (01/19/2023) ???Lactate - 3.1 mmol/L Lipase (01/19/2023) ???Lipase - 15 units/L Magnesium Level (01/21/2023) ???Magnesium - 1.9 mg/dL Phosphorus Level (01/21/2023) ???Phosphorus - 2.7 mg/dL Urinalysis w/hold for Urine Culture (01/19/2023) ? ?Appear/Color, Urine - YELLOW? ?Clarity - CLEAR? ?Specific [place], Urine - >1.030? ?pH, Urine- 5.5???Albumin, Urine - 2+???Glucose, Urine - NEGATIVE???Ketones, Urine - 4+???Bilirubin, Urine - NEGATIVE???Hemoglobin, Urine - NEGATIVE???Nitrite, Urine - NEGATIVE???Leukocyte, Urine - NEGATIVE???U robilinogen - NORMAL???Hold Urine Culture - Testing available 48 hours from time of collection. URINE MICROSCOPIC (01/19/2023) ???WBC's, Urine - 1 /HPF???RBC's, Urine - NONE SEEN???Hyaline Cast - 19 LPF???Granular Cast - 9 /LPF???Mucus - MODERATE Allergies (NKA means No Known Allergies) NKA Problems Active Problems??(3) Anxiety?? Hypertension?? Obese class I?? Education Materials Below is the list of Educational Leaflet Providered with your Discharge Instructions. Valuables and Belongings I fully understand and agree that [facility] accepts no responsibility for all my personal property including clothing, toilet articles, radios, jewelry, dentures, hearing aids, rings, money, or any other property that is in my possession or is brought to me after admission. I understand certain valuables may be placed in a hospital safe for a short period of time. I understand that the hospital is not liable for loss or damage due to accident, fire, or other natural occurrence while said property is in the safe. I accept full responsibility for any personal property that I keep with me, and will not hold the hospital responsible in case of loss or disappearance. I acknowledge that i have been encouraged to send valuables and belongings home. ?? Review of Valuable and Belonging List: With patient, With witness Date for Pt to Sign Valuables/Belongings: 01/19/23 20:42:00 ?? Other Discharge Information ? Pulmonary Rehab Status?? Pulmonary Rehab Discharge Status?? Respiratory Rate: 18 br/min ? Common Emergency Awareness Tips IS IT A STROKE? Act FAST and Check for these signs: FACE Does the face look uneven? ARM Does one arm drift down? SPEECH Does their speech sound strange? TIME Call at any sign of stroke ?? Heart Attack Signs Chest discomfort: Most heart attacks involve discomfort in the center of the chest and lasts more than a few minutes, or goes away and comes back. It can feel like uncomfortable pressure, squeezing, fullness or pain. Discomfort in upper body: Symptoms can include pain or discomfort in one or both arms, back, neck, jaw or stomach. Shortness of breath: With or without discomfort. Other signs: Breaking out in a cold sweat, nausea, or lightheaded. Remember, MINUTES DO MATTER. If you experience any of these heart attack warning signs, call to get immediate medical attention! ?? Smoking can increase your chances of developing chronic health problems and can cause harmful effects to other family members in your house. If you smoke, you are strongly encouraged to quit. Please call [facility] at [phone] or [phone] ([phone]) or log in to [email or web address] for referrals to smoking cessation programs. ?? 801 Suicide & Crisis Lifeline is available 14/03 if you or someone you know needs to find a reason to keep living. By calling 916 you'll be connected to a skilled, trained counselor at a crisis center in your area. INPATIENT DISCHARGE INSTRUCTIONS SIGNATURE PAGE ODIN PETERSEN Location:[facility] Registration Date and Time:01/19/2023 19:08 EDT Primary Care Physician: Yrn Sanchez, Attending Physician: Almas Hutton DO, I ODIN PETERSEN, have received the above patient education materials/instructions and have verbalized understanding. If ambulance or transport services are being used I further acknowledge being given a choice of service. ?? If you need to contact me, please call me at this number: . Patient/Endoscopy Tech Name: Patient/Endoscopy Tech Signature: Relationship to Patient: Witness Name/Signature: Date: Patient Care team information Care Team Personnel Name: Yrn Sanchez Position: Reference Physician Member Role: PCP Address: Address: [address] [place] [address]- Name: Chapin Cardoso MD Position: [facility] ED Medicine MD Member Role: Referring Physician Address: Address: [address] [facility] [place], [place] [address] Name: Katherin Sparrow Position: [facility] ED OA Member Role: Molecular Biologist Name: Amara Rick RN Position: [facility] ED RN W/OE and Tasks Member Role: Patient Care Provider Name: Mackenzie Parham Position: [facility] Associate Professional Member Role: Physician Warehouse Record Clerk Address: Address: [address] [place] [address] [place] [address]- Care Team Related Persons Name: ELIJAH PETERSEN Address: home [address] [place] [id number] Name: ZENA PETERSEN Address: [address] [address]
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
--- OUTSIDE RECORDS SUMMARY | 2023-06-14 22:19 | XMS_ITS | Continuity of Care Document ---
Author Name Unknown Organization [facility] Address [address] [place] [address] [address] [place] [address]- Care Team Providers Care Technical Marketing Engineer Name Role Phone Karri FERRER, Kerwin Choi Primary Care Physician Encounter [facility] Date(s): 03/23/21 - 04/22/21 [facility] [address] [place] [address]- Allergies, Adverse Reactions, Alerts Substance Reaction Severity [...]
--- OUTSIDE RECORDS SUMMARY | 2023-06-14 22:19 | XMS_ITS | Continuity of Care Document ---
Author Name Unknown Organization [facility] Address [address] [place] [address]- Care Team Providers Care Administrative And Program Specialist Name Role Phone Yrn Sanchez Primary Care Physician [phone] Encounter [facility] Date(s): 05/28/22 - 06/27/22 [facility] [address] [place] [address]- [place] Allergies, Adverse Reactions, Alerts No Known Allergies Medications amLODIPine 10 mg oral tablet 10 [...] Date: 02/19/21 Status: Ordered Problem List Condition Confirmation Course Effective Dates Status Health atus Informant Anxiety Confirmed Active Hypertension Confirmed Active Social History Social History Type Response Smoking Status Never smoker; Tobacc o user in household: No entered on: 01/06/17 Sex Patient Care team information Personnel Name: Yrn Sanchez Address: Address: [address] [place] [id number]
--- OUTSIDE RECORDS SUMMARY | 2023-06-14 22:19 | XMS_ITS | Continuity of Care Document ---
Author Name Unknown Organization [facility] Address [address] [place], [place] [address]i ve [address] [place] [address]- Care Team Providers Care Insurance Agents Supervisor Name Role Phone Karri FERRER, Kerwin Choi Primary Care Physician Encounter [facility] [place] Date(s): 04/10/21 - 04/17/21 [facility] [address] [place] [address]- Attending Physician: Delia FERRER, Fernando Diallo Allergies, Adverse Reactions, Alerts Substance Reaction Severity [...] Status Inform ant Anxiety(Confirmed) Active Hypertension(Confirmed) Active Vital Signs Most recent to oldest [Reference Range]: 1 Height 196.5 cm (04/10/21 3:33 PM) Weight 113 kg (04/10/21 3:33 PM) Body Mass Index [18.5-24.99] 29.27 *H* (04/10/21 3:33 PM) Temperature [96.8-100.4 DegF] 98.1 DegF (04/10/21 3:33 PM) Social History Social History Type Response Smoking Status Never smoker; Tobacc o user in household: No entered on: 01/06/17 Sex
--- OUTSIDE RECORDS SUMMARY | 2023-06-14 22:19 | XMS_ITS | Continuity of Care Document ---
Author Name Unknown Organization [facility] Address [address] [place] [address]- Care Team Providers Care Drying Machine Operator Package Yarns Name Role Phone Yrn Sanchez Primary Care Physician [place] [facility] 01/05/23 - 02/04/23 [facility] [address] [place] [address]- Allergies, Adverse Reactions, Alerts No Known Allergies [...] Confirmed Active Obese class I Confirmed Active Social History Social History Type Response Smoking Status Never smoker; Tobacc o user in household: No entered on: 01/06/17 Sex Patient Care team information Care Team Personnel Name: Yrn Sanchez Position: Reference Physician Member Role: PCP Address: Address: [address] [place] [address] Care Team Related Persons Name: ELIJAH PETERSEN Address: [address] [place] [address] Name: ZENA PETERSEN Address: [address] [place] [address]
--- OUTSIDE RECORDS SUMMARY | 2023-06-14 22:19 | XMS_ITS | Continuity of Care Document ---
Author Name Unknown Organization [facility] Address [address] [place] [address] [address] [place] [address]- Care Team Providers Care Training Designer Name Role Phone Yrn Sanchez Primary Care Physician Encounter [facility] Date(s): 06/05/21 - 07/05/21 [facility] [address] [place] [address]- Attending Physician: Alf Lafleur Admitting Physician: AdmAlf grigsby Referring Physician: Admtr ArLakshmi Allergies, Adverse Reactions, Alerts Substance Reaction Severity [...]
--- NOTE | 2023-06-14 22:21 | PC.NURSE ---
pt alert and oriented x4. seizure pads in place, IV placed, monitoring tech on. pt reports her last drank 2 hours ago, enough to curb the craving 1 sleeve of 100 proof vodka. pt trying to detox. pt has no c/o pain or withdrawal at this time but feels it coming on. pt reports he was last here a few months ago for withdrawal and was placed in the ICU. pt reports he has never had a seizure during withdrawal but does experience n/v, abdominal pain, termors.
[2023-06-14 22:32] LABS: Basophils Absolute Auto 0.1 X10*3/uL (0.0-0.2); Basophils Percent Auto 0.9 % (0-2); Eosinophils Absolute Auto 0.1 X10*3/uL (0.0-0.4); Eosinophils Percent Auto 0.9 % (0-4); Hematocrit 48.9 % (42.0-52.0); Hemoglobin 17.6 g/dl (14.0-18.0); Imm Gran Abs Auto 0.04 X10*3/uL (0.00-0.03); Imm Gran Pct Auto 0.3 % (0.0-0.4); Lymphocytes Percent Auto 38.5 % (20-40); MANUAL DIFF FLAG SCAN; Mean Corpuscular Hemoglobin 29.7 pg (27.0-33.0); Mean Corpuscular Volume 82.6 fL (80.0-98.0); Mean Platelet Volume 11.3 fL (9.4-12.4); Monocytes Absolute Auto 1.5 X10*3/uL (0.1-1.2); Monocytes Percent Auto 11.7 % (2-11); Neutrophils Absolute Auto 6.2 x10*3/uL (2.0-8.3); Neutrophils Percent Auto 47.7 % (45-73); Platelet Count 239 X10*3/uL (160-400); Red Blood Count 5.92 X10*6/uL (4.60-5.80); SCAN SMEAR FLAG 1; White Blood Count 13.1 X10*3/uL (4.8-10.8)
[2023-06-14 22:48] LABS: Alanine Aminotransferase 128 U/L (0-40); Albumin Level 4.7 g/dL (3.5-5.0); Alkaline Phosphatase 153 U/L (39-117); Anion Gap 21 (12-20); Aspartate Amino Transferase 175 U/L (5-37); Bilirubin Total 0.8 mg/dL (0.0-1.0); Blood Urea Nitrogen 23 mg/dL (9-16); Calcium 9.3 mg/dL (8.4-10.2); Carbon Dioxide 19 mmol/L (22-29); Chloride 101 mmol/L (96-108); Creatinine Clr Calc Pharmacy 145.4; Estimated Glomerular Filt Rate > 60; Ethanol 375 mg/dL; Glucose Random 119 mg/dL (60-115); Potassium 3.8 mmol/L (3.3-5.1); Sodium 137 mmol/L (135-145); Total Protein 8.4 g/dL (6.5-8.0)
[2023-06-14 23:10] LABS: SLIDE REVIEW VERIFIED
[2023-06-14] MEDS: LORazepam 1 MG TABLET 2 MG PO (23:17)
[2023-06-15 00:09] LABS: Amphetamine Screen Urine Not Detected (Not Detect); Barbiturates, Urine POSITIVE (Not Detect); Benzodiazepines Screen Urine Not Detected (Not Detect); Cannabinoid Screen Urine Not Detected (Not Detect); Cocaine Screen Urine Not Detected (Not Detect); Fentanyl, urine Not Detected (Not Detect); Opiate Screen Urine Not Detected (Not Detect); Phencyclidine Screen Urine Not Detected (Not Detect)
[2023-06-15 00:46] VITALS: BP 129/72; PULSE 109; RESP 19; O2SAT 94
--- NOTE | 2023-06-15 01:01 | PC.NURSE ---
pt resting in bed, on the phone with his . pt diaphoretic, tachy at 115 bpm, reports some nausea, mild visual disturbances, mild tremors, mild headache.
[2023-06-15 02:41] LABS: Lipase 15 U/L (8-78)
--- NOTE | 2023-06-15 03:07 | ED.ALCOHOL ---
HPI - Alcohol General Chief Complaint: ETOH/Substance Use Stated Complaint: alcohol withdraw Time Seen by Provider: 06/15/23 01:00 Source: patient Mode of arrival: ambulatory History of Present Illness HPI narrative: 32-year-old male who self reports that he has been attempting several rehab facilities in the most recent of which was in [place] approximately 1-2 weeks ago. Patient's last drink was prior to presentation while at his parents house. He denies any suicidal ideation but reports that he has been nauseous but not yet vomited. He states he feels tremulous and denies having ever experience any seizures but states he has had in hallucinations previously. Related Data Home Medications Medication Instructions Recorded Confirmed lisinopril 10 mg tablet 1 tab PO DAILY 05/16/22 02/11/23 acamprosate 333 mg tablet,delayed 666 mg PO TID 02/11/23 02/11/23 release bupropion HCl 300 mg 24 hr tablet, 300 mg PO DAILY 02/11/23 02/11/23 extended release clonidine HCl 0.2 mg tablet 0.2 mg PO Q8H PRN Anxiety 02/11/23 02/11/23 folic acid 1 mg tablet 1 mg PO DAILY 02/11/23 02/11/23 mirtazapine 15 mg tablet 15 mg PO BEDTIME 02/11/23 02/11/23 multivitamin with folic acid 400 1 tab PO DAILY 02/11/23 02/11/23 mcg tablet (Daily-Roma (with folic acid)) naltrexone microspheres 380 mg 380 mg IM QMONTH 02/11/23 02/11/23 intramuscular suspension,extended release (Vivitrol) thiamine HCl (vitamin B1) 100 mg 100 mg PO DAILY 02/11/23 02/11/23 tablet Previous Rx's Medication Instructions Recorded omeprazole 20 mg capsule,delayed 20 mg PO DAILY #30 caps 02/15/23 release potassium, sodium phosphates 280 1 packet PO BID #10 ea 02/15/23 mg-160 mg-250 mg oral powder packet (Phos-NaK) Allergies Allergy/AdvReac Type Severity Reaction Status Date / Time No Known Allergies Allergy Verified 05/16/22 18:15 Review of Systems Review of Systems: Pertinent positives and negatives as stated in HPI PMFSH Past Medical History Source: nursing notes reviewed Medical History Hypertension Depression Anxiety Social History Social History Household Members: Spouse Housing: Apartment Alcohol intake: current Alcohol intake frequency: 3 or more drinks per day Alcohol type: hard liquor Patient Tobacco Use Status: Never used Tobacco Smoked in Last 30 Days: No Use of substances other than those prescribed or required for medical reasons: No Advance Directives: No Advance Directives Information Provided: No service: No Physical Exam ED Vital Signs: Vital Signs - 24 hr 06/14/23 22:06 06/14/23 22:14 06/15/23 00:46 Temperature 98.5 F 99.1 F Pulse Rate 135 H 134 H 109 H Respiratory Rate 20 25 H 19 Blood Pressure 151/103 H 157/95 H 129/72 Pulse Oximetry 95 95 94 Oxygen Delivery Method Room Air Room Air Room Air BMI result Body Mass Index 29.6 VITAL SIGNS: Reviewed. GENERAL: Well developed, well nourished, in no acute distress. HEAD: Normocephalic/atraumatic EYES: PERRLA, EOMI EARS: Ext canals without abnormality NOSE: Nares patent bilateral OROPHARYNX: no oral lesions noted, posterior pharynx clear NECK: Supple, no adenopathy LUNGS: Normal breath sounds. No adventitious sounds or accessory muscle use. SpO2<94> CARDIOVASCULAR: Regular rate and rhythm without noted murmurs ABDOMEN: Soft, non-tender, non-distended with bowel sounds. MUSCULOSKELETAL: No tenderness, deformities, or effusions noted on gross inspection. EXTREMITIES: No cyanosis, clubbing or edema. SKIN: Inspection of the skin reveals no rashes NEUROLOGIC: Alert and oriented x 4. Strength and sensation to light touch were grossly intact x 4. Medical Decision Making Medical Decision Making MDM Narrative: 32-year-old male with history and clinical presentation consistent with significant alcohol use/abuse disorder with multiple attempts to successfully maintain sobriety after leaving rehab facilities. He now presents clinically intoxicated and based on history also intoxicated. Patient is requesting detox and will pursue this, but at this time on review investigations hematologic indices are significant for a stress leukocytosis of 13.1 without anemia or thrombocytopenia. Chemistry indices are not significant for TIFFANIE but do demonstrate an alcohol hepatitis with mild alcoholic ketoacidosis. This time there is no evidence either objectively with labs or on clinical exam of pancreatitis. Patient was placed on a phenobarbital protocol, CIWA, and given 1 L of IV fluids. 0310: I discussed case with the inpatient hospitalist who accepts admission. Differential Diagnosis Differential Diagnoses: The differential diagnosis associated with the presentation includes Please see the discussion above Admission/Observation Consideration of admission/observation: Escalation of care including admission/observation considered Please see the discussion above Consult Healthcare Provider Management of the patient was discussed with: Hospitalist Please see the discussion above Lab Data MDM Lab Attestation statement: I reviewed the patient's lab results. Please see the discussion above 06/14/23 22:28 06/14/23 22:28 Labs: Lab Results 06/14/23 06/14/23 Range/Units 22:28 23:52 WBC 13.1 H (4.8-10.8) X10*3/uL RBC 5.92 H D (4.60-5.80) X10*6/uL Hgb 17.6 D (14.0-18.0) g/dl Hct 48.9 D (42.0-52.0) % MCV 82.6 (80.0-98.0) fL MCH 29.7 (27.0-33.0) pg MCHC 36.0 (31.0-36.0) g/dl RDW 13.0 (11.0-16.0) % Plt Count 239 D (160-400) X10*3/uL MPV 11.3 (9.4-12.4) fL Immature Gran % (Auto) 0.3 (0.0-0.4) % Neut % (Auto) 47.7 (45-73) % Lymph % (Auto) 38.5 (20-40) % [place] % (Auto) 11.7 H (2-11) % Eos % (Auto) 0.9 (0-4) % Baso % (Auto) 0.9 (0-2) % Lymph # (Auto) 5.0 H (1.2-4.9) X10*3/uL [place] # (Auto) 1.5 H (0.1-1.2) X10*3/uL Eos # (Auto) 0.1 (0.0-0.4) X10*3/uL Baso # (Auto) 0.1 (0.0-0.2) X10*3/uL Abs Immat Gran (auto) 0.04 H (0.00-0.03) X10*3/uL Absolute Neuts (auto) 6.2 (2.0-8.3) x10*3/uL Absolute Nucleated RBC 0.000 (0.0-0.012) X10*3/uL Nucleated RBC % (auto) 0.0 (0.0-0.2) /100WBC Smear Tech's Comments VERIFIED Sodium 137 (135-145) mmol/L Potassium 3.8 (3.3-5.1) mmol/L Chloride 101 (96-108) mmol/L Carbon Dioxide 19 L (22-29) mmol/L Anion Gap 21 H (12-20) BUN 23 H (9-16) mg/dL Creatinine 1.01 (0.5-1.4) mg/dL Estim Creat Clear Calc 145.4 Estimated GFR > 60 Random Glucose 119 H (60-115) mg/dL Calcium 9.3 (8.4-10.2) mg/dL Total Bilirubin 0.8 (0.0-1.0) mg/dL AST 175 H (5-37) U/L ALT 128 H (0-40) U/L Alkaline Phosphatase 153 H (39-117) U/L Total Protein 8.4 H (6.5-8.0) g/dL Albumin 4.7 (3.5-5.0) g/dL Lipase 15 (8-78) U/L Urine Opiates Screen Not Detected (Not Detect) Urine Fentanyl Screen Not Detected (Not Detect) Ur Barbiturates Screen POSITIVE H (Not Detect) Ur Phencyclidine Scrn Not Detected (Not Detect) Ur Amphetamines Screen Not Detected (Not Detect) U Benzodiazepines Scrn Not Detected (Not Detect) Urine Cocaine Screen Not Detected (Not Detect) U Marijuana (THC) Screen Not Detected (Not Detect) Ethyl Alcohol 375 H* mg/dL Independent Interpretation I performed an independent interpretation of an: EKG Interpretation: Sinus tachycardia, HR-136, no STEMI, OR/QRS/QTC is within normal limits. External Record Review External record reviewed: Inpatient record and Outpatient record Chronic Conditions Patient?s care impacted by: Hypertension and Other Depression Medications Administered Discontinued Medications Generic Name Dose Route Start Last Admin Trade Name Freq PRN Reason Stop Dose Admin Lorazepam 2 mg 06/14/23 23:13 06/14/23 23:17 Lorazepam 1 Mg Tablet PO 06/14/23 23:14 2 mg ONCE ONE Administration Critical Care Time Critical Care Time Critical Care Time: Yes Total Critical Care Time: 30 Attestation: I personally attest to this time spent taking care of the patient. Discharge Plan Discharge Clinical Impression: Alcoholic hepatitis, Alcoholic ketoacidosis Patient Disposition: Admitted As Inpatient Prescriptions: No Action lisinopril 10 mg tablet 1 tab PO DAILY thiamine HCl (vitamin B1) 100 mg tablet 100 mg PO DAILY folic acid 1 mg tablet 1 mg PO DAILY mirtazapine 15 mg tablet 15 mg PO BEDTIME bupropion HCl 300 mg tablet extended release 24 hr 300 mg PO DAILY acamprosate 333 mg tablet,delayed release (DR/EC) 666 mg PO TID Vivitrol 380 mg suspension,extended rel recon 380 mg IM QMONTH multivitamin with folic acid [Daily-Roma (with folic acid)] 400 mcg tablet 1 tab PO DAILY clonidine HCl 0.2 mg tablet 0.2 mg PO Q8H PRN (Reason: Anxiety) omeprazole 20 mg capsule,delayed release(DR/EC) 20 mg PO DAILY Qty: 30 0RF potassium, sodium phosphates [Phos-NaK] 280-160-250 mg powder in packet 1 packet PO BID Qty: 10 0RF
[2023-06-15 03:33] VITALS: BP 144/85; PULSE 106; RESP 17; O2SAT 94
[2023-06-15] MEDS: 0.9 % Sodium Chloride 1,000 ML 999 ML IV (03:36)
--- NOTE | 2023-06-15 03:36 | PM.IMHP ---
History of Present Illness Date of Service: 06/15/23 Chief Complaint: Alcohol use disorder This is a 32-year-old male with pertinent history of alcohol use disorder, essential hypertension, mood disorder who presents to the emergency department for concerns of alcohol withdrawal. Patient states that over the last 1 and half years he has been drinking extensively. He drinks vodka every day. He has been through several rehab facilities but he is unable to quit. His last drink was on the day of presentation. Denies alcohol withdrawal seizures but does have a history of delirium tremens. No suicidal or homicidal ideations. States he is feeling sweaty, anxious and has nausea and tremors since his last drink. No fever, chills, chest discomfort, palpitations, shortness of breath, abdominal pain, changes in urinary or bowel habits. In the emergency department, patient was initiated on phenobarb protocol Review of Systems Constitutional: Constitutional: Reports chills and Reports lethargy Cardiovascular: Cardiovascular: Reports no additional cardiovascular complaints Respiratory: Respiratory: Reports no additional respiratory complaints Gastrointestinal: Gastrointestinal: Reports nausea Genitourinary: Genitourinary: Reports no additional male genitourinary complaints Neurologic: Reports tremor(s) Psychiatric: Psychiatric: Reports anxiety [facility] Medical History Hypertension Depression Anxiety Pertinent family history: No family history of early CAD Social History Household Members: Spouse Housing: Apartment Alcohol intake: current Alcohol intake frequency: 3 or more drinks per day Alcohol type: hard liquor Patient Tobacco Use Status: Never used Tobacco Smoked in Last 30 Days: No Use of substances other than those prescribed or required for medical reasons: No Advance Directives: No Advance Directives Information Provided: No Nutrition Risks: No Nutritional Risk service: No Meds Allergies Allergy/AdvReac Type Severity Reaction Status Date / Time No Known Allergies Allergy Verified 05/16/22 18:15 Active Medications: Current Medications Sodium Chloride (Ns) 1,000 mls @ 999 mls/hr IV .Q1H1M DEVON Stop: 06/15/23 04:15 Last Admin: 06/15/23 03:36 Dose: 999 mls/hr Thiamine HCl 100 mg/ Sodium (Chloride) 101 mls @ 202 mls/hr IV ONCE ONE Stop: 06/15/23 03:41 Pharmacy Consult (Consult Rx Etoh Phenob Im/Po) 1 each MISCELLANE ONCE PRN; Protocol PRN Reason: Consult order Home Medications Medication Instructions Recorded Confirmed Last Taken Type lisinopril 10 mg tablet 1 tab PO DAILY 05/16/22 02/11/23 Unknown History acamprosate 333 mg tablet,delayed 666 mg PO TID 02/11/23 02/11/23 Unknown History release bupropion HCl 300 mg 24 hr tablet, 300 mg PO DAILY 02/11/23 02/11/23 Unknown History extended release clonidine HCl 0.2 mg tablet 0.2 mg PO Q8H PRN Anxiety 02/11/23 02/11/23 Unknown History folic acid 1 mg tablet 1 mg PO DAILY 02/11/23 02/11/23 Unknown History mirtazapine 15 mg tablet 15 mg PO BEDTIME 02/11/23 02/11/23 Unknown History multivitamin with folic acid 400 1 tab PO DAILY 02/11/23 02/11/23 Unknown History mcg tablet (Daily-Roma (with folic acid)) naltrexone microspheres 380 mg 380 mg IM QMONTH 02/11/23 02/11/23 2 Months Ago History intramuscular suspension,extended ~12/12/22 release (Vivitrol) thiamine HCl (vitamin B1) 100 mg 100 mg PO DAILY 02/11/23 02/11/23 Unknown History tablet Physical Exam Vital Signs and Narrative: Vital Signs: Last Vital Signs Temp 99.1 F 06/14/23 22:14 Pulse 106 H 06/15/23 03:33 Resp 17 06/15/23 03:33 BP 144/85 H 06/15/23 03:33 Pulse Ox 94 06/15/23 03:33 O2 Del Method Room Air 06/15/23 03:33 BMI result Body Mass Index 29.6 Middle-aged male lying in bed in no distress Neck supple, no JVD Tachycardic with regular rhythm, S1-S2 heard Regular breath sounds bilaterally, no wheezing or crackles appreciated Abdomen soft nontender, no guarding, no rigidity Patient is awake, alert and oriented to self, place, time and person ; no focal motor deficit Psych: Anxious No pedal edema Results Labs 06/14/23 22:28 06/14/23 22:28 Labs: Laboratory Results - last 24 hr 06/14/23 06/14/23 22:28 23:52 MCV 82.6 MCH 29.7 MCHC 36.0 RDW 13.0 Plt Count 239 D MPV 11.3 Immature Gran % (Auto) 0.3 Neut % (Auto) 47.7 Lymph % (Auto) 38.5 [place] % (Auto) 11.7 H Eos % (Auto) 0.9 Baso % (Auto) 0.9 Lymph # (Auto) 5.0 H [place] # (Auto) 1.5 H Eos # (Auto) 0.1 Baso # (Auto) 0.1 Abs Immat Gran (auto) 0.04 H Absolute Neuts (auto) 6.2 Absolute Nucleated RBC 0.000 Nucleated RBC % (auto) 0.0 Smear Tech's Comments VERIFIED Anion Gap 21 H Estim Creat Clear Calc 145.4 Estimated GFR > 60 Random Glucose 119 H Calcium 9.3 Total Bilirubin 0.8 AST 175 H ALT 128 H Alkaline Phosphatase 153 H Total Protein 8.4 H Albumin 4.7 Lipase 15 Urine Opiates Screen Not Detected Urine Fentanyl Screen Not Detected Ur Barbiturates Screen POSITIVE H Ur Phencyclidine Scrn Not Detected Ur Amphetamines Screen Not Detected U Benzodiazepines Scrn Not Detected Urine Cocaine Screen Not Detected U Marijuana (THC) Screen Not Detected Ethyl Alcohol 375 H* Assessment and Plan (1) Alcohol withdrawal: Status: Acute Plan This is a 32-year-old male with pertinent history of alcohol use disorder, essential hypertension, mood disorder who presents to the emergency department for concerns of alcohol withdrawal. #. Alcohol use disorder with concerns of alcohol withdrawal: Will admit patient with phenobarb protocol. Monitor CIWA. Initiating thiamine. Consulting Addiction Team and care team #. Elevated transaminases in the setting of above #. Essential hypertension: On lisinopril #. Mood disorder: Continue home mood stabilizers Med rec pending DVT prophylaxis: Lovenox Admit as inpatient and will require two night minimum hospital stay for close monitoring in a patient with alcohol withdrawal. Time Spent With Patient Time: Total time managing care of this patient today ____ minutes. Quality Stroke Does the patient have a stroke diagnosis?: No VTE Prior VTE?: No VTE Risk Level:: Medical - moderate - high VTE Device Contraindication: Treatment Not Indicated VTE Drug Contraindication: N/A - Med Ordered
[2023-06-15] MEDS: ondansetron HCL 4 MG/2 ML VIAL IVPUSH ×2 (04:01→18:21)
[2023-06-15] MEDS: Thiamine HCL 100 MG in 0.9 % Sodium Chloride 100 ML 202 MG IV (04:01)
[2023-06-15] MEDS: PHENobarbitaL sodium 130 MG/ML IM ONCE 428 MG IM (04:16)
[2023-06-15] MEDS: Lactated Ringers 1,000 ML 150 ML IVCONT (04:44)
--- NOTE | 2023-06-15 05:03 | PC.NURSE ---
pt resting comfortably with eyes closed, breathing even and unlabored. no apparent distress at this time. pt remains tachy-115 bpm
[2023-06-15 05:53] VITALS: BP 121/81; PULSE 97; RESP 17; TEMP 36.7; O2SAT 94
[2023-06-15 05:57] LABS: MANUAL DIFF FLAG NO
[2023-06-15 06:04] LABS: Basophils Absolute Auto 0.1 X10*3/uL (0.0-0.2); Basophils Percent Auto 0.8 % (0-2); Eosinophils Absolute Auto 0.1 X10*3/uL (0.0-0.4); Eosinophils Percent Auto 1.5 % (0-4); Hematocrit 42.2 % (42.0-52.0); Imm Gran Abs Auto 0.02 X10*3/uL (0.00-0.03); Imm Gran Pct Auto 0.2 % (0.0-0.4); Mean Corpuscular HGB Conc 35.5 g/dl (31.0-36.0); Mean Corpuscular Hemoglobin 29.9 pg (27.0-33.0); Mean Corpuscular Volume 84.2 fL (80.0-98.0); Mean Platelet Volume 11.3 fL (9.4-12.4); Monocytes Absolute Auto 1.1 X10*3/uL (0.1-1.2); Monocytes Percent Auto 11.9 % (2-11); Neutrophils Absolute Auto 3.8 x10*3/uL (2.0-8.3); Neutrophils Percent Auto 41.6 % (45-73); Platelet Count 138 X10*3/uL (160-400); Red Blood Count 5.01 X10*6/uL (4.60-5.80); Red Cell Distribution Width 13.1 % (11.0-16.0)
--- NOTE | 2023-06-15 06:11 | PC.NURSE ---
pt dropped to 65% O2 while sleeping, woke pt up, elevated HOB, pt continued to drop to 70-80%. placed pt on 3L NC. pt now maintaining O2
[2023-06-15 06:21] LABS: Anion Gap 17 (12-20); Blood Urea Nitrogen 18 mg/dL (9-16); Calcium 8.7 mg/dL (8.4-10.2); Carbon Dioxide 21 mmol/L (22-29); Chloride 102 mmol/L (96-108); Creatinine Clr Calc Pharmacy 190.7; Estimated Glomerular Filt Rate > 60; Glucose Random 82 mg/dL (60-115); Potassium 3.9 mmol/L (3.3-5.1); Sodium 136 mmol/L (135-145)
--- NOTE | 2023-06-15 06:28 | PC.NURSE ---
pt now awake and alert, talking on the phone with family. O2 removed at this time.
[2023-06-15] MEDS: PHENobarbitaL sodium 130 MG/ML VIAL IM Q3Hx2 320 MG IM ×2 (07:21→10:34)
[2023-06-15] MEDS: 0.9 % Sodium Chloride Flush 3 ML SYRINGE IVFLUSH ×2 (07:23→20:49)
[2023-06-15 09:07] LABS: Magnesium 1.9 mg/dL (1.6-2.6); Phosphorus 2.5 mg/dL (2.7-4.5)
--- NOTE | 2023-06-15 09:52 | PHA.MEDREC ---
Pharmacy Consult ? Medication Reconciliation Pharmacy has completed the medication reconciliation. REVIEWED MED REC DONE BY NURSING
[2023-06-15 10:03] VITALS: BP 153/86; PULSE 101; RESP 16; TEMP 36.9; O2SAT 95
--- NOTE | 2023-06-15 10:09 | MHC.CM.PN ---
CM ATTEMPTED TO SEE PT WHO WAS SLEEPING SITTING UP IN BED PT DID LIFT HIS HEAD WHEN HIS NAME WAS CALLED, HOWEVER STARTED SNORING BEFORE THE QUESTION COULD BE STATED CM WILL REVISIT WHEN PT IS MORE ALERT
--- NOTE | 2023-06-15 10:10 | PC.NURSE ---
MEDS NOT YET VERIFIED BY PHARMACY
--- NOTE | 2023-06-15 10:31 | PM.EVENT ---
Event Note Date of Service: 06/15/23 Event Note: Day hospitalist update S: anxious, wants to quit drinking O: Temp Pulse Resp BP Pulse Ox O2 Del Method 98.5 F 101 H 16 153/86 H 95 Room Air 06/15/23 10:03 06/15/23 10:03 06/15/23 10:03 06/15/23 10:03 06/15/23 10:03 06/15/23 10:03 Gen: anxious HEENT: sclera anicteric, moist mucus membranes Neck: supple Lungs: clear to auscultation bilaterally Heart: regular, tachycardic, no murmurs Abd: soft, non-tender, non-distended Ext: no edema Skin: warm/well-perfused Neuro: alert and oriented x3, no focal findings Psych: appropriate affect A/P: d1 32yo M with AUD, HTN, mood disorder admitted for EtOH withdrawal EtOH withdrawal AUD - phenobarbital taper, thiamine, folate, Addiction Medicine consultation EtOH hepatitis - monitor LFTs hypophosphatemia - replete HTN - lisinopril, amlodipine mood disorder - buspirone, bupropion, prazosin VTE ppx - LMWH dispo - TBD In my clinical judgment, the patient requires continued hospitalization for the following reasons: phenobarbital taper Time Spent With Patient Time: Total time managing care of this patient today ____ minutes.
[2023-06-15] MEDS: lisinopriL 10 MG TABLET PO (10:32)
[2023-06-15] MEDS: buPROPion HCl XL 300 MG TAB.ER.24H PO (10:32)
[2023-06-15] MEDS: Omeprazole 20 MG CAPSULE.DR PO (10:33)
[2023-06-15] MEDS: Folic Acid 1 MG TABLET PO (10:33)
[2023-06-15] MEDS: Enoxaparin Sodium 40 MG/0.4 ML SYRINGE SUBCUT (10:33)
[2023-06-15] MEDS: busPIRone HCl 10 MG TABLET 20 MG PO ×2 (10:33→20:48)
[2023-06-15] MEDS: amLODIPine Besylate 5 MG TABLET PO (10:33)
[2023-06-15] MEDS: Multivitamin TABLET 1 TAB PO (10:33)
[2023-06-15] MEDS: Thiamine HCL 100 MG TABLET PO (10:34)
[2023-06-15 15:37] VITALS: BP 163/87; PULSE 105; RESP 18; TEMP 36.4; O2SAT 95
[2023-06-15 19:08] VITALS: BP 137/87; PULSE 107; RESP 17; TEMP 36.4; O2SAT 95
[2023-06-15] MEDS: PHENobarbitaL 30 MG TABLET 60 MG PO (20:48)
[2023-06-15] MEDS: Sodium,Potassium Phosphates POWD.PACK 1 PACKET PO (20:48)
[2023-06-15] MEDS: Prazosin HCL 1 MG CAPSULE PO (20:48)
[2023-06-16] MEDS: cloNIDine HCL 0.2 MG TABLET PO (01:24)
[2023-06-16] MEDS: hydrOXYzine HCL 50 MG TABLET PO (01:24)
[2023-06-16 02:45] VITALS: RESP 18
[2023-06-16 03:28] VITALS: BP 118/59; PULSE 82; RESP 18; TEMP 36.1; O2SAT 97
[2023-06-16] MEDS: Omeprazole 20 MG CAPSULE.DR PO (05:54)
[2023-06-16 06:24] LABS: Hematocrit 36.1 % (42.0-52.0); Hemoglobin 12.9 g/dl (14.0-18.0); Mean Corpuscular HGB Conc 35.7 g/dl (31.0-36.0); Mean Corpuscular Hemoglobin 29.8 pg (27.0-33.0); Mean Corpuscular Volume 83.4 fL (80.0-98.0); Mean Platelet Volume 11.5 fL (9.4-12.4); Red Blood Count 4.33 X10*6/uL (4.60-5.80); Red Cell Distribution Width 12.9 % (11.0-16.0); White Blood Count 5.2 X10*3/uL (4.8-10.8)
[2023-06-16 06:25] LABS: INTERNATIONAL NORM RATIO 0.9 (0.9-1.1); Platelet Count 65 X10*3/uL (160-400)
[2023-06-16 06:36] LABS: Alanine Aminotransferase 78 U/L (0-40); Albumin Level 3.6 g/dL (3.5-5.0); Alkaline Phosphatase 115 U/L (39-117); Anion Gap 12 (12-20); Aspartate Amino Transferase 84 U/L (5-37); Bilirubin Total 2.5 mg/dL (0.0-1.0); Blood Urea Nitrogen 11 mg/dL (9-16); Carbon Dioxide 24 mmol/L (22-29); Chloride 99 mmol/L (96-108); Creatinine Clr Calc Pharmacy 190.7; Estimated Glomerular Filt Rate > 60; Glucose Random 95 mg/dL (60-115); Magnesium 1.8 mg/dL (1.6-2.6); Phosphorus 2.9 mg/dL (2.7-4.5); Potassium 3.5 mmol/L (3.3-5.1); Sodium 131 mmol/L (135-145); Total Protein 6.2 g/dL (6.5-8.0)
[2023-06-16 07:33] VITALS: BP 124/64; PULSE 70; RESP 18; TEMP 36.1; O2SAT 96
[2023-06-16] MEDS: PHENobarbitaL 30 MG TABLET 60 MG PO (08:19)
[2023-06-16] MEDS: Multivitamin TABLET 1 TAB PO (08:19)
[2023-06-16] MEDS: 0.9 % Sodium Chloride Flush 3 ML SYRINGE IVFLUSH (08:19)
[2023-06-16] MEDS: Sodium,Potassium Phosphates POWD.PACK 1 PACKET PO (08:19)
[2023-06-16] MEDS: buPROPion HCl XL 300 MG TAB.ER.24H PO (08:19)
[2023-06-16] MEDS: Thiamine HCL 100 MG TABLET PO (08:19)
[2023-06-16] MEDS: busPIRone HCl 10 MG TABLET 20 MG PO (08:20)
[2023-06-16] MEDS: lisinopriL 10 MG TABLET PO (08:20)
[2023-06-16] MEDS: Folic Acid 1 MG TABLET PO (08:20)
[2023-06-16] MEDS: amLODIPine Besylate 5 MG TABLET PO (08:21)
--- NOTE | 2023-06-16 12:24 | MHC.RECOVRN ---
Met with pt in 369 after consult placed to Addiction Medicine for alcohol use. Pt had presented to the ED and reported vomiting, tremors, headaches, and looking to go to ATS. Upon evaluation, pt was admitted for alcohol withdrawal. Pt sitting in bed, awake, alert, easily engages in conversation, familiar with t/w from previous consults. Pt reports recently completing treatment in [place] and returning to alcohol use immediately. Pt reports drinking 3 pints vodka daily x 1 week (since leaving tx). Pt had been in treatment since , having gone to [facility] for 30 days and then [place] for PHP and IOP. Pt reports this was longest period of abstinence since [age] years old, approx 85 days. Pt reports dabbling with alcohol use during treatment in [place] and returning to daily use when returning to [place]. Pt reports desire to restart naltrexone and engage in outpatient care. Pt has found AA to be helpful in the past and plans to reach out to peers for support. Discussed [facility], appt made for 06/20 at 9:30AM. Pt provided with written recovery resources as well as t/w contact information if needed. Denies other questions or concerns at this time. Discussed with Nati Torres APRN.
--- NOTE | 2023-06-16 13:33 | HO.PM.IMPN ---
Subjective Subjective Date of Service: 06/16/23 Interval History: tremulousness improved plts 65 Review of Systems Review of Systems: Yes all other systems are reviewed and are negative Physical Exam Vital Signs: Vital Signs: Last Vital Signs Temp 96.9 F 06/16/23 07:33 Pulse 70 06/16/23 07:33 Resp 18 06/16/23 07:33 BP 124/64 06/16/23 07:33 Pulse Ox 96 06/16/23 07:33 O2 Del Method Room Air 06/16/23 07:33 BMI result Body Mass Index 29.6 Gen: in no acute distress HEENT: sclera anicteric, moist mucus membranes Neck: supple Lungs: clear to auscultation bilaterally Heart: regular rate and rhythm, no murmurs Abd: soft, non-tender, non-distended Ext: no edema Skin: warm/well-perfused Neuro: alert and oriented x3, no focal findings Psych: appropriate affect Objective Data Active Medications Acetaminophen (Acetaminophen 325 Mg Tablet) 650 mg PO Q6H PRN PRN Reason: Pain, Mild (Pain Scale 1-3) Amlodipine Besylate (Amlodipine Besylate 5 Mg Tablet) 5 mg PO DAILY [facility]; Protocol Last Admin: 06/16/23 08:21 Dose: 5 mg Documented By: MANE Bupropion HCl (Bupropion Hcl Xl 300 Mg Tab.Er.24h) 300 mg PO DAILY [facility] Last Admin: 06/16/23 08:19 Dose: 300 mg Documented By: MANE Buspirone HCl (Buspirone Hcl 10 Mg Tablet) 20 mg PO BID [facility] Last Admin: 06/16/23 08:20 Dose: 20 mg Documented By: MANE Clonidine HCl (Clonidine Hcl 0.2 Mg Tablet) 0.2 mg PO BEDTIME PRN; Protocol PRN Reason: anxiety Last Admin: 06/16/23 01:24 Dose: 0.2 mg Documented By: NKECHI Folic Acid (Folic Acid 1 Mg Tablet) 1 mg PO DAILY [facility] Last Admin: 06/16/23 08:20 Dose: 1 mg Documented By: MANE Hydroxyzine HCl (Hydroxyzine Hcl 50 Mg Tablet) 50 mg PO BEDTIME PRN PRN Reason: insomnia Last Admin: 06/16/23 01:24 Dose: 50 mg Documented By: NKECHI Lisinopril (Lisinopril 10 Mg Tablet) 10 mg PO DAILY [facility]; Protocol Last Admin: 06/16/23 08:20 Dose: 10 mg Documented By: MANE Melatonin (Melatonin 3 Mg Tablet) 6 mg PO BEDTIME PRN PRN Reason: Insomnia Multivitamins/Vitamin C (Multivitamin Tablet) 1 tab PO DAILY [facility] Last Admin: 06/16/23 08:19 Dose: 1 tab Documented By: MANE Omeprazole (Omeprazole 20 Mg Capsule.Dr) 20 mg PO DAILY@0630 [facility] Last Admin: 06/16/23 05:54 Dose: 20 mg Documented By: NKECHI Ondansetron HCl (Ondansetron Hcl 4 Mg/2 Ml Vial) 4 mg IVPUSH Q8H PRN PRN Reason: Nausea and Vomiting Last Admin: 06/15/23 18:21 Dose: 4 mg Documented By: SILVANA Pharmacy Consult (Consult Rx Etoh Phenob Im/Po) 1 each MISCELLANE ONCE PRN; Protocol PRN Reason: Consult order Phenobarbital (Phenobarbital 30 Mg Tablet) 60 mg PO BID [facility]; Protocol Stop: 06/17/23 09:01 Last Admin: 06/16/23 08:19 Dose: 60 mg Documented By: MANE Phenobarbital (Phenobarbital 30 Mg Tablet) 30 mg PO BID [facility]; Protocol Stop: 06/19/23 09:01 Phenobarbital (Phenobarbital 30 Mg Tablet) 30 mg PO Q2H [facility]; Protocol Stop: 06/19/23 23:01 Potassium Phos/Sodium Phos (Sodium,Potassium Phosphates Powd.Pack) 1 packet PO BID [facility] Last Admin: 06/16/23 08:19 Dose: 1 packet Documented By: MANE Prazosin HCl (Prazosin Hcl 1 Mg Capsule) 1 mg PO BEDTIME [facility]; Protocol Last Admin: 06/15/23 20:48 Dose: 1 mg Documented By: NKECHI Sodium Chloride (0.9 % Sodium Chloride Flush 3 Ml Syringe) 3 ml IVFLUSH QSHIFT [facility] Last Admin: 06/16/23 08:19 Dose: 3 ml Documented By: MANE Thiamine HCl (Thiamine Hcl 100 Mg Tablet) 100 mg PO DAILY [facility] Last Admin: 06/16/23 08:19 Dose: 100 mg Documented By: MANE Labs 06/16/23 06:04 06/16/23 06:04 Labs: Laboratory Results - last 24 hr 06/16/23 06:04 MCV 83.4 MCH 29.8 MCHC 35.7 RDW 12.9 Plt Count 65 L D MPV 11.5 Absolute Nucleated RBC 0.000 Nucleated RBC % (auto) 0.0 PT 11.0 L INR 0.9 Anion Gap 12 Estim Creat Clear Calc 190.7 Estimated GFR > 60 Random Glucose 95 Calcium 9.0 Phosphorus 2.9 Magnesium 1.8 Total Bilirubin 2.5 H AST 84 H ALT 78 H Alkaline Phosphatase 115 Total Protein 6.2 L Albumin 3.6 Assessment and Plan (1) Alcoholic ketoacidosis: Status: Acute (2) Alcoholic hepatitis: Status: Acute Plan d2 32yo M with AUD, HTN, mood disorder admitted for EtOH withdrawal EtOH withdrawal AUD - continue phenobarbital taper, thiamine, folate, Addiction Medicine consulted, outpt f/u with [facility] EtOH hepatitis, mild - monitor LFTs; no indication for steroids alcoholic ketoacidosis - resolved after IV fluid hydration hypophosphatemia - repleted HTN - lisinopril, amlodipine mood disorder - buspirone, bupropion, prazosin VTE ppx - LMWH dispo - eventual home In my clinical judgment, the patient requires continued inpatient hospitalization for the following reasons: inpt EtOH withdrawal treatment Time Spent With Patient Time: Total time managing care of this patient today __40__ minutes. Quality Stroke Does the patient have a stroke diagnosis?: No VTE Prior VTE?: No VTE Risk Level:: Medical - moderate - high VTE Device Contraindication: Treatment Not Indicated VTE Drug Contraindication: N/A - Med Ordered
--- NOTE | 2023-06-16 15:13 | MHC.CM.PN ---
PT LIVES AT HOME WITH HIS AND IS INDEPENDENT WITH CARE PT WORKS, DRIVES, HAS NO DME AND NO SERVICES PCP AND HCP ON FILE DCP: HOME WITH RECOVERY TEAM RESOURCES/REFERRAL PT TO [facility] TRANSPORT
[2023-06-16 15:50] VITALS: BP 148/83; PULSE 98; RESP 18; TEMP 36.8; O2SAT 97
--- NOTE | 2023-06-16 16:20 | PC.NURSE ---
pt signed out CLARA Farfan Mary notidied
--- NOTE | 2023-06-16 16:26 | P.DS_ITS ---
DS: Providers Provider Date of Service: 06/16/23 Date of admission: 06/15/23 03:35 Date of discharge: 06/16/23 Primary care physician: MARIA ESTHER Miller Consults: 06/15/23 03:47 Addiction Medicine Routine Consulting Provider: Addiction Covering Reason for consultation: Alcohol use disorder Consult to Care Team Routine Comment: Reason for consultation: Alcohol use disorder DS: Diagnosis Discharge Diagnosis (1) Alcoholic ketoacidosis: Status: Acute (2) Alcoholic hepatitis: Status: Acute (3) Thrombocytopenia: Status: Acute (4) Hyponatremia: Status: Acute (5) Hypophosphatemia: Status: Acute (6) Alcoholic hepatitis without ascites: Status: Acute (7) Alcohol withdrawal: Status: Acute DS: Summary Hospital Course Hospital Course: from H+P by hospitalist Peewee Geiger MD, 06/15/23: This is a 32-year-old male with pertinent history of alcohol use disorder, essential hypertension, mood disorder who presents to the emergency department for concerns of alcohol withdrawal. Patient states that over the last 1 and half years he has been drinking extensively. He drinks vodka every day. He has been through several rehab facilities but he is unable to quit. His last drink was on the day of presentation. Denies alcohol withdrawal seizures but does have a history of delirium tremens. No suicidal or homicidal ideations. States he is feeling sweaty, anxious and has nausea and tremors since his last drink. No fever, chills, chest discomfort, palpitations, shortness of breath, abdominal pain, changes in urinary or bowel habits. In the emergency department, patient was initiated on phenobarb protocol 32yo M with AUD, HTN, mood disorder admitted for EtOH withdrawal. Placed on phenobarbital taper. Addiction Medicine consulted and follow-up with [facility] made. Mild alcoholic hepatitis, no steroids indicated. Alcoholic ketoacidosis resolved after IV fluid hydration. Low phosphorous repleted. Platelets dropped from 239 to 65, so Lovenox discontinued. Unfortunately, he decided to sign out AMA on 06/16/23 despite risks of doing so [incompletely treated alcohol withdrawal, bleeding from throbmocytopenia]. He was counseled to return to the hospital as soon as possible and have his CBC rechecked. Time Spent with Patient Time attestation: Total time managing care of this patient today __30__ minutes. Discharge coordination time: Greater than 30 minutes Quality: Safe Use of Opioids Does Pt have an Active Cancer Diagnosis on the Problem List?: No Quality: Stroke Does the patient have a stroke diagnosis?: No Physical Exam Vital Signs: Vital Signs: Last Vital Signs Temp 98.2 F 06/16/23 15:50 Pulse 98 06/16/23 15:50 Resp 18 06/16/23 15:50 BP 148/83 H 06/16/23 15:50 Pulse Ox 97 06/16/23 15:50 O2 Del Method Room Air 06/16/23 15:50 BMI result Body Mass Index 29.6 Gen: in no acute distress HEENT: sclera anicteric, moist mucus membranes Neck: supple Lungs: clear to auscultation bilaterally Heart: regular rate and rhythm, no murmurs Abd: soft, non-tender, non-distended Ext: no edema Skin: warm/well-perfused Neuro: alert and oriented x3, no focal findings Psych: appropriate affect DS: Data Data Completed and Pending Completed studies during hospitalization [Text1]: Laboratory Results WBC 5.2 X10*3/uL (4.8-10.8) 06/16/23 06:04 RBC 4.33 X10*6/uL (4.60-5.80) L 06/16/23 06:04 Hgb 12.9 g/dl (14.0-18.0) L 06/16/23 06:04 Hct 36.1 % (42.0-52.0) L 06/16/23 06:04 MCV 83.4 fL (80.0-98.0) 06/16/23 06:04 MCH 29.8 pg (27.0-33.0) 06/16/23 06:04 MCHC 35.7 g/dl (31.0-36.0) 06/16/23 06:04 RDW 12.9 % (11.0-16.0) 06/16/23 06:04 Plt Count 65 X10*3/uL (160-400) L D 06/16/23 06:04 MPV 11.5 fL (9.4-12.4) 06/16/23 06:04 Immature Gran % (Auto) 0.2 % (0.0-0.4) 06/15/23 05:32 Neut % (Auto) 41.6 % (45-73) L 06/15/23 05:32 Lymph % (Auto) 44.0 % (20-40) H 06/15/23 05:32 [place] % (Auto) 11.9 % (2-11) H 06/15/23 05:32 Eos % (Auto) 1.5 % (0-4) 06/15/23 05:32 Baso % (Auto) 0.8 % (0-2) 06/15/23 05:32 Lymph # (Auto) 4.0 X10*3/uL (1.2-4.9) 06/15/23 05:32 [place] # (Auto) 1.1 X10*3/uL (0.1-1.2) 06/15/23 05:32 Eos # (Auto) 0.1 X10*3/uL (0.0-0.4) 06/15/23 05:32 Baso # (Auto) 0.1 X10*3/uL (0.0-0.2) 06/15/23 05:32 Abs Immat Gran (auto) 0.02 X10*3/uL (0.00-0.03) 06/15/23 05:32 Absolute Neuts (auto) 3.8 x10*3/uL (2.0-8.3) 06/15/23 05:32 Absolute Nucleated RBC 0.000 X10*3/uL (0.0-0.012) 06/16/23 06:04 Nucleated RBC % (auto) 0.0 /100WBC (0.0-0.2) 06/16/23 06:04 Smear Tech's Comments VERIFIED 06/14/23 22:28 PT 11.0 SEC (11.1-13.3) L 06/16/23 06:04 INR 0.9 (0.9-1.1) 06/16/23 06:04 Sodium 131 mmol/L (135-145) L 06/16/23 06:04 Potassium 3.5 mmol/L (3.3-5.1) 06/16/23 06:04 Chloride 99 mmol/L (96-108) 06/16/23 06:04 Carbon Dioxide 24 mmol/L (22-29) 06/16/23 06:04 Anion Gap 12 (12-20) 06/16/23 06:04 BUN 11 mg/dL (9-16) 06/16/23 06:04 Creatinine 0.77 mg/dL (0.5-1.4) 06/16/23 06:04 Estim Creat Clear Calc 190.7 06/16/23 06:04 Estimated GFR > 60 06/16/23 06:04 Random Glucose 95 mg/dL (60-115) 06/16/23 06:04 Calcium 9.0 mg/dL (8.4-10.2) 06/16/23 06:04 Phosphorus 2.9 mg/dL (2.7-4.5) 06/16/23 06:04 Magnesium 1.8 mg/dL (1.6-2.6) 06/16/23 06:04 Total Bilirubin 2.5 mg/dL (0.0-1.0) H 06/16/23 06:04 AST 84 U/L (5-37) H 06/16/23 06:04 ALT 78 U/L (0-40) H 06/16/23 06:04 Alkaline Phosphatase 115 U/L (39-117) 06/16/23 06:04 Total Protein 6.2 g/dL (6.5-8.0) L 06/16/23 06:04 Albumin 3.6 g/dL (3.5-5.0) 06/16/23 06:04 Lipase 15 U/L (8-78) 06/14/23 22:28 Urine Opiates Screen Not Detected (Not Detect) 06/14/23 23:52 Urine Fentanyl Screen Not Detected (Not Detect) 06/14/23 23:52 Ur Barbiturates Screen POSITIVE (Not Detect) H 06/14/23 23:52 Ur Phencyclidine Scrn Not Detected (Not Detect) 06/14/23 23:52 Ur Amphetamines Screen Not Detected (Not Detect) 06/14/23 23:52 U Benzodiazepines Scrn Not Detected (Not Detect) 06/14/23 23:52 Urine Cocaine Screen Not Detected (Not Detect) 06/14/23 23:52 U Marijuana (THC) Screen Not Detected (Not Detect) 06/14/23 23:52 Ethyl Alcohol 375 mg/dL H* 06/14/23 22:28 Discharge Plan Discharge Patient Disposition: Left Against Medical Advice Discharge Diagnosis: alcohol use disorder alcohol withdrawal alcoholic ketoacidosis thrombocytopenia left against medical advice Referrals: Yrn Bui PA [Primary Care Provider] - 1 Week Nati oTrres CNP [Nurse Practitioner] - 1 Day Discharge Medications: Continued lisinopril 10 mg tablet 1 tab PO DAILY thiamine HCl (vitamin B1) 100 mg tablet 100 mg PO DAILY folic acid 1 mg tablet 1 mg PO DAILY bupropion HCl 300 mg tablet extended release 24 hr 300 mg PO DAILY multivitamin with folic acid [Daily-Roma (with folic acid)] 400 mcg tablet 1 tab PO DAILY clonidine HCl 0.2 mg tablet 0.2 mg PO BEDTIME PRN (Reason: Anxiety) omeprazole 20 mg capsule,delayed release(DR/EC) 20 mg PO DAILY Qty: 30 0RF potassium, sodium phosphates [Phos-NaK] 280-160-250 mg powder in packet 1 packet PO BID Qty: 10 0RF prazosin 1 mg capsule 1 mg PO BEDTIME hydroxyzine HCl 50 mg tablet 50 mg PO BEDTIME PRN (Reason: insomnia) amlodipine 5 mg tablet 5 mg PO DAILY buspirone 10 mg tablet 20 mg PO BID Discharge Orders: Discharge Order (Routine); Ordered 06/16/23 Ordered By: Kan Hernandez Other Ambulatory Orders: Complete Blood Count no Diff (Routine) Timeframe: 1 Day Facility: [facility] - Location: Laboratory Ordered By: Kan Hernandez Care Plan Goals: sobriety Health Concerns: alcohol use disorder alcohol withdrawal alcoholic ketoacidosis thrombocytopenia left against medical advice Plan of Treatment: return to hospital as soon as possible keep your appointment with [facility] on 06/17/23 for treatment of alcohol use disorder do not drink alcohol; phenobarbital has a long half-life and the combination with alcohol can cause dangerous sedation continue all medications recheck CBC in 1-2 days Please follow up with your primary care doctor within 1 week. Return to the hospital if you experience recurrent or worsening symptoms. Assessment: See Discharge Summary.
== END 2023-06-16 16:29 | disposition left against medical advice (07) | DRG 280 ==
LOC: HO.ED 06-15 03:17 → HO.EDOVER 06-15 03:40 → HO.S3 06-15 14:06
PROVIDERS: Admitting Provider Student in an Organized Health Care Education/Training Program; Emergency Provider Student in an Organized Health Care Education/Training Program; PCP Physician Assistant Medical; Visit Provider Family Medicine
DX: K70.10 Alcoholic hepatitis without ascites (principal); E87.29 Other acidosis; E83.39 Other disorders of phosphorus metabolism; D69.59 Other secondary thrombocytopenia; F10.139 Alcohol abuse with withdrawal, unspecified; F10.129 Alcohol abuse with intoxication, unspecified; Y90.8 Blood alcohol level of 240 mg/100 ml or more; I10 Essential (primary) hypertension; F39 Unspecified mood [affective] disorder; Z79.899 Other long term (current) drug therapy
CPT/HCPCS: 36415; 80048; 80053; 80307; 83690; 83735; 84100; 85025; 85027; 85610; 93005; 99285; J1650; J2405; J2560; J3411

== ENCOUNTER → 2023-06-15 03:35 | Outpatient (BNV) | payer OTHER, SELFPAY | PROVIDERS: Admitting Provider Student in an Organized Health Care Education/Training Program; Emergency Provider Student in an Organized Health Care Education/Training Program; PCP Physician Assistant Medical; Visit Provider Student in an Organized Health Care Education/Training Program | DX: K70.10 Alcoholic hepatitis without ascites (principal); D69.6 Thrombocytopenia, unspecified; F10.939 Alcohol use, unspecified with withdrawal, unspecified; E83.39 Other disorders of phosphorus metabolism; E87.29 Other acidosis; E87.1 Hypo-osmolality and hyponatremia | CPT/HCPCS: 99222; 99239; 99499 ==

== ENCOUNTER 2023-06-17 14:28 | Outpatient (AMB) | payer OTHER, SELFPAY ==
--- NOTE | 2023-06-17 14:29 | A.OFFVIS_ITS ---
Intake Vital Signs 06/17/23 14:35 BP 136/72 Blood Pressure Location Lt radial Position Sitting Pulse 122 H Pulse Source Pulse Oximeter Pulse Oximetry (%) 97 Oxygen Delivery Method Room Air Intake Visit Reasons: mat intake Intake Note: The patient presents for a mat intake Engineer Second Assistant Required: No Allergies No Known Allergies Allergy (Verified 06/17/23 14:36) Medication List - Last Reconciled 06/17/23 by Nati Torres CNP amlodipine 5 mg PO DAILY bupropion HCl 300 mg PO DAILY buspirone 20 mg PO BID clonidine HCl 0.2 mg PO BEDTIME PRN folic acid 1 mg PO DAILY hydroxyzine HCl 50 mg PO BEDTIME PRN lisinopril 1 tab PO DAILY multivitamin with folic acid 400 mcg (Daily-Roma (with folic acid)) 1 tab PO DAILY omeprazole 20 mg PO DAILY prazosin 1 mg PO BEDTIME thiamine HCl (vitamin B1) 100 mg PO DAILY Do you need a note to return to daycare/school/sports/work: No HPI mat intake HPI Details [facility] Recently medically admitted for alcohol withdrawal at [facility] and self initiated discharge. He reports he just needed out of this hospital . Last drink earlier today. Patient tearful several times during visit. Substance use and treatment history: -Patient reports drinking vodka daily ov er the last 1.5-2 years to cope with increasing anxiety, hypervigilence, paranoia and isolation. 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 -denies any other substance use Not currently engaged with any treatment providers e Medication Trials Buspar started at [facility] Gabapentin at [facility] side effects Mirtazipine for sleep -- Vivitrol, preferred Naltrexone Discussed goals with patient, he reports that he wishes to stop drinking all together and to be like I used to be, not afraid to be around people, not to have all these thoughts running through my head . [facility] Medical History Hypertension Depression Anxiety Social History Household Members: Spouse Housing: Apartment Do you presently have visiting nurse or other home services: No Alcohol intake: current Alcohol intake frequency: 3 or more drinks per day Alcohol type: hard liquor Patient Tobacco Use Status: Never used Tobacco service: No Review of Systems Const Reports as per HPI and Reports difficulty sleeping Psych Reports anxiety, Reports depression, Reports difficulty concentrating, Reports anhedonia and Reports paranoia Physical Exam Vital Signs: Last Vital Signs Pulse 122 H 06/17/23 14:35 BP 136/72 06/17/23 14:35 Pulse Ox 97 06/17/23 14:35 Oxygen Delivery Method Room Air 06/17/23 14:35 Const General: cooperative and anxious Nutritional Appearance: average body habitus Orientation/consciousness: patient oriented x3 Limitations: no limitations Neuro General: patient oriented x3 Psych Appearance: well kempt Speech and movement: Normal speech and movement present Affect: Anxious affect present and Depressed mood present Thought process: Circumstantial thought process present and Perseverating thought process present Thought content: Depressive thoughts present Insight: Fair insight present (Psych) Judgement: Fair judgement present (Psych) Assessment & Plan Assessment & Plan (1) Alcohol use disorder, severe, dependence: Code(s): F10.20 - Alcohol dependence, uncomplicated Plan: * risk reduction discussion * naltrexone 50mg QD (2) Post traumatic stress disorder (PTSD): Code(s): F43.10 - Post-traumatic stress disorder, unspecified Plan: * seroquel 12.5mg BID and 25-50mg QHS * will discuss therapy referral at next visit * follow up one week Medications: New quetiapine (Seroquel) 1/2 tab orally in the morning and afternoon as needed for anxiety 1-2 tabs at bedtime for sleep 20 tabs 0RF naltrexone take 1/2 tab daily for 3 days then increase to one tab daily 50 mg PO DAILY 30 tabs 0RF Coding Level of Care Code New Pt Level 4 (03913) Diagnoses Alcohol use disorder, severe, dependence F10.20 Post traumatic stress disorder (PTSD) F43.10
[2023-06-17 14:35] VITALS: BP 136/72; PULSE 122; O2SAT 97
== END 2023-06-17 16:04 | disposition home or self-care (01) ==
PROVIDERS: PCP Physician Assistant Medical; Visit Provider Nurse Practitioner Psychiatric/Mental Health
DX: F10.20 Alcohol dependence, uncomplicated (principal); F43.10 Post-traumatic stress disorder, unspecified
CPT/HCPCS: 99204

== ENCOUNTER → 2023-06-17 14:28 | Outpatient (BNVA) | payer OTHER, SELFPAY | PROVIDERS: PCP Physician Assistant Medical; Visit Provider Nurse Practitioner Psychiatric/Mental Health ==

== ENCOUNTER 2023-06-27 11:02 | Outpatient (AMB) | payer OTHER, SELFPAY ==
[2023-06-27 11:11] VITALS: BP 138/88; PULSE 129; O2SAT 96
--- NOTE | 2023-06-27 11:11 | A.OFFVIS_ITS ---
Intake Vital Signs 06/27/23 11:11 BP 138/88 Blood Pressure Location Rt brachial Position Sitting Pulse 129 H Pulse Source Pulse Oximeter Pulse Oximetry (%) 96 Oxygen Delivery Method Room Air Intake Visit Reasons: MAT Visit Allergies No Known Allergies Allergy (Verified 06/30/23 13:42) HPI MAT Visit HPI Details Patient presents for follow up Admission to [facility] for 7 days at [facility] 2 nips this morning Buspirone 2x/day Will be starting AA soon with a friend Discussed medication changes. Wellbutrin was stopped at [facility]. [facility] Medical History Hypertension Depression Anxiety Social History Household Members: Spouse Housing: Apartment Do you presently have visiting nurse or other home services: No Alcohol intake: current Alcohol intake frequency: 3 or more drinks per day Alcohol type: hard liquor Patient Tobacco Use Status: Never used Tobacco Advance Directives: Yes Advance Directives on File: Yes Advance Directives Date on File: 02/16/23 Healthcare Proxy: No Guardian: No service: No Review of Systems Const Reports as per HPI and Reports difficulty sleeping Psych Reports anxiety, Reports depression, Reports difficulty concentrating and Reports anhedonia Physical Exam Vital Signs: Last Vital Signs Pulse 129 H 06/27/23 11:11 BP 138/88 06/27/23 11:11 Pulse Ox 96 06/27/23 11:11 Oxygen Delivery Method Room Air 06/27/23 11:11 Const General: cooperative and anxious Nutritional Appearance: average body habitus Orientation/consciousness: patient oriented x3 Limitations: no limitations Neuro General: patient oriented x3 Psych Appearance: well kempt Speech and movement: Normal speech and movement present Affect: Anxious affect present and Depressed mood present Thought process: Circumstantial thought process present and Perseverating thought process present Thought content: Depressive thoughts present Insight: Fair insight present (Psych) Judgement: Fair judgement present (Psych) Assessment & Plan Assessment & Plan (1) Alcohol use disorder, severe, dependence: Code(s): F10.20 - Alcohol dependence, uncomplicated Plan: * continue naltrexone * risk reduction discussion (2) Post traumatic stress disorder (PTSD): Code(s): F43.10 - Post-traumatic stress disorder, unspecified Plan: * encouraged to take seroquel to address anxiety sx --encouraged to take more scheduled * discussed challenges with treating BH sx with ongoing alcohol use Medications: New clonidine HCl 0.2 mg PO BEDTIME PRN 30 tabs 0RF Anxiety Refilled quetiapine (Seroquel) 1/2 tab orally in the morning and afternoon as needed for anxiety 1-2 tabs at bedtime for sleep 60 tabs 0RF Coding Level of Care Code Est Pt Level 4 (79802) Diagnoses Alcohol use disorder, severe, dependence F10.20 Post traumatic stress disorder (PTSD) F43.10
== END 2023-06-27 11:46 | disposition home or self-care (01) ==
PROVIDERS: PCP Physician Assistant Medical; Visit Provider Nurse Practitioner Psychiatric/Mental Health
DX: F10.20 Alcohol dependence, uncomplicated (principal); F43.10 Post-traumatic stress disorder, unspecified
CPT/HCPCS: 99214

== ENCOUNTER → 2023-06-27 11:02 | Outpatient (BNVA) | payer OTHER, SELFPAY | PROVIDERS: PCP Physician Assistant Medical; Visit Provider Nurse Practitioner Psychiatric/Mental Health ==

== ENCOUNTER 2023-06-30 13:34 | Emergency (ER) | payer OTHER, SELFPAY ==
[2023-06-30 13:40] VITALS: BP 153/95; PULSE 88; RESP 20; TEMP 36.8; O2SAT 98; BMI 25.0
[2023-06-30 14:11] LABS: MANUAL DIFF FLAG NO
--- NOTE | 2023-06-30 14:12 | ED.PSYCH ---
HPI - Psych General Chief Complaint: Behavioral Concerns Stated Complaint: Section 12 Time Seen by Provider: 06/30/23 13:39 Source: patient and police Mode of arrival: ambulatory Limitations: other ( intoxicated) History of Present Illness HPI Narrative: patient comes to the emergency room by private vehicle, but accompanied by police department. 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 Patient is known to have alcohol abuse problems. Patient states that he was brought in by his coworkers. According to PD, the patient's is not at home, but she called PD because the patient had been sending her messages stating that he was going to kill himself either by shooting himself or driving his car into a tree. 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 However, patient is denying that he is suicidal or homicidal. Patient admits that he drinks alcohol heavily and drank a heavy amount of vodka Prior to arrival. Of note, patient left the rehab facility either late last night or early this morning. Police officers came with a copy of a Section 12 was signed today at 12:35. I asked the PD coworkers why was the patient discharged when a Section 12 was signed about less than 2 hours ago. Seems that a Section 12 was signed after patient had eloped the facility. patient states that he has no interest in going to detox Related Data Home Medications Medication Instructions Recorded Confirmed lisinopril 10 mg tablet 1 tab PO DAILY 05/16/22 06/17/23 folic acid 1 mg tablet 1 mg PO DAILY 02/11/23 06/17/23 multivitamin with folic acid 400 1 tab PO DAILY 02/11/23 06/17/23 mcg tablet (Daily-Roma (with folic acid)) thiamine HCl (vitamin B1) 100 mg 100 mg PO DAILY 02/11/23 06/17/23 tablet amlodipine 5 mg tablet 5 mg PO DAILY 06/15/23 06/17/23 buspirone 10 mg tablet 20 mg PO BID anxiety 06/15/23 06/17/23 prazosin 1 mg capsule 1 mg PO BEDTIME 06/15/23 06/17/23 Previous Rx's Medication Instructions Recorded omeprazole 20 mg capsule,delayed 20 mg PO DAILY #30 caps 02/15/23 release naltrexone 50 mg tablet 50 mg PO DAILY #30 tabs 06/17/23 clonidine HCl 0.2 mg tablet 0.2 mg PO BEDTIME PRN Anxiety #30 06/27/23 tabs quetiapine 25 mg tablet (Seroquel) See Rx Instructions PO .COMPLEX 06/27/23 #60 tabs Allergies Allergy/AdvReac Type Severity Reaction Status Date / Time No Known Allergies Allergy Verified 06/30/23 13:42 Review of Systems Review of Systems: Constitutional : No Weight loss, No Fever, No Chills, No Night Sweats, No Fatigue, No Malaise ENT/Mouth : No Hearing loss, No Ear Pain, No Nasal Congestion, No Sinus Pain, No Hoarseness, No sore throat, No Rhinorrhea, No Swallowing Difficulty Eyes: No Eye Pain, No Swelling, No Redness, No Foreign Body, No Discharge, No Vision Changes Cardiovascular : No Chest Pain, No SOB, No Dyspnea on Exertion, No Orthopnea, No Edema, No Palpitations Respiratory : No Cough, No Sputum, No Wheezing, No Smoke Exposure, No Dyspnea Gastrointestinal : No Nausea, No Vomiting, No Diarrhea, No Constipation, No abdominal Pain, No Hematochezia, No Melena Genitourinary : no irregular bleeding, No Dysuria, No Urinary Frequency, No Hematuria, No Urinary Incontinence, No Urgency, No Flank Pain, No Urinary Flow Changes, No Hesitancy Musculoskeletal : No joint pain, No Myalgias, No Joint Swelling Skin : No Skin Lesions, No rash Neuro : No Weakness, No Numbness, No Paresthesias, No Loss of Consciousness, No Dizziness, No Headache Psych : patient denies SI or HI, admits to heavily drinking alcohol. Heme/Lymph: No Bruising, No Bleeding,No Lymphadenopathy Endocrine : No Polyuria, No Polydipsia, No Temperature Intolerance [facility] Past Medical History Medical History Hypertension Depression Anxiety Social History Social History Household Members: Spouse Housing: Apartment Do you presently have visiting nurse or other home services: No Alcohol intake: current Alcohol intake frequency: 3 or more drinks per day Alcohol type: hard liquor Patient Tobacco Use Status: Never used Tobacco Advance Directives: Yes Advance Directives on File: Yes Advance Directives Date on File: 02/16/23 service: No Physical Exam Vital Signs: Vital Signs: Last Vital Signs Temp 98.2 F 06/30/23 13:40 Pulse 88 06/30/23 13:40 Resp 20 06/30/23 13:40 BP 153/95 H 06/30/23 13:40 Pulse Ox 98 06/30/23 13:40 O2 Del Method Room Air 06/30/23 13:40 BMI result Body Mass Index 25.0 Const: Other: Appearance: Alert. Oriented X3. No acute distress. intoxicated Eyes: Pupils equal, round and reactive to light. ENT: Pharynx normal. Neck: Normal inspection. Neck supple. No lymph nodes noted. No crepitus CVS: Normal heart rate and rhythm. Pulses normal. Normal S1 and S2 Respiratory: No respiratory distress. Breath sounds normal. No Wheezing. No rales Abdomen: Soft and nontender. No rigidity. No distention. Skin: Skin warm and dry. Normal skin color. Normal skin turgor. Extremities: No lower extremity edema. No Lacerations. No Rash Neuro: Oriented X 3. No motor deficit. No sensory deficit. Moving all extremities. No slurred speech. CN 2 through 12 grossly intact Psych: calm, cooperative, normal affect, intoxicated Course Course Course Narrative: - patient is on a Section 12 and on one-to-one - all of patient's labs pending - care teamconsult pending Medical Decision Making Medical Decision Making [facility] Narrative: - my interpretation of labs: Normal hematology, sodium 147, no need for correction. LFTs chronically elevated due to EtOH, - ETOH level positive -patient remains on a Section 12 of, care Team consult pending Differential Diagnosis Differential Diagnoses: The differential diagnosis associated with the presentation includes ( alcohol abuse, alcohol dependence, polysubstance abuse, anxiety, depression) Admission/Observation Consideration of admission/observation: Escalation of care including admission/observation considered ( patient is on a Section 12, care team consult pending to determine disposition of the patient.) Lab Data [facility] Lab Attestation statement: I reviewed the patient's lab results. 06/30/23 14:06 06/30/23 14:06 Labs: Lab Results 06/30/23 Range/Units 14:06 WBC 6.9 (4.8-10.8) X10*3/uL RBC 5.55 D (4.60-5.80) X10*6/uL Hgb 16.9 D (14.0-18.0) g/dl Hct 49.4 D (42.0-52.0) % MCV 89.0 (80.0-98.0) fL MCH 30.5 (27.0-33.0) pg MCHC 34.2 (31.0-36.0) g/dl RDW 14.7 (11.0-16.0) % Plt Count 227 D (160-400) X10*3/uL MPV 10.6 (9.4-12.4) fL Immature Gran % (Auto) 0.1 (0.0-0.4) % Neut % (Auto) 46.9 (45-73) % Lymph % (Auto) 43.6 H (20-40) % Gordon % (Auto) 7.4 (2-11) % Eos % (Auto) 0.7 (0-4) % Baso % (Auto) 1.3 (0-2) % Lymph # (Auto) 3.0 (1.2-4.9) X10*3/uL Gordon # (Auto) 0.5 (0.1-1.2) X10*3/uL Eos # (Auto) 0.1 (0.0-0.4) X10*3/uL Baso # (Auto) 0.1 (0.0-0.2) X10*3/uL Abs Immat Gran (auto) 0.01 (0.00-0.03) X10*3/uL Absolute Neuts (auto) 3.2 (2.0-8.3) x10*3/uL Absolute Nucleated RBC 0.000 (0.0-0.012) X10*3/uL Nucleated RBC % (auto) 0.0 (0.0-0.2) /100WBC PT 11.7 (11.1-13.3) SEC INR 1.0 (0.9-1.1) Sodium 147 H (135-145) mmol/L Potassium 4.0 (3.3-5.1) mmol/L Chloride 104 (96-108) mmol/L Carbon Dioxide 31 H (22-29) mmol/L Anion Gap 16 (12-20) BUN 11 (9-16) mg/dL Creatinine 0.90 (0.5-1.4) mg/dL Estim Creat Clear Calc 139.5 Estimated GFR > 60 Random Glucose 128 H (60-115) mg/dL Calcium 9.4 (8.4-10.2) mg/dL Magnesium 2.3 (1.6-2.6) mg/dL Total Bilirubin 0.4 (0.0-1.0) mg/dL Direct Bilirubin 0.2 (0.0-0.5) mg/dL AST 38 H (5-37) U/L ALT 49 H (0-40) U/L Alkaline Phosphatase 129 H (39-117) U/L Total Protein 8.4 H (6.5-8.0) g/dL Albumin 4.8 (3.5-5.0) g/dL Ethyl Alcohol 374 H* mg/dL Critical Care Time Critical Care Time Critical Care Time: Yes Total Critical Care Time: 30 Attestation: I have personally provided critical care time. Time includes review of lab data, radiology results, discussion with consultants, and monitoring for potential decompensation. Intervention performed as documented. Discharge Plan Discharge Clinical Impression: Alcohol intoxication, Alcohol dependence Patient Disposition: Still a Patient Prescriptions: No Action lisinopril 10 mg tablet 1 tab PO DAILY thiamine HCl (vitamin B1) 100 mg tablet 100 mg PO DAILY folic acid 1 mg tablet 1 mg PO DAILY multivitamin with folic acid [Daily-Roma (with folic acid)] 400 mcg tablet 1 tab PO DAILY omeprazole 20 mg capsule,delayed release(DR/EC) 20 mg PO DAILY Qty: 30 0RF prazosin 1 mg capsule 1 mg PO BEDTIME amlodipine 5 mg tablet 5 mg PO DAILY buspirone 10 mg tablet 20 mg PO BID naltrexone 50 mg tablet 50 mg PO DAILY Qty: 30 0RF Rx Instructions: take 1/2 tab daily for 3 days then increase to one tab daily quetiapine [Seroquel] 25 mg tablet See Rx Instructions PO .COMPLEX Qty: 60 0RF Rx Instructions: 1/2 tab orally in the morning and afternoon as needed for anxiety 1-2 tabs at bedtime for sleep clonidine HCl 0.2 mg tablet 0.2 mg PO BEDTIME PRN (Reason: Anxiety) Qty: 30 0RF
[2023-06-30 14:21] LABS: Basophils Absolute Auto 0.1 X10*3/uL (0.0-0.2); Basophils Percent Auto 1.3 % (0-2); Eosinophils Absolute Auto 0.1 X10*3/uL (0.0-0.4); Eosinophils Percent Auto 0.7 % (0-4); Hematocrit 49.4 % (42.0-52.0); Hemoglobin 16.9 g/dl (14.0-18.0); Imm Gran Abs Auto 0.01 X10*3/uL (0.00-0.03); Imm Gran Pct Auto 0.1 % (0.0-0.4); Lymphocytes Percent Auto 43.6 % (20-40); Mean Corpuscular HGB Conc 34.2 g/dl (31.0-36.0); Mean Corpuscular Hemoglobin 30.5 pg (27.0-33.0); Mean Platelet Volume 10.6 fL (9.4-12.4); Monocytes Absolute Auto 0.5 X10*3/uL (0.1-1.2); Monocytes Percent Auto 7.4 % (2-11); Neutrophils Absolute Auto 3.2 x10*3/uL (2.0-8.3); Neutrophils Percent Auto 46.9 % (45-73); Platelet Count 227 X10*3/uL (160-400); Prothrombin Time 11.7 SEC (11.1-13.3); Red Blood Count 5.55 X10*6/uL (4.60-5.80); Red Cell Distribution Width 14.7 % (11.0-16.0); White Blood Count 6.9 X10*3/uL (4.8-10.8)
[2023-06-30 14:40] LABS: Alanine Aminotransferase 49 U/L (0-40); Albumin Level 4.8 g/dL (3.5-5.0); Alkaline Phosphatase 129 U/L (39-117); Anion Gap 16 (12-20); Aspartate Amino Transferase 38 U/L (5-37); Bilirubin Direct 0.2 mg/dL (0.0-0.5); Bilirubin Total 0.4 mg/dL (0.0-1.0); Blood Urea Nitrogen 11 mg/dL (9-16); Calcium 9.4 mg/dL (8.4-10.2); Carbon Dioxide 31 mmol/L (22-29); Chloride 104 mmol/L (96-108); Creatinine Clr Calc Pharmacy 139.5; Estimated Glomerular Filt Rate > 60; Ethanol 374 mg/dL; Glucose Random 128 mg/dL (60-115); Magnesium 2.3 mg/dL (1.6-2.6); Sodium 147 mmol/L (135-145); Total Protein 8.4 g/dL (6.5-8.0)
--- NOTE | 2023-06-30 15:49 | PC.NURSE ---
security at bedside to change patient over into hospital attire
--- NOTE | 2023-06-30 15:53 | MHC.RECOVRN ---
Received call from Andie from [facility] that someone had reached out on behalf of pt to attempt to get pt placed at [facility]. If pt becomes interested in [facility]/is appropriate for [facility] level of care, Andie can be reached at [phone].
--- NOTE | 2023-06-30 16:03 | PC.NURSE ---
belongings placed into bed 9, patient observer remains at the bedside
--- NOTE | 2023-06-30 17:40 | PC.NURSE ---
suitcase added to belongings, placed in laundry closet in the pod.
[2023-06-30 18:17] LABS: Amphetamine Screen Urine Not Detected (Not Detect); Barbiturates, Urine POSITIVE (Not Detect); Benzodiazepines Screen Urine Not Detected (Not Detect); Cannabinoid Screen Urine Not Detected (Not Detect); Cocaine Screen Urine Not Detected (Not Detect); Fentanyl, urine Not Detected (Not Detect); Opiate Screen Urine Not Detected (Not Detect); Phencyclidine Screen Urine Not Detected (Not Detect)
[2023-06-30 18:31] VITALS: BP 149/96; PULSE 119; RESP 18; O2SAT 95
[2023-06-30 21:17] VITALS: BP 136/85; PULSE 106; RESP 18; TEMP 37.2; O2SAT 97
--- NOTE | 2023-06-30 22:10 | MHC.CARE ---
Pts BAL will be 100 @ 1:00am. CARE team will assess him then.. If any one calls to check on him ( or Co-Workers ) please have them leave their number so that we can contact them as collaterals.Thanks
[2023-06-30] MEDS: LORazepam 1 MG TABLET 2 MG PO (22:14)
[2023-06-30 22:46] VITALS: BP 147/110; PULSE 112; RESP 12; O2SAT 95
--- NOTE | 2023-07-01 01:33 | PC.NURSE ---
Patient denies SI/HI at this time. VSS. Patient is alert and oriented x4. Patient c/o generalized body aches. He denies nausea/vomiting at time. Patient requested and provided with crackers, peanut butter, and ice cream with berto natalio-tolerated well. 1:1 at bedside.
[2023-07-01 02:49] VITALS: BP 145/92; PULSE 104; RESP 17; TEMP 36.7; O2SAT 97
[2023-07-01] MEDS: LORazepam 1 MG TABLET PO (02:52)
[2023-07-01] MEDS: ondansetron HCL 4 MG/2 ML VIAL IVPUSH (06:29)
[2023-07-01] MEDS: LORazepam 2 MG/ML VIAL 1 MG IVPUSH ×2 (06:29→07:23)
[2023-07-01 06:32] VITALS: BP 144/94; PULSE 107; RESP 11; TEMP 36.9; O2SAT 98
--- NOTE | 2023-07-01 06:34 | PC.NURSE ---
This RN was called in by MARLI, food safety technician who reported patient woke up feeling nauseous, actively vomiting. This RN assessed patient. VSS. Patient had 1 episode of vomiting with moderate amount of pale yellow vomitus in the bag. ED provider informed. Patient medicated with Lorazepam and Zofran IV push. CIWA assessment t completed, CIWA score 8. Dr. Swift notified. 1:1 sitter at bedside.
[2023-07-01 07:51] VITALS: BP 145/100; PULSE 100; RESP 14; TEMP 37.1; O2SAT 96
--- NOTE | 2023-07-01 08:06 | MHC.EDTECH ---
Vital signs taken and documented. BP of 145/100 reported to MARIA ESTHER Toth. Patient states he has not taken his blood pressure medication in at least three days MARNIE Tamayo also aware. Patient ambulated to bathroom with steady gait.
[2023-07-01] MEDS: lisinopriL 10 MG TABLET PO (08:16)
[2023-07-01] MEDS: amLODIPine Besylate 5 MG TABLET PO (08:16)
[2023-07-01] MEDS: cloNIDine HCL 0.2 MG TABLET PO (08:17)
[2023-07-01] MEDS: Omeprazole 20 MG CAPSULE.DR PO (08:44)
[2023-07-01 10:00] VITALS: BP 142/92; PULSE 107; RESP 18; O2SAT 96
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
--- NOTE | 2023-07-01 10:30 | PC.NURSE ---
Provider notified of CIWA, patient denies SI/HI. Care team called, aware that and patient want him to be transferred to [facility] today. Care team waiting for psych team to see patient for clear him for transfer to [facility].
--- NOTE | 2023-07-01 10:54 | PC.NURSE ---
Spoke with Hans from insight at [phone], who stated to call Too Posada at [facility] [phone] if bed is going to be accepted. [facility] spoke with patient to obtain health insurance information. X2 attempts to call to update unsuccessful at this time. Care team provided with Hans/Too/`s number to contact.
[2023-07-01] MEDS: LORazepam 1 MG TABLET 2 MG PO ×2 (10:58→16:39)
--- NOTE | 2023-07-01 11:55 | MHC.CARE ---
CARE Team received call from [facility] and Pt as not accepted to [facility] due to health insurance barrier.
--- NOTE | 2023-07-01 12:34 | PC.NURSE ---
Calm and cooperative, resting comfortably without s/s of withdrawl noted.
--- NOTE | 2023-07-01 14:07 | MHC.CARE ---
Clinical faxed to [facility]
[2023-07-01 14:39] VITALS: BP 146/83; PULSE 99; RESP 18; O2SAT 98
--- NOTE | 2023-07-01 14:44 | PC.NURSE ---
Spoke with Elijah from [facility], transport to be arranged for 3:15pm brain picker.
--- NOTE | 2023-07-01 14:55 | PC.NURSE ---
Patients notified of transfer to [facility] around 3:15pm
--- NOTE | 2023-07-01 15:59 | PC.NURSE ---
transport to [facility] to be here at 4:45, patient and father aware
--- NOTE | 2023-07-01 17:23 | PC.NURSE ---
Picked up by [facility] staff for transport to facility
== END 2023-07-01 17:24 ==
PROVIDERS: Emergency Provider Emergency Medicine; PCP Physician Assistant Medical
DX: F10.220 Alcohol dependence with intoxication, uncomplicated (principal); Y90.8 Blood alcohol level of 240 mg/100 ml or more; R79.89 Other specified abnormal findings of blood chemistry; F43.10 Post-traumatic stress disorder, unspecified; F41.9 Anxiety disorder, unspecified; F32.A Depression, unspecified; I10 Essential (primary) hypertension; Z79.899 Other long term (current) drug therapy
CPT/HCPCS: 36415; 80048; 80076; 80307; 83735; 85025; 85610; 96374; 96375; 96376; 99285; J2060; J2405; S9485